=== PATIENT | female | born 1980 | race Caucasian/White ===

== ENCOUNTER 2017-09-30 22:54 | Emergency (ER) | payer OTHER ==
[~2017-09-30] VITALS: Ht 162.6 cm; Wt 128.5 kg
[~2017-09-30 22:54] MED LIST: AZIT250T6 PO; CHLO15MO2 PO; HYDR-971 PO; IBUP800T19 PO; PENI500T PO
[2017-09-30 23:29] VITALS: BP 131/92
--- NOTE | 2017-09-30 23:40 | PHYS DOC ---
Past History Past Medical History: Cancer Past Surgical History: Appendectomy, , Tonsillectomy, Other Alcohol Use: Rarely Drug Use: None Adult General Chief Complaint Chief Complaint: BACK PAIN OR INJURY [facility] HPI 37-year-old female presents with low back pain that started 2 days ago. The patient fell down after missing a step at home. This was a concrete step and she landed on her buttocks. She did not have significant pain afterwards, but the pain in her lower right back has been increasing. Today it is painful to bend over as well as stand up straight. She feels like her muscles in this area very tight and cramping. The patient is oriented on high-dose hydrocodone and Norflex daily. She is on these because of chronic pain as a result of Surgery and cancer treatment in her right leg. She denies fever or chills. She has no other injuries or complaints. Review of Systems Review of Systems Constitutional: Denies fever or chills [] Eyes: Denies change in visual acuity, redness, or eye pain [] HENT: Denies nasal congestion or sore throat [] Respiratory: Denies cough or shortness of breath [] Cardiovascular: No additional information not addressed in HPI [] GI: Denies abdominal pain, nausea, vomiting, bloody stools or diarrhea [] : Denies dysuria or hematuria [] Musculoskeletal: Low back pain.[] Integument: Denies rash or skin lesions [] Neurologic: Denies headache, focal weakness or sensory changes [] Endocrine: Denies polyuria or polydipsia [] All other systems were reviewed and found to be within normal limits, except as documented in this note. Allergies Allergies Allergies Coded Allergies Type Severity Reaction Last Updated Verified cephalexin Allergy Intermediate rash 11/27/14 No Cephalosporins Allergy Unknown 06/06/15 Yes prochlorperazine Allergy Unknown 06/06/15 Yes sargramostim Allergy Unknown 06/06/15 Yes vancomycin Allergy Unknown 12/17/14 No Physical Exam Physical Exam Constitutional: Well developed, well nourished, no acute distress, non-toxic appearance. [] HENT: Normocephalic, atraumatic, bilateral external ears normal, oropharynx moist, no oral exudates, nose normal. [] Eyes: PERRLA, EOMI, conjunctiva normal, no discharge. [] Neck: Normal range of motion, no tenderness, supple, no stridor. [] Cardiovascular:Heart rate regular rhythm, no murmur [] Lungs & Thorax: Bilateral breath sounds clear to auscultation [] Abdomen: Bowel sounds normal, soft, no tenderness, no masses, no pulsatile masses. [] Skin: Warm, dry, no erythema, no rash. [] Back: Tenderness over the right sacroiliac joint. Lower lumbar paraspinal muscle spasm, worse on the right[] Extremities: No tenderness, no cyanosis, no clubbing, ROM intact, no edema. [] Neurologic: Alert and oriented X 3, normal motor function, normal sensory function, no focal deficits noted. [] Psychologic: Affect normal, judgement normal, mood normal. [] Current Patient Data Vital Signs Vital Signs Date Time Temp Pulse Resp B/P (MAP) Pulse Ox O2 Delivery O2 Flow Rate FiO2 09/30/17 22:54 98.1 91 26 99 Room Air EKG EKG [] Radiology/Procedures Radiology/Procedures [] Course & Med Decision Making Course & Med Decision Making Pertinent Labs and Imaging studies reviewed. (See chart for details) Based on the history and physical exam, the patient has right sacroiliac pain. She likely strained this joint when she fell and the reflex spasm as the cause of her pain. I will give her 5 days of prednisone 50 mg to decrease inflammation. She is already on muscle relaxer twice a day. She will follow up with her PCP in 5 days. If her condition does not improve she'll discuss further options with him/her. [] Dragon Disclaimer Dragon Disclaimer This electronic medical record was generated, in whole or in part, using a voice recognition dictation system. Departure Departure: Referrals: OTTO HUDSON APRN (PCP) CHRISTY ALVAREZ DO Sep 30, 2017 23:40
[2017-09-30] MEDS ORDERED: PRED50TA PO (23:58)
[2017-10-01] MEDS ORDERED: predniSONE 20 MG TABLET PO ONE
== END 2017-10-01 00:03 | disposition home or self-care (01) ==
LOC: ER 22:54
DX: M53.3 Sacrococcygeal disorders, not elsewhere classified (principal); M54.5 Low back pain; Z90.49 Acquired absence of other specified parts of digestive tract; Z98.890 Other specified postprocedural states; Z88.1 Allergy status to other antibiotic agents; Z88.8 Allergy status to other drugs, medicaments and biological substances
CPT/HCPCS: 99283; J7512

== ENCOUNTER 2018-01-07 12:18 | Emergency (ER) | payer OTHER ==
[~2018-01-07] VITALS: Ht 162.6 cm; Wt 127.5 kg
[~2018-01-07 12:18] MED LIST changes: +PRED50TA PO
[2018-01-07] MEDS ORDERED: IV NORMAL SALINE 1,000ML 1,000 ML IV SCH (12:31)
--- NOTE | 2018-01-07 12:54 | PHYS DOC ---
Past History Past Medical History: Cancer Past Surgical History: Appendectomy, , Tonsillectomy, Other Smoking: Cigarettes, Less than 1pk/day Alcohol Use: Rarely Drug Use: None Adult General Chief Complaint Chief Complaint: ABDOMINAL PAIN HPI HPI Patient is a 37 year old female who presents in by EMS because of nausea and vomiting and abdominal pain. Patient states she started to have nausea 4 days ago and since yesterday had 5 episodes of nonbloody vomiting and 5 or 6 episodes of diarrhea. Patient complaining of constant right-sided abdominal pain as a constant pain that getting force with movement and vomiting. Patient states she was not able to take her home hydrocodone since last night because of vomiting and rated her pain 8/10. Patient complaining of chills. Patient denies fever, urinary symptoms, sick contact, throughout the same problem, vaginal bleeding or discharge. Patient had history of cholecystectomy and hysterectomy. According to EMR patient had history of appendectomy. Review of Systems Review of Systems Constitutional: Denies fever, reports chills [] Eyes: Denies change in visual acuity, redness, or eye pain [] HENT: Denies nasal congestion or sore throat [] Respiratory: Denies cough or shortness of breath [] Cardiovascular: No additional information not addressed in HPI [] GI: Reports abdominal pain, nausea, vomiting, diarrhea [] : Denies dysuria or hematuria [] Musculoskeletal: Denies back pain or joint pain [] Integument: Denies rash or skin lesions [] Neurologic: Denies headache, focal weakness or sensory changes [] Endocrine: Denies polyuria or polydipsia [] All other systems were reviewed and found to be within normal limits, except as documented in this note. Allergies Allergies Allergies Coded Allergies Type Severity Reaction Last Updated Verified cephalexin Allergy Intermediate rash 11/27/14 No Cephalosporins Allergy Unknown 06/06/15 Yes prochlorperazine Allergy Unknown 06/06/15 Yes sargramostim Allergy Unknown 06/06/15 Yes vancomycin Allergy Unknown 12/17/14 No Physical Exam Physical Exam Constitutional: Well nourished, moderate distress, non-toxic appearance, morbidly obese. [] HENT: Normocephalic, atraumatic, oropharynx moist, no oral exudates, nose normal. [] Eyes: PERRLA, EOMI, conjunctiva normal, no discharge. [] Neck: Normal range of motion, no tenderness, supple, no stridor. [] Cardiovascular:Heart rate regular rhythm, no murmur [] Lungs & Thorax: Bilateral breath sounds clear to auscultation [] Abdomen: Bowel sounds normal, soft, no tenderness, right-sided abdominal guarding without positive McBurney sign, no masses, no pulsatile masses. [] Skin: Warm, dry, no erythema, no rash. [] Back: No tenderness, no CVA tenderness. [] Extremities: No tenderness, no cyanosis, no clubbing, ROM intact, no edema. [] Neurologic: Alert and oriented X 3, normal motor function, normal sensory function, no focal deficits noted. [] Psychologic: Affect anxious, judgement normal, mood normal. [] EKG EKG [] Radiology/Procedures Radiology/Procedures [address] [address] IMAGING REPORT Signed PATIENT: SARAH URENA ACCOUNT: [id number] : 1980 LOCATION: ER AGE: 37 SEX: F EXAM STATUS: REG ER ORD. PHYSICIAN: RANDY SENA MD REASON: abdominal pain and nausea and vomiting and diarrhea PROCEDURE: CT ABD PELV W/ IV CONTRST ONLY CT abdomen and pelvis with contrast History: Mid lower abdominal pain, nausea and vomiting, diarrhea Technique: After the administration of intravenous contrast, CT imaging was performed of the abdomen and pelvis. No oral contrast was given as per request. Multiplanar images are reviewed. Exposure: One or more of the following individualized dose reduction techniques were utilized for this examination: 1. Automated exposure control 2. Adjustment of the mA and/or kV according to patient size 3. Use of iterative reconstruction technique. Comparison: CT pelvis exam February 28, 2016, no previous abdomen CT available; chest CT February 13, 2007 Findings: Small quantity of anterior right cardiophrenic fluid is stable compared with previous chest CT. There is likely hepatic steatosis. There has been cholecystectomy. There is no adrenal nodularity. Both kidneys enhance, no hydronephrosis. There is 2.7 cm left renal cyst. Evaluation of bowel is limited without oral contrast. Bowel is not significantly dilated. There is no significant free fluid or free air. Appendix caliber is upper limits of normal at 0.6 cm although no significant adjacent inflammatory-type change. There is suggestion of mild wall thickening of the more distal aspect of the ascending colon to the mid transverse colon. There is degenerative disc disease L5-S1. Impression: 1. While limited evaluation without oral contrast, there is suggestion of mild colonic wall thickening ascending to transverse colon as may be seen with colitis. 2. There is left renal cyst. 3. There is likely hepatic steatosis. Electronically signed by: Meme Leos MD (01/07/2018 1:40 PM) [facility] DICTATED AND SIGNED BY: MEME LEOS MD DATE: 01/07/18 1322 CC: RANDY SENA MD; CATRACHO SIMENTAL MD ~ Course & Med Decision Making Course & Med Decision Making Pertinent Labs and Imaging studies reviewed. (See chart for details) Evaluation of patient in ER showed 37-year-old male patient brought in by EMS because of nausea and vomiting and diarrhea and abdominal pain. Patient was anxious. Labs and physical exam was unremarkable except for morbid obesity. Of abdomen and pelvis showed colitis. Patient treated with IV fluid and Toradol and Zofran and states her nausea was better but still complaining of abdominal pain and treated with morphine. Plan to discharge patient home to diagnose of viral gastroenteritis and morbid obesity. Dragon Disclaimer Dragon Disclaimer This electronic medical record was generated, in whole or in part, using a voice recognition dictation system. Departure Departure: Impression: Primary Impression: Acute gastroenteritis Additional Impressions: Abdominal pain Colitis Tobacco abuse Tobacco abuse counseling Morbid obesity with BMI of 45.0-49.9, adult Disposition: 01 HOME, SELF-CARE (at 1430) Condition: IMPROVED Referrals: CATRACHO SIMENTAL MD (PCP) Patient Instructions: Abdominal Pain, Colitis, Smoking Cessation, Smoking Cessation, Tips For Success, Viral Gastroenteritis Additional Instructions: Drink plenty of liquids Follow-up with your primary care physician in 3-5 days Return to ER if not getting better Do not take solid foods for 24 hours Continue home pain medication Scripts Ondansetron (ZOFRAN ODT) 4 Mg Tab.rapdis 1 TAB SL Q8HRS, #15 TAB Prov: RANDY SENA MD 01/07/18 Problem Qualifiers RANDY SENA MD Jan 07, 2018 12:54
[2018-01-07] MEDS ORDERED: ONDANSETRON PF 4 MG/2 ML VIAL. IV ONE (13:00)
[2018-01-07] MEDS ORDERED: FAMOTIDINE 20 MG/2 ML VIAL IVP ONE (13:00)
[2018-01-07] MEDS ORDERED: KETOROLAC 30 MG/ML VIAL. IV ONE (13:00)
[2018-01-07] MEDS ORDERED: IOHEXOL 300 MG/ML 75 ML VIAL. IV ONE (13:00)
[2018-01-07 13:04] LABS: BASO # 0.1 x10^3/uL (0.0-0.2); BASO % 1 % (0-3); EOS # 0.2 x10^3/uL (0.0-0.7); EOS % 2 % (0-3); HEMATOCRIT 41.4 % (36.0-47.0); HEMOGLOBIN 14.3 g/dL (12.0-15.5); LYMPH # 2.2 x10^3/uL (1.0-4.8); LYMPH % 27 % (24-48); MEAN CORPUSCULAR HEMOGLOBIN 29 pg (25-35); MEAN CORPUSCULAR HGB CONC 35 g/dL (31-37); MEAN CORPUSCULAR VOLUME 84 fL (79-100); MONO # 0.5 x10^3/uL (0.0-1.1); MONO % 7 % (0-9); NEUT # 5.1 x10^3uL (1.8-7.7); NEUT % 63 % (31-73); PLATELET COUNT 297 x10^3/uL (140-400); RED BLOOD COUNT 4.93 x10^6/uL (3.50-5.40); RED CELL DISTRIBUTION WIDTH 13.1 % (11.5-14.5)
[2018-01-07 13:10] VITALS: BP 138/86
[2018-01-07 13:24] LABS: BACTERIA,URINE 0 /HPF (0-FEW); BILIRUBIN,URINE NEG (NEG); CLARITY,URINE CLEAR; COLOR,URINE YELLOW; GLUCOSE,URINE NEG (NEG); NITRITE,URINE NEG (NEG); RBC,URINE RARE /HPF (0-2); SQUAMOUS EPITHELIAL CELL,UR FEW /LPF; UROBILINOGEN,URINE 0.2 mg/dL (0.2 mg/dL); WBC,URINE OCC /HPF (0-4)
--- NOTE | 2018-01-07 13:43 | RAD ---
CT abdomen and pelvis with contrast History: Mid lower abdominal pain, nausea and vomiting, diarrhea Technique: After the administration of intravenous contrast, CT imaging was performed of the abdomen and pelvis. No oral contrast was given as per request. Multiplanar images are reviewed. Exposure: One or more of the following individualized dose reduction techniques were utilized for this examination: 1. Automated exposure control 2. Adjustment of the mA and/or kV according to patient size 3. Use of iterative reconstruction technique. Comparison: CT pelvis exam February 28, 2016, no previous abdomen CT available; chest CT February 13, 2007 Findings: Small quantity of anterior right cardiophrenic fluid is stable compared with previous chest CT. There is likely hepatic steatosis. There has been cholecystectomy. There is no adrenal nodularity. Both kidneys enhance, no hydronephrosis. There is 2.7 cm left renal cyst. Evaluation of bowel is limited without oral contrast. Bowel is not significantly dilated. There is no significant free fluid or free air. Appendix caliber is upper limits of normal at 0.6 cm although no significant adjacent inflammatory-type change. There is suggestion of mild wall thickening of the more distal aspect of the ascending colon to the mid transverse colon. There is degenerative disc disease L5-S1. Impression: 1. While limited evaluation without oral contrast, there is suggestion of mild colonic wall thickening ascending to transverse colon as may be seen with colitis. 2. There is left renal cyst. 3. There is likely hepatic steatosis. Electronically signed by: Cruzito Leos MD (01/07/2018 1:40 PM) [facility]
[2018-01-07 13:59] LABS: ALBUMIN 3.4 g/dL (3.4-5.0); CALCIUM 8.5 mg/dL (8.5-10.1); CREATININE 0.8 mg/dL (0.6-1.0); GFR 80.3; POTASSIUM 3.9 mmol/L (3.5-5.1); TOTAL BILIRUBIN 0.3 mg/dL (0.2-1.0); TOTAL PROTEIN 6.8 g/dL (6.4-8.2)
[2018-01-07] MEDS ORDERED: ONDA4TAB10 SL (14:29)
[2018-01-07] MEDS ORDERED: MORPHINE SULFATE 4 MG/ML DISP.SYRIN. IV ONE (14:30)
== END 2018-01-07 14:39 | disposition home or self-care (01) ==
LOC: ER 12:18
DX: K52.9 Noninfective gastroenteritis and colitis, unspecified (principal); F17.210 Nicotine dependence, cigarettes, uncomplicated; E66.01 Morbid (severe) obesity due to excess calories; Z71.6 Tobacco abuse counseling; Z90.89 Acquired absence of other organs; Z98.890 Other specified postprocedural states; Z68.42 Body mass index [BMI] 45.0-49.9, adult; Z88.1 Allergy status to other antibiotic agents; Z88.8 Allergy status to other drugs, medicaments and biological substances
CPT/HCPCS: 36415; 74177; 80053; 81001; 83690; 85025; 96361; 96374; 96375; 99285; J1885; J2270; J2405; Q9967; S0028; J7030

== ENCOUNTER 2019-02-18 17:50 | Emergency (ER) | payer OTHER ==
[~2019-02-18] VITALS: Ht 162.6 cm; Wt 108.0 kg
[~2019-02-18 17:50] MED LIST changes: +HYDR-3165 PO; -HYDR-971 PO; +ONDA4TAB10 SL
[2019-02-18] MEDS ORDERED: IV NORMAL SALINE 1,000ML 1,000 ML IV ONE (18:15)
[2019-02-18] MEDS ORDERED: ONDANSETRON PF 4 MG/2 ML VIAL. IVP ONE (18:15)
[2019-02-18] MEDS ORDERED: ONDANSETRON PF 4 MG/2 ML VIAL. ONE (18:20)
[2019-02-18 18:24] LABS: BASO # 0.1 x10^3/uL (0.0-0.2); BASO % 1 % (0-3); EOS # 0.3 x10^3/uL (0.0-0.7); EOS % 3 % (0-3); HEMATOCRIT 42.4 % (36.0-47.0); HEMOGLOBIN 14.2 g/dL (12.0-15.5); LYMPH # 3.2 x10^3/uL (1.0-4.8); LYMPH % 32 % (24-48); MEAN CORPUSCULAR HEMOGLOBIN 29 pg (25-35); MEAN CORPUSCULAR HGB CONC 33 g/dL (31-37); MEAN CORPUSCULAR VOLUME 88 fL (79-100); MONO # 0.7 x10^3/uL (0.0-1.1); MONO % 7 % (0-9); NEUT # 5.8 x10^3uL (1.8-7.7); NEUT % 58 % (31-73); PLATELET COUNT 308 x10^3/uL (140-400); RED BLOOD COUNT 4.82 x10^6/uL (3.50-5.40); RED CELL DISTRIBUTION WIDTH 13.6 % (11.5-14.5); WHITE BLOOD COUNT 10.1 x10^3/uL (4.0-11.0)
[2019-02-18] MEDS ORDERED: IOHEXOL 300 MG/ML 75 ML VIAL. IV ONE ×2 (18:30)
--- NOTE | 2019-02-18 18:32 | PHYS DOC ---
Past History Past Medical History: Cancer Past Surgical History: Cholecystectomy, , Tonsillectomy, Other Smoking: Cigarettes, Less than 1pk/day Alcohol Use: Rarely Drug Use: None Adult General Chief Complaint Chief Complaint: ABDOMINAL PAIN HPI HPI 38-year-old female presents with right upper quadrant abdominal pain. The patient had an aching abdominal cramping yesterday all day. She woke up this morning and continued to have this pain. It was tolerable so she went to work. After work, she went to the store and the pain increased. She is not short swel ling but decided to come in for evaluation. She has had some nausea and 2 episodes of vomiting. She had diarrhea today. Patient has had a cholecystectomy and total hysterectomy with oophorectomy. She still has her appendix. No history of hepatitis. She does not drink alcohol daily. She denies fever or chills. Review of Systems Review of Systems Constitutional: Denies fever or chills [] Eyes: Denies change in visual acuity, redness, or eye pain [] HENT: Denies nasal congestion or sore throat [] Respiratory: Denies cough or shortness of breath [] Cardiovascular: No additional information not addressed in HPI [] GI: Right upper quadrant abdominal pain, nausea, vomiting, diarrhea [] : Denies dysuria or hematuria [] Musculoskeletal: Denies back pain or joint pain [] Integument: Denies rash or skin lesions [] Neurologic: Denies headache, focal weakness or sensory changes [] Endocrine: Denies polyuria or polydipsia [] All other systems were reviewed and found to be within normal limits, except as documented in this note. Current Medications Current Medications Current Medications Medications (Trade) Dose Ordered Sig/Judy Start Time Stop Time Status Last Admin Dose Admin Iohexol (Omnipaque 300 Mg/ml) 75 ml 1X ONCE 02/18/19 18:30 02/18/19 18:31 Ondansetron HCl (Zofran) 4 mg STK-MED ONCE 02/18/19 18:20 02/18/19 18:20 DC Sodium Chloride 1,000 ml @ 1,000 mls/hr 1X ONCE 02/18/19 18:15 02/18/19 19:14 02/18/19 18:23 1,000 MLS/HR Allergies Allergies Allergies Coded Allergies Type Severity Reaction Last Updated Verified cephalexin Allergy Intermediate rash 11/27/14 No Cephalosporins Allergy Unknown 06/06/15 Yes prochlorperazine Allergy Unknown 06/06/15 Yes sargramostim Allergy Unknown 06/06/15 Yes vancomycin Allergy Unknown 12/17/14 No Physical Exam Physical Exam Constitutional: Well developed, well nourished, no acute distress, non-toxic appearance. [] HENT: Normocephalic, atraumatic, bilateral external ears normal, oropharynx moist, no oral exudates, nose normal. [] Eyes: PERRLA, EOMI, conjunctiva normal, no discharge. [] Neck: Normal range of motion, no tenderness, supple, no stridor. [] Cardiovascular:Heart rate regular rhythm, no murmur [] Lungs & Thorax: Bilateral breath sounds clear to auscultation [] Abdomen: Bowel sounds normal, soft, right upper quadrant tenderness, no masses, no pulsatile masses. [] Skin: Warm, dry, no erythema, no rash. [] Back: No tenderness, no CVA tenderness. [] Extremities: No tenderness, no cyanosis, no clubbing, ROM intact, no edema. [] Neurologic: Alert and oriented X 3, normal motor function, normal sensory function, no focal deficits noted. [] Psychologic: Affect normal, judgement normal, mood normal. [] Current Patient Data Vital Signs Vital Signs Date Time Temp Pulse Resp B/P (MAP) Pulse Ox O2 Delivery O2 Flow Rate FiO2 02/18/19 18:00 97.4 73 18 99 Room Air Lab Results Laboratory Tests Test 02/18/19 18:07 White Blood Count 10.1 x10^3/uL (4.0-11.0) Red Blood Count 4.82 x10^6/uL (3.50-5.40) Hemoglobin 14.2 g/dL (12.0-15.5) Hematocrit 42.4 % (36.0-47.0) Mean Corpuscular Volume 88 fL (79-100) Mean Corpuscular Hemoglobin 29 pg (25-35) Mean Corpuscular Hemoglobin Concent 33 g/dL (31-37) Red Cell Distribution Width 13.6 % (11.5-14.5) Platelet Count 308 x10^3/uL (140-400) Neutrophils (%) (Auto) 58 % (31-73) Lymphocytes (%) (Auto) 32 % (24-48) Monocytes (%) (Auto) 7 % (0-9) Eosinophils (%) (Auto) 3 % (0-3) Basophils (%) (Auto) 1 % (0-3) Neutrophils # (Auto) 5.8 x10^3uL (1.8-7.7) Lymphocytes # (Auto) 3.2 x10^3/uL (1.0-4.8) Monocytes # (Auto) 0.7 x10^3/uL (0.0-1.1) Eosinophils # (Auto) 0.3 x10^3/uL (0.0-0.7) Basophils # (Auto) 0.1 x10^3/uL (0.0-0.2) EKG EKG [] Radiology/Procedures Radiology/Procedures [] Impressions: CT ABD PELV W/ IV CONTRST ONLY Indication: Right lower quadrant pain. Exposure: One or more of the following individualized dose reduction techniques were utilized for this examination: 1. Automated exposure control 2. Adjustment of the mA and/or kV according to patient size 3. Use of iterative reconstruction technique. Technique: Intravenous contrast was given. No oral contrast per request. Comparison: January 07, 2018 FINDINGS: Lung bases are clear. Liver enlarged, about 21 cm cephalocaudal. No definite focal hepatic mass. Spleen mildly enlarged, 13.5 cm. Pancreas appears unremarkable. No adrenal mass. Kidneys demonstrate enhancement symmetrically. Low-density lesion at the upper pole the left kidney measures 2.5 cm and 5 Hounsfield units, most compatible with a cyst. Also seen on prior. Gallbladder surgically absent. Aorta is nonaneurysmal. No significant lymph node enlargement. No significant small bowel distention. No evidence of acute colitis. A structure which is thought to represent normal appendix is seen in the right lower quadrant. No inflammatory type changes are seen in the right lower quadrant. No evidence of pneumoperitoneum. No significant ascites. Urinary bladder demonstrates mild wall thickening and mild ill-defined margins, correlate for cystitis. This has a fairly uniform appearance. No evidence of pelvic mass. Vertebral body height and alignment are intact. Mild degenerative spurring. Degenerative changes of both hips. Subchondral sclerotic focus at the left acetabulum likely a incidental bone island. IMPRESSION: 1. Mild hepatosplenomegaly. 2. Left renal lesion, most compatible with a cyst. 3. Mild circumferential irregular urinary bladder wall thickening, correlate for acute or chronic cystitis. Electronically signed by: Peter Carson MD (02/18/2019 6:56 PM) [facility] DICTATED AND SIGNED BY: PETER ACRSON MD DATE: 02/18/191855 CC: CHRISTY ALVAREZ DO; CATRACHO SIMENTAL MD ~ Course & Med Decision Making Course & Med Decision Making Pertinent Labs and Imaging studies reviewed. (See chart for details) The patient's labs are unremarkable. Her urinalysis suggest possible UTI. Her CT of the abdomen pelvis is negative for acute findings but also suggestive of acute cystitis. I have treated the patient was 750 mg of levofloxacin IV due to her cephalosporin allergy. I will also discharge her with additional 5 days of levofloxacin 750mg daily. I will also give her a prescription for zofran ODT and a short course of [place] 5/325. [] Dragon Disclaimer Dragon Disclaimer This electronic medical record was generated, in whole or in part, using a voice recognition dictation system. Departure Departure: Impression: Primary Impression: Abdominal pain Additional Impression: UTI (urinary tract infection) Disposition: HOME, SELF-CARE Condition: STABLE Referrals: CATRACHO SIMENTAL MD (PCP) Patient Instructions: Abdominal Pain, [id number], Urinary Tract Infection, [id number] Scripts Hydrocodone Bit/Acetaminophen (NORCO 5-325 TABLET) 1 Each Tablet 1 TAB PO PRN Q6HRS PRN for PAIN, #10 TAB 0 Refills Prov: CHRISTY ALVAREZ DO 02/18/19 Levofloxacin (LEVOFLOXACIN) 750 Mg Tablet 1 TAB PO DAILY for UTI for 6 Days, #6 TAB Prov: CHRISTY ALVAREZ DO 02/18/19 Ondansetron (ONDANSETRON ODT) 4 Mg Tab.rapdis 1 TAB PO PRN Q6-8HRS PRN for VOMITING, #16 TAB Prov: CHRISTY ALVAREZ DO 02/18/19 Problem Qualifiers Primary Impression: Abdominal pain Abdominal location: right upper quadrant Qualified Codes: R10.11 - Right upper quadrant pain Additional Impression: UTI (urinary tract infection) Urinary tract infection type: acute cystitis Hematuria presence: without hematuria Qualified Codes: N30.00 - Acute cystitis without hematuria CHRISTY ALVAREZ DO Feb 18, 2019 18:32
[2019-02-18 18:35] LABS: COLOR,URINE YELLOW
[2019-02-18 18:36] LABS: BILIRUBIN,URINE NEG (NEG); CLARITY,URINE HAZY; GLUCOSE,URINE NEG (NEG); NITRITE,URINE NEG (NEG); RBC,URINE 0 /HPF (0-2); UROBILINOGEN,URINE 0.2 mg/dL (0.2 mg/dL)
[2019-02-18 18:37] LABS: BACTERIA,URINE FEW /HPF (0-FEW); SQUAMOUS EPITHELIAL CELL,UR FEW /LPF
[2019-02-18 18:38] LABS: ALBUMIN 3.8 g/dL (3.4-5.0); CALCIUM 8.7 mg/dL (8.5-10.1); CREATININE 0.8 mg/dL (0.6-1.0); GFR 79.9; POTASSIUM 3.8 mmol/L (3.5-5.1); TOTAL BILIRUBIN 0.2 mg/dL (0.2-1.0); TOTAL PROTEIN 7.6 g/dL (6.4-8.2)
[2019-02-18] MEDS ORDERED: KETOROLAC 30 MG/ML VIAL. IVP ONE (18:45)
--- NOTE | 2019-02-18 18:59 | RAD ---
CT ABD PELV W/ IV CONTRST ONLY Indication: Right lower quadrant pain. Exposure: One or more of the following individualized dose reduction techniques were utilized for this examination: 1. Automated exposure control 2. Adjustment of the mA and/or kV according to patient size 3. Use of iterative reconstruction technique. Technique: Intravenous contrast was given. No oral contrast per request. Comparison: January 07, 2018 FINDINGS: Lung bases are clear. Liver enlarged, about 21 cm cephalocaudal. No definite focal hepatic mass. Spleen mildly enlarged, 13.5 cm. Pancreas appears unremarkable. No adrenal mass. Kidneys demonstrate enhancement symmetrically. Low-density lesion at the upper pole the left kidney measures 2.5 cm and 5 Hounsfield units, most compatible with a cyst. Also seen on prior. Gallbladder surgically absent. Aorta is nonaneurysmal. No significant lymph node enlargement. No significant small bowel distention. No evidence of acute colitis. A structure which is thought to represent normal appendix is seen in the right lower quadrant. No inflammatory type changes are seen in the right lower quadrant. No evidence of pneumoperitoneum. No significant ascites. Urinary bladder demonstrates mild wall thickening and mild ill-defined margins, correlate for cystitis. This has a fairly uniform appearance. No evidence of pelvic mass. Vertebral body height and alignment are intact. Mild degenerative spurring. Degenerative changes of both hips. Subchondral sclerotic focus at the left acetabulum likely a incidental bone island. IMPRESSION: 1. Mild hepatosplenomegaly. 2. Left renal lesion, most compatible with a cyst. 3. Mild circumferential irregular urinary bladder wall thickening, correlate for acute or chronic cystitis. Electronically signed by: Peter Carson MD (02/18/2019 6:56 PM) [id number]
[2019-02-18] MEDS ORDERED: MORPHINE SULFATE 2 MG/ML DISP.SYRIN. IV ONE (19:15)
[2019-02-18] MEDS ORDERED: LEVO750T5 PO (20:39)
[2019-02-18] MEDS ORDERED: ONDA4TAB12 PO (20:39)
[2019-02-18] MEDS ORDERED: HYDR-3165 PO (20:46)
[2019-02-18 21:00] VITALS: BP 139/82
[2019-02-18] MEDS ORDERED: HYDROmorphone PF 1 MG/ML DISP.SYRIN IV ONE (21:00)
== END 2019-02-18 21:10 | disposition home or self-care (01) ==
LOC: ER 17:50
DX: N30.00 Acute cystitis without hematuria (principal); R11.2 Nausea with vomiting, unspecified; F17.210 Nicotine dependence, cigarettes, uncomplicated; Z90.49 Acquired absence of other specified parts of digestive tract; Z98.890 Other specified postprocedural states; Z88.1 Allergy status to other antibiotic agents; Z88.8 Allergy status to other drugs, medicaments and biological substances
CPT/HCPCS: 36415; 74177; 80053; 81001; 83690; 85025; 87086; 96361; 96365; 96375; 99285; J1170; J1885; J1956; J2270; J2405; Q9967; J7030

== ENCOUNTER 2019-05-28 09:47 | Emergency (ER) | payer OTHER ==
[~2019-05-28] VITALS: Ht 162.6 cm; Wt 128.5 kg
[~2019-05-28 09:47] MED LIST changes: +DIAZ5TAB PO; +LEVO750T5 PO; +ONDA4TAB12 PO
--- NOTE | 2019-05-28 10:13 | PHYS DOC ---
Past History Past Medical History: Cancer, Depression Past Surgical History: Cholecystectomy, , Tonsillectomy, Other Smoking: Cigarettes, Less than 1pk/day Alcohol Use: Rarely Drug Use: None Adult General Chief Complaint Chief Complaint: BACK PAIN - NO INJURY [facility] Patient is a 39-year-old female who presents with complaint of right-sided lower back pain that started this morning. Patient states that she just woke up with t he pain. She figures she must have just slept wrong. She states that when she woke up she took one of her muscle relaxants and a pain pill and later took a second pain pill. She states that she has not had any relief of her pain. She rates pain as severe. Patient denies any fever. She denies any nausea, vomiting or diarrhea. Patient does indicate that she is concerned that she could have a kidney infection.[] Review of Systems Review of Systems Constitutional: Denies fever or chills [] Respiratory: Denies cough or shortness of breath [] Cardiovascular: No additional information not addressed in HPI [] GI: Denies abdominal pain, nausea, vomiting or diarrhea [] Musculoskeletal: Complains of right lower back pain [] Integument: Denies rash or skin lesions [] Neurologic: Denies headache, focal weakness or sensory changes [] Allergies Allergies Allergies Coded Allergies Type Severity Reaction Last Updated Verified Cephalosporins Allergy Intermediate 02/18/19 Yes cephalexin Allergy Intermediate rash 11/27/14 No prochlorperazine Allergy Intermediate 02/18/19 Yes sargramostim Allergy Intermediate 02/18/19 Yes vancomycin Allergy Intermediate 02/18/19 No Physical Exam Physical Exam Constitutional: Well developed, well nourished, no acute distress, non-toxic appearance. [] HENT: Normocephalic, atraumatic, bilateral external ears normal, oropharynx moist, no oral exudates, nose normal. [] Eyes: PERRLA, EOMI, conjunctiva normal, no discharge. [] Neck: Normal range of motion, no tenderness, supple, no stridor. [] Cardiovascular:Heart rate regular rhythm, no murmur [] Lungs & Thorax: Bilateral breath sounds clear to auscultation [] Skin: Warm, dry, no erythema, no rash. [] Back: There is tenderness to palpation with palpable spasm noted in the right lumbar paraspinal musculature. [] Extremities: No tenderness, no cyanosis, no clubbing, ROM intact, no edema. [] EKG EKG [] Radiology/Procedures Radiology/Procedures [] Course & Med Decision Making Course & Med Decision Making Pertinent Labs and Imaging studies reviewed. (See chart for details) [] Dragon Disclaimer Dragon Disclaimer This electronic medical record was generated, in whole or in part, using a voice recognition dictation system. Departure Departure: Impression: Primary Impression: Low back pain Additional Impression: Trichomonas vaginalis infection Disposition: HOME, SELF-CARE Condition: STABLE Referrals: CATRACHO SIMENTAL MD (PCP) Patient Instructions: Back Pain, Adult, Trichomoniasis Scripts Metronidazole (FLAGYL) 500 Mg Tablet 1 TAB PO BID for infection, #14 TAB Prov: MARCOS HUTCHISON Jr. DO 05/28/19 Methylprednisolone (MEDROL) 4 Mg Tab.ds.pk 1 PKG PO UD for inflammation, #1 PKG Prov: MARCOS HUTCHISON Jr. DO 05/28/19 Diclofenac Sodium (DICLOFENAC SODIUM) 50 Mg Tablet.dr 1 TAB PO BID PRN for PAIN, #20 TAB Prov: MARCOS HUTCHISON Jr. DO 05/28/19 Problem Qualifiers Primary Impression: Low back pain Chronicity: acute Back pain laterality: right Sciatica presence: without sciatica Qualified Codes: M54.5 - Low back pain MARCOS HUTCHISON Jr. DO May 28, 2019 10:13
[2019-05-28] MEDS ORDERED: ORPHENADRINE CITRATE 60 MG/2 ML VIAL. IM ONE (10:15)
[2019-05-28] MEDS ORDERED: KETOROLAC 60 MG/2 ML VIAL. IM ONE (10:15)
[2019-05-28 10:43] LABS: BACTERIA,URINE FEW /HPF (0-FEW); BILIRUBIN,URINE NEG (NEG); CLARITY,URINE HAZY; COLOR,URINE YELLOW; GLUCOSE,URINE NEG (NEG); NITRITE,URINE NEG (NEG); SQUAMOUS EPITHELIAL CELL,UR FEW /LPF; TRICHOMONAS,URINE PRESENT; UROBILINOGEN,URINE 0.2 mg/dL (0.2 mg/dL)
[2019-05-28] MEDS ORDERED: METR500T PO (10:53)
[2019-05-28] MEDS ORDERED: METH4TAB2 PO (10:53)
[2019-05-28] MEDS ORDERED: DICL50TA4 PO (10:53)
== END 2019-05-28 11:02 | disposition home or self-care (01) ==
LOC: ER 09:47
DX: M54.5 Low back pain (principal); A59.01 Trichomonal vulvovaginitis; F17.210 Nicotine dependence, cigarettes, uncomplicated; Z88.1 Allergy status to other antibiotic agents; Z88.8 Allergy status to other drugs, medicaments and biological substances
CPT/HCPCS: 81001; 87086; 96372; 99284; J1885; J2360

== ENCOUNTER 2019-08-08 19:10 | Emergency (ER) | payer OTHER ==
[~2019-08-08] VITALS: Ht 162.6 cm; Wt 128.5 kg
[~2019-08-08 19:10] MED LIST changes: +DICL50TA4 PO; +METH4TAB2 PO; +METR500T PO
--- NOTE | 2019-08-08 19:31 | PHYS DOC ---
Past History Past Medical History: Anxiety, Cancer, Depression Past Medical History Chronic Pain, Hx. of Fibrosarcoma- Post surgery,chemo, radiation Past Surgical History: Cholecystectomy, , Tonsillectomy, Other Smoking: Cigarettes, Less than 1pk/day Alcohol Use: Rarely Drug Use: None General Adult EDM: Chief Complaint: ANXIETY/PANIC ATTACK HPI: HPI: "... I came in with my daughter.. I just had an anxiety attack...because she was acting out..." " I had to call the police on her.".." She was acting out because her boy friend had not called her back."'... she has ADHD and attention deficit disorder and also a anxiety disorder...." " All of her acting out c aused me to have an anxiety attack..." Patient is a 39 year old female who presents with above hx of anxiety and panic attack. Pt. has hx of anxiety disorder. Pt. follow s with Dr. Simental. Pt. denies excess caffeine use or illicit drugs. Patient does smoke. No recent travel. No specific ill contacts. No history of cardiac disorders. Review of Systems: Review of Systems: Constitutional: Denies fever or chills Eyes: Denies change in visual acuity HENT: Denies nasal congestion or sore throat Respiratory: Denies cough or shortness of breath Cardiovascular: Denies chest pain or edema GI: Denies abdominal pain, nausea, vomiting, bloody stools or diarrhea : Denies dysuria Musculoskeletal: Denies back pain or joint pain Integument: Denies rash Neurologic: Denies headache, focal weakness or sensory changes Endocrine: Denies polyuria or polydipsia Lymphatic: Denies swollen glands Psychiatric: Complaints of anxiety Heart Score: Risk Factors: Risk Factors: DM, Current or recent (<one month) smoker, HTN, HLP, family histo ry of CAD, obesity. Risk Scores: Score 0 - 3: 2.5% MACE over next 6 weeks - Discharge Home Score 4 - 6: 20.3% MACE over next 6 weeks - Admit for Clinical Observation Score 7 - 10: 72.7% MACE over next 6 weeks - Early Invasive Strategies Family History: Family History: Noncontributory to presentation Current Medications: Current Meds: See nursing for home meds Allergies: Allergies: Allergies Coded Allergies Type Severity Reaction Last Updated Verified Cephalosporins Allergy Intermediate 02/18/19 Yes cephalexin Allergy Intermediate rash 11/27/14 No prochlorperazine Allergy Intermediate 02/18/19 Yes sargramostim Allergy Intermediate 02/18/19 Yes vancomycin Allergy Intermediate 02/18/19 No Uncoded Allergies Type Severity Reaction Last Updated Verified lukine Allergy Severe sob 05/29/19 Physical Exam: PE: Constitutional: no acute distress, non-toxic appearance. [] HENT: Normocephalic, atraumatic, bilateral external ears normal, oropharynx moist, no oral exudates, nose normal. [] Eyes: PERRLA, EOMI, conjunctiva normal, no discharge. [] Neck: Normal range of motion, no tenderness, supple, no stridor. [] Cardiovascular:Heart rate regular rhythm, no murmur [] Lungs & Thorax: Bilateral breath sounds equal at apex with few scattered wheezes on auscultation [] Abdomen: Bowel sounds normal, soft, no tenderness, no masses, no pulsatile masses. Old surgery scars. Skin: Warm, dry, no erythema, no rash. [] Back: No tenderness, no CVA tenderness. [] Extremities: No tenderness, no cyanosis, no clubbing, ROM intact, no edema. [] Neurologic: Alert and oriented X 3, normal motor function, normal sensory function, no focal deficits noted. No cording appreciated Psychologic: Affect anxious, judgement normal, mood normal. [] EKG: EKG: My interpretation EKG shows sinus rhythm at 81 bpm. No acute morphology [] Radiology/Procedures: Radiology/Procedures: [] Course & Med Decision Making: Course & Med Decision Making Pertinent Labs and Imaging studies reviewed. (See chart for details) Patient to practice coping skills. Patient interviewed with daughter by tele- psych. Plan made for daughter follow-up. Patient to follow-up with Dr. Simental. Patient return if any concerns Impression: 1. Anxiety Reaction [] Laly Disclaimer: Laly Disclaimer: This electronic medical record was generated, in whole or in part, using a voice recognition dictation system. Departure Departure: Disposition: HOME/RESIDENCE PRIOR TO ADM Condition: STABLE Referrals: CATRACHO SIMENTAL MD (PCP) Laly Disclaimer This chart was dictated in whole or in part using Voice Recognition software in a busy, high-work load, and often noisy Emergency Department environment. It may contain unintended and wholly unrecognized errors or omissions. SREEDHAR ZACARIAS MD August 08, 2019 19:31
[2019-08-08 21:08] VITALS: BP 112/61
[2019-08-08 22:38] LABS: BARBITURATES NEG (NEG); BENZODIAZEPINES POS (NEG); CANNABINOIDS NEG (NEG); COCAINE NEG (NEG); METHADONE NEG (NEG); OPIATES POS (NEG); PHENCYCLIDINE NEG (NEG)
[2019-08-08 22:42] LABS: AMPHETAMINE/METHAMPHETAMINE NEG (NEG)
[2019-08-08 22:48] LABS: BILIRUBIN,URINE NEG (NEG); CLARITY,URINE CLEAR; COLOR,URINE YELLOW; GLUCOSE,URINE NEG (NEG)
[2019-08-08 22:49] LABS: NITRITE,URINE NEG (NEG); UROBILINOGEN,URINE 0.2 mg/dL (0.2 mg/dL); WBC,URINE 0 /HPF (0-4)
[2019-08-08 22:50] LABS: BACTERIA,URINE FEW /HPF (0-FEW); SQUAMOUS EPITHELIAL CELL,UR MOD /LPF
[2019-08-08 22:52] LABS: HYALINE CASTS, URINE FEW /HPF
--- NOTE | 2019-08-09 05:04 | EKG ---
[address] [address] Test Date: 2019-08-08 Test Time: 19:15:50 Pat Name: SARAH URENA Department: Room: Gender: F Job Hand: : 1980 Requested By: SREEDHAR ZACARIAS Order Number: [id number] Reading MD: Merhdad Haynes MD Measurements Intervals Tensed Rate: 81 P: 28 SD: 160 QRS: 52 QRSD: 104 T: 54 QT: 342 QTc: 398 Interpretive Statements SINUS RHYTHM Electronically Signed On 08-11-2019 12:19:11 CDT by Mehrdad Haynes MD
== END 2019-08-08 23:00 | disposition home or self-care (01) ==
LOC: ER 19:10
DX: F41.9 Anxiety disorder, unspecified (principal); F32.9 Major depressive disorder, single episode, unspecified; F17.210 Nicotine dependence, cigarettes, uncomplicated; G89.29 Other chronic pain; Z88.1 Allergy status to other antibiotic agents; Z88.8 Allergy status to other drugs, medicaments and biological substances
CPT/HCPCS: 36415; 80307; 81001; 93005; 99284

== ENCOUNTER 2019-11-17 19:58 | Emergency (ER) | payer OTHER ==
[~2019-11-17] VITALS: Ht 165.1 cm; Wt 106.0 kg
[2019-11-17 20:10] VITALS: BP 126/69
--- NOTE | 2019-11-17 20:40 | PHYS DOC ---
Past History Past Medical History: Anxiety, Cancer, Depression Past Surgical History: Cholecystectomy, , Tonsillectomy, Other Smoking: Cigarettes, Less than 1pk/day Alcohol Use: Rarely Drug Use: None Adult General Chief Complaint Chief Complaint: HEAD, FACE, NECK, TRAUMA HPI HPI Patient is a 39-year-old female who presents with right orbit pain. Patient reports reaching overhead to grab iron in closet when it fell approximately 1 foot landing on her right cheekbone area. Patient did not lose consciousness, reports focal pain around the cheekbone area without any other concerning signs or symptoms such as headache, vision changes or loss, motor or sensory changes or neurological deficits. Patient took 800 mg ibuprofen without relief of pain and decided to transport to our facility for further evaluation Review of Systems Review of Systems Fourteen body systems of review of systems have been reviewed. See HPI for pertinent positives and negative responses, other bennett all other systems are negative, non-pertinent or non-contributory Allergies Allergies Allergies Coded Allergies Type Severity Reaction Last Updated Verified Cephalosporins Allergy Intermediate 02/18/19 Yes cephalexin Allergy Intermediate rash 11/27/14 No prochlorperazine Allergy Intermediate 02/18/19 Yes sargramostim Allergy Intermediate 02/18/19 Yes vancomycin Allergy Intermediate 02/18/19 No Uncoded Allergies Type Severity Reaction Last Updated Verified lukine Allergy Severe sob 05/29/19 Physical Exam Physical Exam Constitutional: Pt is oriented to person, place, and time. Pt appears well- developed and well-nourished. HENT: Head: Normocephalic and atraumatic. Mouth/Throat: Oropharynx is clear and moist. No hematomas or lacerations or abrasions to face or scalp OP clear, no blood, no malocclusion, dentition intact, negative bite test Nares clear, no nasal septal hematoma TMs clear, no hemotympanum Midface stable but tender to palpation along right cheekbone without any crepitus or step-off or other palpable abnormalities Eyes: Conjunctivae and EOM are normal. Pupils are equal, round, and reactive to light. Neck: C-spine midline nontender, no step-offs Cardiovascular: Normal rate, regular rhythm and normal heart sounds. Pulmonary/Chest: Effort normal and breath sounds normal. No respiratory distress. No wheezes. CTA bilaterally Abdominal: Soft. Bowel sounds are normal. Pt exhibits no distension. There is no tenderness. Musculoskeletal: No bony tenderness to extremities, no deformities, full ROM extremities Neurological: Pt is alert and oriented to person, place, and time. Moving all extremities willfully, able to wiggle all fingers and toes Alert and oriented x 3 Sensation grossly intact Skin: Skin is warm and dry. No abrasions, no lacerations Psychiatric: Behavior is appropriate for situation Nursing note and vitals reviewed. EKG EKG [] Radiology/Procedures Radiology/Procedures PROCEDURE: FACIAL BONES 3+V Three-view facial bones HISTORY: Dropped iron on to face Bernard and Stephen and lateral views were obtained The paranasal sinuses are clear. The visualized osseous structures appear grossly intact. IMPRESSION: No acute findings. Electronically signed by: Chucho Costa III, MD (11/17/2019 8:41 PM) [facility] Course & Med Decision Making Course & Med Decision Making Well-appearing ambulatory patient seen on immediate ER arrival ABCs non-concerning Comprehensive history and physical exam obtained, subsequent diagnostic studies ordered Negative radiographs discussed, discussed no indication for C-spine or head imaging based on mechanism of action and presenting symptoms etc. I did disclose this might be an acute presentation of more concerning pathology and close outpatient follow-up with PCP and neurologic monitoring by significant other in upcoming 24 to 48 hours is suggested, patient reports understanding an d can adhere to these recommendations Strict return precautions were discussed with good understanding by patient, all questions and concerns addressed prior to ER departure in stable condition with continued supportive care advised with ice and NSAIDs/Tylenol for as needed pain Dragon Disclaimer Dragon Disclaimer This electronic medical record was generated, in whole or in part, using a voice recognition dictation system. Departure Departure: Impression: Primary Impression: Facial injury Disposition: HOME/RESIDENCE PRIOR TO ADM Condition: STABLE Referrals: CATRACHO SIMENTAL MD (PCP) Patient Instructions: Facial or Scalp Contusion, RICE - Routine Care for Injuries Justification of Admission: Justification of Admission: Justification of Admission Dx: N/A NOAH CHAVEZ DO Nov 17, 2019 20:40
--- NOTE | 2019-11-17 20:44 | RAD ---
Three-view facial bones HISTORY: Dropped iron on to face Bernard and Stephen and lateral views were obtained The paranasal sinuses are clear. The visualized osseous structures appear grossly intact. IMPRESSION: No acute findings. Electronically signed by: Chucho Costa III, MD (11/17/2019 8:41 PM) [facility]
[2019-11-17] MEDS: ACETAMINOPHEN 500 MG TABLET PO ONE (21:08)
== END 2019-11-17 21:09 | disposition home or self-care (01) ==
LOC: ER 19:58
DX: S09.93XA Unspecified injury of face, initial encounter (principal); F17.210 Nicotine dependence, cigarettes, uncomplicated; Z88.1 Allergy status to other antibiotic agents; Z88.8 Allergy status to other drugs, medicaments and biological substances; W18.39XA Other fall on same level, initial encounter; Y93.89 Activity, other specified; Y92.89 Other specified places as the place of occurrence of the external cause; Y99.8 Other external cause status
CPT/HCPCS: 70150; 99283; 99284

== ENCOUNTER 2020-01-18 17:37 | Emergency (ER) | payer OTHER ==
[~2020-01-18] VITALS: Ht 165.1 cm; Wt 110.0 kg
--- NOTE | 2020-01-18 17:55 | PHYS DOC ---
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 My daughter was having a emotional event and had a generalized argument with her when I had a syncopal or seizure like event,... I do not know how long I was out... I have had a previous seizure once.... They say I fell and hit my head..." Patient is a 39 year old female who presents with above hx and complaints of mental status change, syncope and possible seizure. Patient was in a argument or discussion with her daughter who was having an emotional event, when she reportedly lost consciousness and hit her head and some possible seizure activity. Patient believes had 1 previous seizure. Patient has somewhat extensive medical history chronic pain, fibromyalgia, colitis, tobacco abuse, morbid obesity, chronic abdomen pain, syncopal, falls, chronic dental pain, gastroenteritis, GERD, and diagnosis of rhabdo myosarcoma age 17 with her . Patient underwent chemotherapy, surgery and radiation. Patient follows have not shown any recurrence. Patient denies any recent travel except to [facility], no history of specific ill contacts. Patient denies any history of immunosuppression. Pt. follows with Dr. Gagnon Review of Systems: Review of Systems: Constitutional: Denies fever or chills Eyes: Denies change in visual acuity HENT: Denies nasal congestion or sore throat Respiratory: Complains of wheezing Cardiovascular: Denies chest pain or edema GI: Denies abdominal pain, nausea, vomiting, bloody stools or diarrhea : Denies dysuria Musculoskeletal: Denies back pain or joint pain Integument: Denies rash Neurologic: Complains of headache,. Denies focal weakness or sensory changes . Reports of syncope and possible seizure Endocrine: Denies polyuria or polydipsia Lymphatic: Denies swollen glands Psychiatric: Complains of anxiety Family History: Family History: Father had ME at age 50 mother has hypertension, has a cousin had a ME at 50 Current Medications: Current Meds: See nursing for home medications Allergies: Allergies: Allergies Coded Allergies Type Severity Reaction Last Updated Verified Cephalosporins Allergy Intermediate 02/18/19 Yes cephalexin Allergy Intermediate rash 11/27/14 No prochlorperazine Allergy Intermediate 02/18/19 Yes sargramostim Allergy Intermediate 02/18/19 Yes vancomycin Allergy Intermediate 02/18/19 No Uncoded Allergies Type Severity Reaction Last Updated Verified lukine Allergy Severe sob 05/29/19 Physical Exam: PE: Constitutional: no acute distress, non-toxic appearance. [] HENT: Normocephalic, complains of contusion to back and, bilateral external ears normal, oropharynx moist, no oral exudates, nose normal. [] Eyes: PERRLA, EOMI, conjunctiva normal, no discharge. [] Neck: Normal range of motion, mild upper neck tenderness, supple, no stridor. [] Cardiovascular:Heart rate regular rhythm, no murmur [] Lungs & Thorax: Bilateral breath sounds equal apex with scattered wheezes auscultation [] Abdomen: Bowel sounds normal, soft, no tenderness, no masses, no pulsatile masses. Old surgery scars Skin: Warm, dry, no erythema, no rash. [] Back: No tenderness, no CVA tenderness. [] Extremities: No tenderness, no cyanosis, no clubbing, ROM intact, no edema. Large scar above right knee from previous rhabdomyosarcoma surgeries Neurologic: Alert and oriented X 3, moves all extremities on request, has distal sensory, no focal deficits noted. DTRs are +2 at brachial and patella. 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 No drift. Distal sensation. Psychologic: Affect anxious , judgement patient is interactive, mood normal. [] EKG: EKG: My interpretation EKG shows a sinus rhythm at 61 bpm. Mild left axis. No f indings of acute STEMI of contralateral changes. [] Radiology/Procedures: Radiology/Procedures: [][address] [address] IMAGING REPORT Signed PATIENT: SARAH URENA ACCOUNT: [id number] : 1980 LOCATION: ER AGE: 39 SEX: F EXAM STATUS: REG ER ORD. PHYSICIAN: SREEDHAR ZACARIAS MD REASON: hx seizure , mental status change PROCEDURE: CT HEAD AND CERVICAL SPINE WO CT HEAD AND CERVICAL SPINE WO dated 01/18/2020 5:57 PM. Comparison: None. Clinical Indication: Reason: hx seizure , mental status change / Spl. Instructions: / History: , HEAD AND NECK PAIN Technical factors: Contiguous 5 mm axial images of the head were obtained from the skullbase to the vertex. No contrast was administered. In addition, 3 mm axial images of the cervical spine were acquired with thin cut coronal and sagittal reconstructions. One or more of the following individualized dose reduction techniques were utilized for this examination: 1. Automated exposure control 2. Adjustment of the mA and/or kV according to patient size 3. Use of iterative reconstruction technique Findings head: Ventricles and sulci are within normal limits for age. No evidence of ventricular shift or mass effect. Brain parenchyma is of normal attenuation. There is no evidence of hemorrhage or extra-axial collection. Visualized paranasal sinuses and mastoid air cells are clear. No acute osseous abnormality. There is some partially calcified soft tissue nodules in the posterior left scalp near the occiput that have increased in size from prior study, largest measuring 2.1 cm versus 1.6 cm previously. IMPRESSION HEAD: 1. No evidence of acute intracranial hemorrhage or mass. 2. There is some partially calcified soft tissue nodules in the posterior left scalp near the occiput that have increased in size from prior exam, nonspecific. Recommend physical exam correlation. Findings cervical spine: Images were acquired from the skull base to T1. There is straightening of the normal cervical lordosis, otherwise sagittal alignment is anatomic. Vertebral body heights are maintained. No prevertebral soft tissue swelling. Posterior elements are intact. No fractures are identified. Mild endplate hypertrophic changes throughout. Mild multilevel uncovertebral spurring. No focal disc herniation. The bony canal and foramen are adequate. The soft tissue structures are otherwise unremarkable. Limited images of lung apices are clear. IMPRESSION CERVICAL SPINE: 1. No evidence of fracture or malalignment. 2. Mild multilevel spondylosis. Electronically signed by: Peter Garvey MD (01/18/2020 7:06 PM) [facility] DICTATED AND SIGNED BY: PETER GARVEY MD DATE: 01/18/20 1906 CC: SREEDHAR ZACARIAS MD; CATRACHO GAGNON MD ~ [address] [address] IMAGING REPORT Signed PATIENT: AYANNASARAH Jaqueline ACCOUNT: [id number] : 1980 LOCATION: ER AGE: 39 SEX: F EXAM STATUS: REG ER ORD. PHYSICIAN: SREEDHAR ZACARIAS MD REASON: seizure, rhonchi PROCEDURE: PORTABLE CHEST 1V Single view chest dated 01/28/2020: No comparison available. Clinical Indication: Seizure. Rhonchi.. Findings: Single upright portable exam of the chest was performed. Heart size and mediastinal contours are within normal limits given technique. The lungs are clear without evidence of focal consolidation. Vascular interstitium is within normal limits. Impression:: No acute radiographic abnormality. Electronically signed by: Peter Garvey MD (01/18/2020 7:19 PM) [facility] DICTATED AND SIGNED BY: PETER GARVEY MD DATE: 01/18/201918 CC: SREEDHAR ZACARIAS MD; CATRACHO GAGNON MD ~ Heart Score: HEART Score for Chest Pain: HEART Score for Chest Pain Response (Comments) Value History Slighlty/Non-Suspicious 0 ECG Normal 0 Age < 45 0 Risk Factors 1 or 2 Risk Factors 1 Total 1 Risk Factors: Risk Factors: DM, Current or recent (<one month) smoker, HTN, HLP, family history of CAD, obesity. Risk Scores: Score 0 - 3: 2.5% MACE over next 6 weeks - Discharge Home Score 4 - 6: 20.3% MACE over next 6 weeks - Admit for Clinical Observation Score 7 - 10: 72.7% MACE over next 6 weeks - Early Invasive Strategies Course & Med Decision Making: Course & Med Decision Making Pertinent Labs and Imaging studies reviewed. (See chart for details) Pt currently requesting discharge. State home is safe and daughter in now in [facility]. Patient declines admission at this time. Exhibits [facility] capacity. Impression: 1. Syncope/ Seizure Event 2. Low back pain [] Dragon Disclaimer: Laly Disclaimer: This electronic medical record was generated, in whole or in part, using a voice recognition dictation system. Departure Departure: Referrals: CATRACHO GAGNON MD (PCP) Scripts Hydrocodone/Ibuprofen (HYDROCODONE-IBUPROFEN 7.5-200 ) 1 Each Tablet 1 TAB PO PRN Q6HRS PRN for PAIN, #30 TAB 0 Refills Prov: SREEDHAR ZACARIAS MD 01/18/20 SREEDHAR ZACARIAS MD Jan 18, 2020 17:55
[2020-01-18] MEDS ORDERED: IV RINGERS SOLUTION,LACTATED 1,000 ML IV SCH (17:57)
--- NOTE | 2020-01-18 18:07 | EKG ---
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
[2020-01-18 18:33] LABS: BASO # 0.1 x10^3/uL (0.0-0.2); BASO % 1 % (0-3); EOS # 0.2 x10^3/uL (0.0-0.7); EOS % 2 % (0-3); HEMATOCRIT 44.4 % (36.0-47.0); HEMOGLOBIN 14.8 g/dL (12.0-15.5); LYMPH # 2.7 x10^3/uL (1.0-4.8); LYMPH % 31 % (24-48); MEAN CORPUSCULAR HEMOGLOBIN 30 pg (25-35); MEAN CORPUSCULAR HGB CONC 33 g/dL (31-37); MEAN CORPUSCULAR VOLUME 91 fL (79-100); MONO # 0.7 x10^3/uL (0.0-1.1); MONO % 8 % (0-9); NEUT % 58 % (31-73); PLATELET COUNT 266 x10^3/uL (140-400); RED BLOOD COUNT 4.89 x10^6/uL (3.50-5.40); RED CELL DISTRIBUTION WIDTH 14.5 % (11.5-14.5); WHITE BLOOD COUNT 8.6 x10^3/uL (4.0-11.0)
[2020-01-18 18:58] LABS: CALCIUM 9.8 mg/dL (8.5-10.1); CREATININE 0.9 mg/dL (0.6-1.0); GFR 69.3; POTASSIUM 3.6 mmol/L (3.5-5.1)
--- NOTE | 2020-01-18 19:09 | RAD ---
CT HEAD AND CERVICAL SPINE WO dated 01/18/2020 5:57 PM. Comparison: None. Clinical Indication: Reason: hx seizure , mental status change / Spl. Instructions: / History: , HEAD AND NECK PAIN Technical factors: Contiguous 5 mm axial images of the head were obtained from the skullbase to the vertex. No contrast was administered. In addition, 3 mm axial images of the cervical spine were acquired with thin cut coronal and sagittal reconstructions. One or more of the following individualized dose reduction techniques were utilized for this examination: 1. Automated exposure control 2. Adjustment of the mA and/or kV according to patient size 3. Use of iterative reconstruction technique Findings head: Ventricles and sulci are within normal limits for age. No evidence of ventricular shift or mass effect. Brain parenchyma is of normal attenuation. There is no evidence of hemorrhage or extra-axial collection. Visualized paranasal sinuses and mastoid air cells are clear. No acute osseous abnormality. There is some partially calcified soft tissue nodules in the posterior left scalp near the occiput that have increased in size from prior study, largest measuring 2.1 cm versus 1.6 cm previously. IMPRESSION HEAD: 1. No evidence of acute intracranial hemorrhage or mass. 2. There is some partially calcified soft tissue nodules in the posterior left scalp near the occiput that have increased in size from prior exam, nonspecific. Recommend physical exam correlation. Findings cervical spine: Images were acquired from the skull base to T1. There is straightening of the normal cervical lordosis, otherwise sagittal alignment is anatomic. Vertebral body heights are maintained. No prevertebral soft tissue swelling. Posterior elements are intact. No fractures are identified. Mild endplate hypertrophic changes throughout. Mild multilevel uncovertebral spurring. No focal disc herniation. The bony canal and foramen are adequate. The soft tissue structures are otherwise unremarkable. Limited images of lung apices are clear. IMPRESSION CERVICAL SPINE: 1. No evidence of fracture or malalignment. 2. Mild multilevel spondylosis. Electronically signed by: Peter Garvey MD (01/18/2020 7:06 PM) [facility]
[2020-01-18 19:12] LABS: ALBUMIN 4.1 g/dL (3.4-5.0); DIRECT BILIRUBIN 0.1 mg/dL (0.0-0.2); MAGNESIUM 2.4 mg/dL (1.8-2.4); TOTAL BILIRUBIN 0.5 mg/dL (0.2-1.0); TOTAL PROTEIN 8.2 g/dL (6.4-8.2)
--- NOTE | 2020-01-18 19:23 | RAD ---
Single view chest dated 01/28/2020: No comparison available. Clinical Indication: Seizure. Rhonchi.. Findings: Single upright portable exam of the chest was performed. Heart size and mediastinal contours are within normal limits given technique. The lungs are clear without evidence of focal consolidation. Vascular interstitium is within normal limits. Impression:: No acute radiographic abnormality. Electronically signed by: Peter Garvey MD (01/18/2020 7:19 PM) [facility]
[2020-01-18] MEDS ORDERED: oxyCODONE/APAP 7.5/325 1 TAB TABLET PO ONE (20:15)
[2020-01-18 21:04] LABS: BARBITURATES NEG (NEG); BENZODIAZEPINES NEG (NEG); CANNABINOIDS NEG (NEG); COCAINE NEG (NEG); METHADONE NEG (NEG); OPIATES POS (NEG); PHENCYCLIDINE NEG (NEG)
[2020-01-18 21:20] LABS: AMPHETAMINE/METHAMPHETAMINE NEG (NEG)
[2020-01-18 21:29] LABS: BILIRUBIN,URINE NEG (NEG); CLARITY,URINE CLEAR; COLOR,URINE YELLOW; GLUCOSE,URINE NEG (NEG)
[2020-01-18 21:30] LABS: BACTERIA,URINE 0 /HPF (0-FEW); NITRITE,URINE NEG (NEG); RBC,URINE 0 /HPF (0-2); UROBILINOGEN,URINE 0.2 mg/dL (0.2 mg/dL)
[2020-01-18] MEDS ORDERED: MORPHINE SULFATE 10 MG/ML SYRINGE. ONE (21:41)
[2020-01-18] MEDS ORDERED: HYDR-1179 PO (21:46)
[2020-01-18 21:53] VITALS: BP 186/102
[2020-01-18] MEDS ORDERED: MORPHINE SULFATE 10 MG/ML SYRINGE. SQ ONE (22:00)
== END 2020-01-18 21:52 | disposition home or self-care (01) ==
LOC: ER 17:37
DX: R55 Syncope and collapse (principal); M54.5 Low back pain; R41.82 Altered mental status, unspecified; M79.7 Fibromyalgia; E78.00 Pure hypercholesterolemia, unspecified; G43.909 Migraine, unspecified, not intractable, without status migrainosus; F41.9 Anxiety disorder, unspecified; F32.9 Major depressive disorder, single episode, unspecified; F17.210 Nicotine dependence, cigarettes, uncomplicated; K21.9 Gastro-esophageal reflux disease without esophagitis; Z88.1 Allergy status to other antibiotic agents; Z88.8 Allergy status to other drugs, medicaments and biological substances
CPT/HCPCS: 36415; 70450; 71045; 72125; 80048; 80076; 80307; 81001; 81025; 82550; 83605; 83690; 83735; 83880; 84443; 84484; 85025; 85379; 85610; 85730; 93005; 96360; 96372; 99285; G0480; J2270; J7120

== ENCOUNTER 2020-02-14 09:26 | Emergency (ER) | payer OTHER ==
[~2020-02-14] VITALS: Ht 165.1 cm; Wt 110.0 kg
[2020-02-14 09:26] VITALS: BP 141/76
[~2020-02-14 09:26] MED LIST changes: +HYDR-1179 PO
[2020-02-14] MEDS ORDERED: HYDR-3165 PO (09:54)
--- NOTE | 2020-02-14 09:55 | PHYS DOC ---
Past History Past Medical History: Anxiety, Cancer, Depression, Fibromyalgia, High Cholesterol, Migraines, Other Past Surgical History: Cancer Surgery, Cholecystectomy, , Hysterectomy, Tonsillectomy Smoking: Cigarettes, Less than 1pk/day Alcohol Use: Rarely Drug Use: None Adult General Chief Complaint Chief Complaint: LOWER EXT PAIN HPI HPI Patient is a 39-year-old female presenting for medication refill. She has chronic history of pain secondary to cancer. She is managed in outpatient setting by her primary care physician. States she takes [employer] 5 x4 times daily, this was confirmed on KTra review. She has been getting this prescription monthly on a scheduled basis for greater than 24 months. Last fill date was 01/06/2020. She was scheduled to have outpatient follow-up with primary care physician on 02/06/2020 for review and fill of medication but this visit was subsequently canceled per patient due to PCP. Patient unable to be seen over the weekend, is planning to obtain new prescription for medication this upcoming Sunday. She contacted PCP office today to discuss options and she was advised to come to our ER for short-term pain control. Besides more pain than usual, patient is at baseline health, no new concerning signs or symptoms Review of Systems Review of Systems Fourteen body systems of review of systems have been reviewed. See HPI for pertinent positives and negative responses, other bennett all other systems are negative, non-pertinent or non-contributory Allergies Allergies Allergies Coded Allergies Type Severity Reaction Last Updated Verified Cephalosporins Allergy Intermediate 02/18/19 Yes cephalexin Allergy Intermediate rash 11/27/14 No prochlorperazine Allergy Intermediate 02/18/19 Yes sargramostim Allergy Intermediate 02/18/19 Yes vancomycin Allergy Intermediate 02/18/19 No Physical Exam Physical Exam Constitutional: Well developed, well nourished, no acute distress, non-toxic appearance. HENT: Normocephalic, atraumatic, bilateral external ears normal, oropharynx moist, no oral exudates, nose normal. Eyes: PERRLA, EOMI, conjunctiva normal, no discharge. Neck: Normal range of motion, no tenderness, supple, no stridor. Cardiovascular: Heart rate regular, sinus rhythm, no murmurs rubs or gallops Lungs & Thorax: Bilateral breath sounds clear to auscultation Abdomen: Bowel sounds normal, soft, no tenderness, no masses, no pulsatile masses. Nonsurgical abdomen, no peritoneal signs Skin: Warm, dry, no erythema, no rash. Back: No midline tenderness, no CVA tenderness. Extremities: No tenderness, no cyanosis, no clubbing, ROM intact, no edema. Neurologic: Alert and oriented X 3, grossly normal motor & sensory function, no focal deficits noted. Psychologic: Affect normal, judgement normal, mood normal. EKG EKG [] Radiology/Procedures Radiology/Procedures [] Heart Score Risk Factors: Risk Factors: DM, Current or recent (<one month) smoker, HTN, HLP, family history of CAD, obesity. Risk Scores: Risk Factors: DM, Current or recent (<one month) smoker, HTN, HLP, family history of CAD, obesity. Course & Med Decision Making Course & Med Decision Making ABCs unremarkable in a nontoxic well-appearing ambulatory patient She is out of long-term pain prescription. She is seeking enough medication to last upcoming 48 hours until she can be seen and obtain new regularly prescribed prescription this upcoming Sunday which I feel is appropriate. Patient educated extensively on this medication but obviously since she has been on this for greater than 2 years she is well aware of the risk and benefits of such narcotic medication. X1 [employer] 5 administered while in ER, short-term prescription given. Patient reports her PCP is informed on her whereabouts and that she will be seen this upcoming Sunday Strict return precautions were discussed with good understanding by patient, all questions and concerns addressed prior to ER departure in stable condition Dragon Disclaimer Dragon Disclaimer This electronic medical record was generated, in whole or in part, using a voice recognition dictation system. Departure Departure: Impression: Primary Impression: Chronic pain Disposition: 01 DC HOME SELF CARE/HOMELESS Condition: STABLE Referrals: CATRACHO SIMENTAL MD (PCP) Scripts Hydrocodone Bit/Acetaminophen (NORCO 5-325 TABLET) 1 Each Tablet 1 TAB PO QID for severe pain, #10 TAB Prov: NOAH CHAVEZ DO 02/14/20 NOAH CHAVEZ DO Feb 14, 2020 09:54
[2020-02-14] MEDS ORDERED: HYDROcodone/APAP 5/325MG 1 TAB TABLET PO ONE (10:00)
== END 2020-02-14 10:05 | disposition home or self-care (01) ==
LOC: ER 09:26
DX: G89.29 Other chronic pain (principal); F41.9 Anxiety disorder, unspecified; F32.9 Major depressive disorder, single episode, unspecified; M79.7 Fibromyalgia; E78.00 Pure hypercholesterolemia, unspecified; G43.909 Migraine, unspecified, not intractable, without status migrainosus; F17.210 Nicotine dependence, cigarettes, uncomplicated; Z76.0 Encounter for issue of repeat prescription; Z88.1 Allergy status to other antibiotic agents; Z88.8 Allergy status to other drugs, medicaments and biological substances
CPT/HCPCS: 99283

== ENCOUNTER 2020-03-03 20:17 | Emergency (ER) | payer OTHER ==
[~2020-03-03] VITALS: Ht 162.6 cm; Wt 106.6 kg
[2020-03-03 20:34] VITALS: BP 118/96
[2020-03-03] MEDS ORDERED: HYDROcodone/APAP 5/325MG 1 TAB TABLET PO ONE (20:45)
--- NOTE | 2020-03-03 20:49 | PHYS DOC ---
Past History Past Medical History: Anxiety, Cancer, Hypertension Past Surgical History: Cholecystectomy, , Hysterectomy, Oophorectomy Smoking: Cigarettes, Less than 1pk/day Alcohol Use: Rarely Drug Use: None General Adult EDM: Chief Complaint: LACERATION/AVULSION HPI: HPI: Patient is a 3-year-old female who presents with cyst on top of her head. Patient states that she was brushing her hair when it started bleeding. Patient is reporting pain to the area. Patient reports taking hydrocodone prior to coming to the ER, with little relief. Bleeding is controlled. Review of Systems: Review of Systems: Constitutional: Denies fever or chills Eyes: Denies change in visual acuity HENT: Denies nasal congestion or sore throat, reports cyst on top of head Respiratory: Denies cough or shortness of breath Cardiovascular: Denies chest pain or edema GI: Denies abdominal pain, nausea, vomiting, bloody stools or diarrhea : Denies dysuria Musculoskeletal: Denies back pain or joint pain Integument: Denies rash Neurologic: Denies headache, focal weakness or sensory changes Endocrine: Denies polyuria or polydipsia Lymphatic: Denies swollen glands Psychiatric: Denies depression or anxiety Current Medications: Current Meds: Current Medications Medications (Trade) Dose Ordered Sig/Judy Start Time Stop Time Status Last Admin Dose Admin Acetaminophen/ Hydrocodone Bitart (Lortab 5/325) 1 tab 1X ONCE 03/03/20 20:45 03/03/20 20:46 UNV Allergies: Allergies: Allergies Coded Allergies Type Severity Reaction Last Updated Verified Cephalosporins Allergy Intermediate 02/18/19 Yes cephalexin Allergy Intermediate rash 11/27/14 No prochlorperazine Allergy Intermediate 02/18/19 Yes sargramostim Allergy Intermediate 02/18/19 Yes vancomycin Allergy Intermediate 02/18/19 No Physical Exam: PE: Constitutional: Well developed, well nourished, no acute distress, non-toxic appearance. [] HENT: Normocephalic, atraumatic, bilateral external ears normal, oropharynx moist, no oral exudates, nose normal. [] Eyes: PERRLA, EOMI, conjunctiva normal, no discharge. [] Neck: Normal range of motion, no tenderness, supple, no stridor. [] Cardiovascular:Heart rate regular rhythm, no murmur [] Lungs & Thorax: Bilateral breath sounds clear to auscultation [] Abdomen: Bowel sounds normal, soft, no tenderness, no masses, no pulsatile masses. [] Skin: Warm, dry, no erythema, no rash. Redness noted to top of head. No lace ration. No bleeding [] Back: No tenderness, no CVA tenderness. [] Extremities: No tenderness, no cyanosis, no clubbing, ROM intact, no edema. [] Neurologic: Alert and oriented X 3, normal motor function, normal sensory function, no focal deficits noted. [] Psychologic: Affect normal, judgement normal, mood normal. [] Current Patient Data: Vital Signs: Vital Signs Date Time Temp Pulse Resp B/P (MAP) Pulse Ox O2 Delivery O2 Flow Rate FiO2 03/03/20 20:34 98.3 88 18 118/96 (103) 98 Room Air EKG: EKG: [] Radiology/Procedures: Radiology/Procedures: [] Heart Score: Risk Factors: Risk Factors: DM, Current or recent (<one month) smoker, HTN, HLP, family history of CAD, obesity. Risk Scores: Score 0 - 3: 2.5% MACE over next 6 weeks - Discharge Home Score 4 - 6: 20.3% MACE over next 6 weeks - Admit for Clinical Observation Score 7 - 10: 72.7% MACE over next 6 weeks - Early Invasive Strategies Course & Med Decision Making: Course & Med Decision Making Pertinent Labs and Imaging studies reviewed. (See chart for details) [] 3-year-old female who presents to the ER for cyst on top of her head. Patient states she was brushing her hair this is started bleeding. Patient has been seen for this before by his PCP, who instructed patient to leave it the most to cause problems. Patient reports taking a hydrocodone at home, with little pain relief. Patient still reporting pain in the ED. We will order her hydrocodone in the ER. Bleeding is controlled. No laceration noted. Will DC patient to home. Patient to follow-up with PCP for referral to dermatology. Laly Disclaimer: Laly Disclaimer: This electronic medical record was generated, in whole or in part, using a voice recognition dictation system. Departure Departure: Impression: Primary Impression: Cyst Disposition: 01 DC HOME SELF CARE/HOMELESS Condition: IMPROVED Referrals: CATRACHO SIMENTAL MD (PCP) Patient Instructions: Abscess, [id number] Additional Instructions: Please follow-up with your primary care physician in the next few days. Referral for dermatology is recommended. Continue taking ibuprofen and Tylenol for pain.EMERGENCY DEPARTMENT GENERAL DISCHARGE INSTRUCTIONS Thank you for coming to [facility] (ED) today and trusting us with you care. We trust that you had a positivie experience in our Emergency Department. If you wish to speak to the department management, you may call the director at [phone]. YOUR FOLLOW UP INSTRUCTIONS ARE FOLLOWS: 1. Do you have a private Doctor? If you do not have a private doctor, please ask for a resource list of physicians or clinics that may be able to assist you with follow up care. 2. The Emergency Physician has interpreted your x-rays. The X-Ray specialist will also review them. If there is a change in the findings, you will be notified in 48 hours when at all possible. 3. A lab test or culture has been done, your results will be reviewed and you will be notified if you need a change in treatment. ADDITIONAL INSTRUCTIONS AND INFORMATION: 1. Your care today has been supervised by a physician who is specially trained in emergency care. Many problems require more than one evaluation for a complete diagnosis and treatment. We recommend that you schedule your follow up appointment as recommended to ensure complete treatment of you illness or injury. If you are unable to obtain follow up care and continue to have a problem, or if your condition worsens, we recommend that you return to the ED. 2. We are not able to safely determine your condition over the phone nor are we able to give sound medical advice over the phone. For these safety reasons, if you call for medical advice we will ask you to come to the ED for further evaluation. 3. If you have any questions regarding these discharge instructions please call the ED at [phone]. SAFETY INFORMATION: In the interest of safety, wellness, and injury prevention; we encourage you to wear your sealbelt, if you smoke; quite smoking, and we encourage family to use a protective helmet for bicycling and other sporting events that present an increased risk for head injury. IF YOUR SYMPTOMS WORSEN OR NEW SYMPTOMS DEVELOP, OR YOU HAVE CONCERNS ABOUT YOUR CONDITION; OR IF YOUR CONDITION WORSENS WHILE YOU ARE WAITING FOR YOUR FOLLOW UP APPOINTMENT; EITHER CONTACT YOUR PRIMARY CARE DOCTOR, THE PHYSICIAN WHOSE NAME AND NUMBER YOU WERE GIVEN, OR RETURN TO THE ED IMMEDIATELY. BC LOVETT APRN Mar 03, 2020 20:48
== END 2020-03-03 21:00 | disposition home or self-care (01) ==
LOC: ER 20:17
DX: L72.8 Other follicular cysts of the skin and subcutaneous tissue (principal); F41.9 Anxiety disorder, unspecified; I10 Essential (primary) hypertension; F17.210 Nicotine dependence, cigarettes, uncomplicated; Z88.1 Allergy status to other antibiotic agents; Z88.8 Allergy status to other drugs, medicaments and biological substances
CPT/HCPCS: 99283

== ENCOUNTER 2020-04-05 19:28 | Emergency (ER) | payer OTHER ==
[~2020-04-05] VITALS: Ht 162.6 cm; Wt 116.4 kg
--- NOTE | 2020-04-05 19:41 | PHYS DOC ---
Past History Past Medical History: Anxiety, Cancer, Fibromyalgia, Hypertension Past Surgical History: Cholecystectomy, , Hysterectomy, Oophorectomy Smoking: Cigarettes, Less than 1pk/day Alcohol Use: Rarely Drug Use: None General Adult EDM: Chief Complaint: ANXIETY/PANIC ATTACK HPI: HPI: " My daughter.. she has bipolar.. and she was wanting me to take her to her friend s house .. she started yelling at me... said I did not love... her.. that she hated me.. .. then she call up her dad .. and was yelling at him.. then she started again on me.. well the police came.. and they arrested her for disturbance.. I am here because I am so upset.. having a panic attack.. I ve had this before.. usually a Xanax will break the panic.... I do not want any lab work and only EKGs this was not set up with for few minutes.... I am not heard and I have any chest pain short of breath I am just grieving over my daughter having to be arrested..." " My heart is broken.. about how bad my daughter acts with me... " Patient is a 39 year old female who presents with above hx and complaints 'broken heart" after argument with daughter were Police were called. Patient normally follows with Dr. Simental. Does have past medical history of hypertension, fibromyalgia, chronic pain, cancer fibrosarcoma-treated with surgery, history of anxiety and panic attacks. Patient currently declining EKG, labs x-rays or any work-up for only wants a trial of benzodiazepine. Patient issues static in the past or so to when she gets this upset. Patient is very emotionally upset about her daughters bipolar type behavior and how it affects the rest of the family. Patient daughter has been arrested so patient has no fear about unsafe living environment currently. Patient requesting discharge almost before completing her check-in process. Review of Systems: Review of Systems: Constitutional: Denies fever or chills Eyes: Denies change in visual acuity HENT: Denies nasal congestion or sore throat Respiratory: Denies cough or shortness of breath Cardiovascular: Denies chest pain or edema GI: Denies abdominal pain, nausea, vomiting, bloody stools or diarrhea : Denies dysuria Musculoskeletal: Denies back pain or joint pain Integument: Denies rash Neurologic: Denies headache, focal weakness or sensory changes Endocrine: Denies polyuria or polydipsia Lymphatic: Denies swollen glands Psychiatric: Complaints of situational depression. Complains of panic attack and anxiety Family History: Family History: Daughter has schizoaffective disorder and bipolar diagnosis Current Medications: Current Meds: See nursing for home meds Allergies: Allergies: Allergies Coded Allergies Type Severity Reaction Last Updated Verified Cephalosporins Allergy Intermediate 02/18/19 Yes cephalexin Allergy Intermediate rash 11/27/14 No prochlorperazine Allergy Intermediate 02/18/19 Yes sargramostim Allergy Intermediate 02/18/19 Yes vancomycin Allergy Intermediate 02/18/19 No Physical Exam: PE: Constitutional: in acute emotional distress, non-toxic appearance. [] HENT: Normocephalic, atraumatic, bilateral external ears normal, oropharynx moist, no oral exudates, nose normal. [] Eyes: PERRLA, EOMI, conjunctiva normal, no discharge. [] Neck: Normal range of motion, no tenderness, supple, no stridor. [] Cardiovascular:Heart rate regular rhythm, no murmur [] Lungs & Thorax: Bilateral breath sounds equal apex with few scattered wheezes auscultation [] Abdomen: Bowel sounds normal, soft, no tenderness, no masses, no pulsatile masses. Obese. Old surgery scars. Skin: Warm, dry, no erythema, no rash. [] Back: No tenderness, no CVA tenderness. [] Extremities: No tenderness, no cyanosis, no clubbing, ROM intact, no edema. Large scar right thigh-excision of fibroid myoma Neurologic: Alert and oriented X 3, normal motor function, normal sensory function, no focal deficits noted. [] Psychologic: Affect anxious, judgement normal, mood depressed about the arrest of her daughter. EKG: EKG: [] Radiology/Procedures: Radiology/Procedures: [] Heart Score: Risk Factors: Risk Factors: DM, Current or recent (<one month) smoker, HTN, HLP, family history of CAD, obesity. Risk Scores: Score 0 - 3: 2.5% MACE over next 6 weeks - Discharge Home Score 4 - 6: 20.3% MACE over next 6 weeks - Admit for Clinical Observation Score 7 - 10: 72.7% MACE over next 6 weeks - Early Invasive Strategies Course & Med Decision Making: Course & Med Decision Making Pertinent Labs and Imaging studies reviewed. (See chart for details) Patient refusing EKG, chest x-ray, labs or further studies. Requests a trial of a benzodiazepine to relieve her panic attack. Risk and benefits of this clinical approach discussed at length with patient. Patient aware of risk of trial of Ativan 2 mg p.o. will be given. Patient return if any concerns. Patient follow-up with Dr. Simental. Patient return if any concerns. Stay somewhere safe tonight if her daughter gets released from custodial. Impression: 1. Grief 2. Anxiety Reactions [] Dragon Disclaimer: Dragon Disclaimer: This electronic medical record was generated, in whole or in part, using a voice recognition dictation system. Departure Departure: Referrals: CATRACHO SIMENTAL MD (PCP) Dragon Disclaimer This chart was dictated in whole or in part using Voice Recognition software in a busy, high-work load, and often noisy Emergency Department environment. It may contain unintended and wholly unrecognized errors or omissions. Dragon Disclaimer This chart was dictated in whole or in part using Voice Recognition software in a busy, high-work load, and often noisy Emergency Department environment. It may contain unintended and wholly unrecognized errors or omissions. SREEDHAR ZACARIAS MD Apr 05, 2020 19:41
[2020-04-05] MEDS ORDERED: LORazepam 1 MG TABLET PO ONE (20:00)
[2020-04-05 20:05] VITALS: BP 119/62
== END 2020-04-05 20:07 | disposition home or self-care (01) ==
LOC: ER 19:28
DX: F41.9 Anxiety disorder, unspecified (principal); F43.21 Adjustment disorder with depressed mood; M79.7 Fibromyalgia; I10 Essential (primary) hypertension; F17.210 Nicotine dependence, cigarettes, uncomplicated; Z88.1 Allergy status to other antibiotic agents; Z88.8 Allergy status to other drugs, medicaments and biological substances
CPT/HCPCS: 99283

== ENCOUNTER 2020-05-03 17:38 | Emergency (ER) | payer OTHER ==
[~2020-05-03] VITALS: Ht 162.6 cm; Wt 119.0 kg
--- NOTE | 2020-05-03 18:22 | PHYS DOC ---
Past History Past Medical History: Cancer, Hypertension Past Surgical History: Cholecystectomy, , Hysterectomy, Tonsillectomy Smoking: Cigarettes, Less than 1pk/day Alcohol Use: None Drug Use: None General Adult EDM: Chief Complaint: ABSCESS HPI: HPI: Patient is a 40-year-old female coming in for worsening pain from an abscess on the back of her head. Patient states she was given doxycycline 3 weeks ago but it did not improve. Today is opened up and started draining and the pain is radiating down her neck. States she has had a cyst on the back of her head for much of her life but is only recently having problems that getting infected. Has been taking hydrocodone without improvement in pain. States the drainage has been purulent and foul-smelling. Patient states she is unable to turn her head due to the pain in her left neck. Review of Systems: Review of Systems: All other systems within normal limits except for as noted in the HPI Current Medications: Current Meds: Current Medications Medications (Trade) Dose Ordered Sig/Judy Start Time Stop Time Status Last Admin Dose Admin Fentanyl Citrate (Fentanyl 2ml Vial) 75 mcg 1X ONCE 05/03/20 18:15 05/03/20 18:18 DC Allergies: Allergies: Allergies Coded Allergies Type Severity Reaction Last Updated Verified Cephalosporins Allergy Intermediate 05/03/20 Yes cephalexin Allergy Intermediate rash 05/03/20 No prochlorperazine Allergy Intermediate 05/03/20 Yes sargramostim Allergy Intermediate 05/03/20 Yes vancomycin Allergy Intermediate 05/03/20 No Physical Exam: PE: Constitutional: Well developed, well nourished, no acute distress, non-toxic appearance. [] HENT: Normocephalic, atraumatic, bilateral external ears normal, nose normal. [] Approximately 4 Center dimer raised area on the left occiput with opening in the center, surrounding erythema Eyes: PERRLA, conjunctiva normal, no discharge. [] Neck: No rigidity, supple, no stridor. [] Tenderness down left neck Cardiovascular: Regular rate and rhythm, brisk cap refill [] Lungs & Thorax: Non labored symmetric respirations, no tachypnea or respiratory distress [] Abdomen: Soft, nondistended. Skin: Warm, dry, no erythema, no rash. [] Back: Unremarkable Extremities: No deformities, range of motion grossly intact, no lower extremity edema [] Neurologic: Alert and oriented X 3, no focal deficits noted. [] Psychologic: Affect normal, judgement normal, mood normal. [] Current Patient Data: Vital Signs: Vital Signs Date Time Temp Pulse Resp B/P (MAP) Pulse Ox O2 Delivery O2 Flow Rate FiO2 05/03/20 17:49 97.6 89 18 130/73 (92) 97 Room Air EKG: EKG: [] Radiology/Procedures: Radiology/Procedures: Exam: CT neck with contrast INDICATION: Abscess TECHNIQUE: Sequential axial images through the neck obtained following the administration of 72 mL of Isovue-370 IV contrast. Sagittal and coronal reformatted images were reconstructed from the axial data and reviewed. Comparisons: None FINDINGS: Visualized intracranial structures are unremarkable. Globes and orbital contents are normal. Visualized portions of the paranasal sinuses and mastoid air cells are well-pneumatized. Cervical vasculature is patent. Nasopharynx, oropharynx, hypopharynx and larynx are unremarkable. Thyroid and salivary glands are within normal limits. There is a peripherally enhancing fluid collection in the subcutaneous tissues of the left posterior neck measuring approximately 1.9 cm in diameter with a small focus of internal air. There are a few mildly enlarged left posterior neck lymph nodes series 2 image 36. Visualized lung apices are clear. No acute or healed fractures. IMPRESSION: 1. Peripherally enhancing fluid collection in the subcutaneous tissues of the left posterior neck measuring 1.9 cm concerning for abscess. 2. Few mildly enlarged adjacent left posterior neck lymph nodes, likely reactive. [] Impressions: Incision and drainage procedure note. Area cleaned with alcohol and anesthetized with 2% lidocaine with epinephrine. 11 blade scalpel was used to make a cruciate incision. Approximately 1 cc of purulent drainage expressed, multiple loculations decompressed. No packing placed, wound dressed with gauze. Patient tolerated well without complications Heart Score: Risk Factors: Risk Factors: DM, Current or recent (<one month) smoker, HTN, HLP, family history of CAD, obesity. Risk Scores: Score 0 - 3: 2.5% MACE over next 6 weeks - Discharge Home Score 4 - 6: 20.3% MACE over next 6 weeks - Admit for Clinical Observation Score 7 - 10: 72.7% MACE over next 6 weeks - Early Invasive Strategies Course & Med Decision Making: Course & Med Decision Making Pertinent Labs and Imaging studies reviewed. (See chart for details) [] Laly Disclaimer: Dragon Disclaimer: This electronic medical record was generated, in whole or in part, using a voice recognition dictation system. Departure Departure: Impression: Primary Impression: Abscess, occipital Disposition: 01 DC HOME SELF CARE/HOMELESS Condition: STABLE Referrals: CATRACHO SIMENTAL MD (PCP) Patient Instructions: Incision and Drainage, Care After Additional Instructions: Take antibiotics as prescribed, follow-up with your primary care doctor in 2 days for wound check. Scripts Sulfamethoxazole/Trimethoprim (BACTRIM DS TABLET) 1 Each Tablet 1 TAB PO BID for antibiotic for 7 Days, #14 TAB 0 Refills Prov: WENDY VIZCAINO MD 05/03/20 WENDY VIZCAINO MD May 03, 2020 18:22
[2020-05-03] MEDS ORDERED: IOHEXOL 300 MG/ML 75 ML VIAL. IV ONE (18:30)
[2020-05-03 18:38] LABS: BASO # 0.1 x10^3/uL (0.0-0.2); BASO % 1 % (0-3); EOS # 0.5 x10^3/uL (0.0-0.7); EOS % 7 % (0-3); HEMOGLOBIN 13.2 g/dL (12.0-15.5); LYMPH % 38 % (24-48); MEAN CORPUSCULAR HEMOGLOBIN 30 pg (25-35); MEAN CORPUSCULAR HGB CONC 33 g/dL (31-37); MEAN CORPUSCULAR VOLUME 90 fL (79-100); MONO # 0.7 x10^3/uL (0.0-1.1); MONO % 10 % (0-9); NEUT # 3.4 x10^3uL (1.8-7.7); NEUT % 44 % (31-73); PLATELET COUNT 292 x10^3/uL (140-400); RED BLOOD COUNT 4.47 x10^6/uL (3.50-5.40); RED CELL DISTRIBUTION WIDTH 13.5 % (11.5-14.5); WHITE BLOOD COUNT 7.8 x10^3/uL (4.0-11.0)
[2020-05-03] MEDS ORDERED: CONTRAST GIVEN. MC PRN (18:45)
[2020-05-03 18:50] LABS: CALCIUM 9.3 mg/dL (8.5-10.1); CREATININE 0.9 mg/dL (0.6-1.0); POTASSIUM 4.8 mmol/L (3.5-5.1)
[2020-05-03 18:56] LABS: ALBUMIN 3.6 g/dL (3.4-5.0); TOTAL BILIRUBIN 0.2 mg/dL (0.2-1.0); TOTAL PROTEIN 7.2 g/dL (6.4-8.2)
--- NOTE | 2020-05-03 19:46 | RAD ---
Exam: CT neck with contrast INDICATION: Abscess TECHNIQUE: Sequential axial images through the neck obtained following the administration of 72 mL of Isovue-370 IV contrast. Sagittal and coronal reformatted images were reconstructed from the axial da ta and reviewed. Comparisons: None FINDINGS: Visualized intracranial structures are unremarkable. Globes and orbital contents are normal. Visualiz ed portions of the paranasal sinuses and mastoid air cells are well-pneumatized. Cervical vasculature is patent. Nasopharynx, oropharynx, hypopharynx and larynx are unremarkable. Thyroid and salivary glands are within normal limits. There is a peripherally enhancing fluid collection in the subcutaneous tissues of the left posterior neck measuring approximately 1.9 cm in diameter with a small focus of internal air. There are a few m ildly enlarged left posterior neck lymph nodes series 2 image 36. Visualized lung apices are clear. No acute or healed fractures. IMPRESSION: 1. Peripherally enhancing fluid collection in the subcutaneous tissues of the left posterior neck me asuring 1.9 cm concerning for abscess. 2. Few mildly enlarged adjacent left posterior neck lymph nodes, likely reactive. Exposure: One or more of the following in the visualized dose reduction techniques were utilized for this examination: 1. Automated exposure control 2. Adjustment of the MA and/or KV according to patient size 3. Use of iterative of reconstructive technique Electronically signed by: Azael Pink MD (05/03/2020 7:44 PM) [facility]
[2020-05-03] MEDS ORDERED: LIDOCAINE 2%/EPI 1:100,000 20 ML VIAL. ONE (19:57)
[2020-05-03] MEDS ORDERED: LIDOCAINE 1%/EPI 1:100,000 20 ML VIAL. IJ ONE (20:00)
[2020-05-03] MEDS ORDERED: LIDOCAINE/EPI/TETRACAINE TOPICAL GEL 3 ML. TP ONE (20:00)
[2020-05-03] MEDS ORDERED: LIDOCAINE 2%/EPI 1:100,000 20 ML VIAL. IJ ONE (20:15)
[2020-05-03 20:28] VITALS: BP 147/96
[2020-05-03] MEDS ORDERED: SMZ/TMP 800/160MG TABLET. PO ONE (20:30)
[2020-05-03] MEDS ORDERED: SULF1TAB24 PO (20:31)
== END 2020-05-03 21:32 | disposition home or self-care (01) ==
LOC: ER 17:38
DX: L02.811 Cutaneous abscess of head [any part, except face] (principal); I10 Essential (primary) hypertension; F17.210 Nicotine dependence, cigarettes, uncomplicated; Z88.1 Allergy status to other antibiotic agents; Z88.8 Allergy status to other drugs, medicaments and biological substances
CPT/HCPCS: 10060; 36415; 70491; 80053; 85025; 96374; 96376; 99285; J3010; Q9967

== ENCOUNTER 2020-05-29 15:39 | Emergency (ER) | payer OTHER ==
[~2020-05-29] VITALS: Ht 162.6 cm; Wt 119.0 kg
[~2020-05-29 15:39] MED LIST changes: +SULF1TAB24 PO
--- NOTE | 2020-05-29 15:59 | PHYS DOC ---
Past History Past Medical History: Cancer, Hypertension (LENI CHEW APRN) Past Surgical History: Cholecystectomy, , Hysterectomy, Tonsillectomy (LENI CHEW APRN) Smoking: Cigarettes, Less than 1pk/day Alcohol Use: None Drug Use: None (LENI CHEW APRN) Adult General Chief Complaint Chief Complaint: ABDOMINAL PAIN HPI HPI Patient is a 40-year-old female presents to the emergency department reporting indigestion feeling last night, took 4 Tums and was able to sleep overnight, however states when she woke up she was having pain near her bellybutton that she reported a 5/10 on a 1-10 pain scale. Patient states it progressively became worse to a 910/10 1-10 pain scale. Patient states she has taken for hydrocodone tablets today without relief of her pain. Patient reports she has vomited twice noticing food particles, no blood noted in her vomitus. Patient reports she has had 3 loose brown diarrhea stools, denies seeing any blood in her stool. Patient states the pain has now settled to the right lower quadrant. Patient denies any fever or chills at home. Denies chest congestion, nasal congestion, chest pain, shortness of breath. Patient states she is currently nauseated and still experiencing abdominal pain. Denies any constipation. Patient denies any swelling of her extremities, rashes to her skin, visual changes, neck pain or throat pain. Patient denies any other physical complaints or physical concerns. (LENI CHEW APRN) Review of Systems Review of Systems 14 body systems of review of systems have been reviewed. See HPI for pertinent positives and negative responses, otherwise all other systems are negative, nonpertinent or noncontributory. (LENI CHEW GEAR DESIGN ENGINEER) Allergies Allergies Allergies Coded Allergies Type Severity Reaction Last Updated Verified Cephalosporins Allergy Intermediate 05/03/20 Yes cephalexin Allergy Intermediate rash 05/03/20 No prochlorperazine Allergy Intermediate 05/03/20 Yes sargramostim Allergy Intermediate 05/03/20 Yes vancomycin Allergy Intermediate 05/03/20 No (LENI CHEW APRN) Physical Exam Physical Exam Constitutional: Well developed, well nourished, no acute distress, non-toxic appearance. 40-year-old patient holding abdomen during physical exam. HENT: Normocephalic, atraumatic, bilateral external ears normal, oropharynx moist, no oral exudates, nose normal. Oropharynx moist, pink, no infectious process appreciated, no lymphadenopathy of the head or neck appreciated, bilateral TMs within normal limits, no drainage noted from external auditory canals. No trismus, no drooling appreciated. Eyes: PERRLA, EOMI, conjunctiva normal, no discharge. Neck: Normal range of motion, no tenderness, supple, no stridor. No C-spine tenderness, no meningismus signs, no nuchal rigidity appreciated. Cardiovascular:Heart rate regular rhythm, heart sounds S1-S2 auscultation. Lungs & Thorax: Bilateral breath sounds clear to auscultation, no adventitious lung sounds appreciated. Abdomen: Bowel sounds normal, soft, no masses, no pulsatile masses. Round/obese abdomen, normal active bowel sounds auscultation, positive rebound tenderness, positive McBurney's point tenderness, positive straight leg raise, negative Nicole sign, positive psoas sign. No ecchymosis of the abdomen appreciated, no hernias appreciated. Skin: Warm, dry, no erythema, no rash. Back: No tenderness to palpation of the bony structures or musculoskeletal structures of the back. Extremities: No tenderness, no cyanosis, no clubbing, ROM intact, no edema. +2/4 pulses, distal cap refill less than 2 seconds. Neurologic: Alert and oriented X 3, normal motor function, normal sensory function, no focal deficits noted. Psychologic: Affect normal, judgement normal, mood normal. (LENI CHEW APRN) Current Patient Data Lab Results Laboratory Tests Test 05/29/20 16:26 05/29/20 16:30 White Blood Count 10.2 x10^3/uL Red Blood Count 4.35 x10^6/uL Hemoglobin 13.0 g/dL Hematocrit 39.2 % Mean Corpuscular Volume 90 fL Mean Corpuscular Hemoglobin 30 pg Mean Corpuscular Hemoglobin Concent 33 g/dL Red Cell Distribution Width 13.8 % Platelet Count 288 x10^3/uL Neutrophils (%) (Auto) 65 % Lymphocytes (%) (Auto) 26 % Monocytes (%) (Auto) 7 % Eosinophils (%) (Auto) 2 % Basophils (%) (Auto) 1 % Neutrophils # (Auto) 6.6 x10^3uL Lymphocytes # (Auto) 2.6 x10^3/uL Monocytes # (Auto) 0.7 x10^3/uL Eosinophils # (Auto) 0.2 x10^3/uL Basophils # (Auto) 0.1 x10^3/uL Urine Collection Type Unknown Urine Color Yellow Urine Clarity Clear Urine pH 6.5 Urine Specific [place] 1.020 Urine Protein Neg Urine Glucose (UA) Neg mg/dL Urine Ketones (Stick) Neg mg/dL Urine Blood Trace Urine Nitrite Neg Urine Bilirubin Neg Urine Urobilinogen Dipstick 0.2 mg/dL Urine Leukocyte Esterase Neg Urine RBC Rare /HPF Urine WBC 0 /HPF Urine Squamous Epithelial Cells Few /LPF Urine Bacteria 0 /HPF Sodium Level 145 mmol/L Potassium Level 4.0 mmol/L Chloride Level 109 mmol/L Carbon Dioxide Level 27 mmol/L Anion Gap 9 Blood Urea Nitrogen 11 mg/dL Creatinine 0.9 mg/dL Estimated GFR (Cockcroft-Gault) 69.0 BUN/Creatinine Ratio 12 Glucose Level 103 mg/dL Lactic Acid Level 1.0 mmol/L Calcium Level 9.0 mg/dL Total Bilirubin 0.3 mg/dL Aspartate Amino Transf (AST/SGOT) 16 U/L Alanine Aminotransferase (ALT/SGPT) 30 U/L Alkaline Phosphatase 70 U/L Total Protein 7.1 g/dL Albumin 3.4 g/dL Albumin/Globulin Ratio 0.9 Lipase 174 U/L Bedside Urine HCG, Qualitative hcg negative Current Medications Medications (Trade) Dose Ordered Sig/Judy Route PRN Reason Start Time Stop Time Status Last Admin Dose Admin Sodium Chloride 1,000 ml @ 1,000 mls/hr 1X ONCE IV 05/29/20 16:00 05/29/20 16:59 DC 05/29/20 16:24 Morphine Sulfate (Morphine 4mg Syringe) 4 mg 1X ONCE IV 05/29/20 16:00 05/29/20 16:10 DC 05/29/20 16:25 Ondansetron HCl (Zofran) 4 mg 1X ONCE IVP 05/29/20 16:00 05/29/20 16:10 DC 05/29/20 16:24 Iohexol (Omnipaque 300 Mg/ml) 75 ml 1X ONCE IV 05/29/20 16:15 05/29/20 16:16 DC 05/29/20 17:06 Ketorolac Tromethamine (Toradol 30mg Vial) 30 mg 1X ONCE IVP 05/29/20 17:15 05/29/20 17:16 DC 05/29/20 17:09 Ketorolac Tromethamine (Toradol 30mg Vial) 30 mg STK-MED ONCE .ROUTE 05/29/20 17:03 05/29/20 17:03 DC Morphine Sulfate (Morphine 2mg Syringe) 2 mg 1X ONCE IV 05/29/20 18:15 05/29/20 18:16 (LENI CHEW APRN) EKG EKG [] (LENI CHEW APRN) Radiology/Procedures Radiology/Procedures PATIENT: SARAH URENA ACCOUNT: [id number] : 1980 LOCATION: ER AGE: 40 SEX: F EXAM STATUS: REG ER ORD. PHYSICIAN: LENI CHEW APRN REASON: RLQ PAIN Hx: Cholecystectomy Omni 300 75cc PROCEDURE: CT ABD PELV W/ IV CONTRST ONLY CT ABDOMEN+PELVIS W History: Reason: RLQ PAIN Hx: Cholecystectomy Omni 300 75cc / Spl. Instructions: / History: Technique: After the administration of intravenous contrast, CT imaging was performed of the abdomen and pelvis. Multiplanar images are reviewed. Exposure: One or more of the following individualized dose reduction techniques were utilized for this examination: 1. Automated exposure control 2. Adjustment of the mA and/or kV according to patient size 3. Use of iterative reconstruction technique. Comparison: February 18, 2019 Findings: Lower chest: Mild linear bilateral atelectasis. Lobulated cyst adjacent to the right heart border measures 4.5 x 3.7 cm, unchanged and most likely pericardial cyst Abdomen and pelvis: The liver, adrenal glands, and pancreas are unremarkable. Prior cholecystectomy. No biliary ductal dilatation. Patent portal veins. Mild splenomegaly, unchanged. Left renal cyst measures 3.5 cm. No hydronephrosis. No renal calculi. Decompressed urinary bladder. Normal appendix. No evidence of bowel obstruction. No pathologic ly mphadenopathy. No ascites. Prior hysterectomy. Bones: No pathologic osseous lesions. Impression: 1. No acute abdominal or pelvic pathology. Electronically signed by: Oren Newman DO (05/29/2020 5:32 PM) [facility] DICTATED AND SIGNED BY: OREN NEWMAN DO DATE: 05/29/20 172 (LENI CHEW APRN) Heart Score C/O Chest Pain: No Risk Factors: Risk Factors: DM, Current or recent (<one month) smoker, HTN, HLP, family history of CAD, obesity. Risk Scores: Risk Factors: DM, Current or recent (<one month) smoker, HTN, HLP, family history of CAD, obesity. (LENI CHEW APRN) Course & Med Decision Making Course & Med Decision Making Pertinent Labs and Imaging studies reviewed. (See chart for details) 40-year-old female, vital signs reviewed, presents to the emergency department concerning right lower quadrant pain. Physical examination concerning for possible abdominal acute process, will start abdominal work-up in ED. Patient's labs unremarkable, the patient's urine was not infected. Pending CT abdomen pelvis at this time. Patient was given 2 mg of morphine IV initially, reports pain from 10/10 down to 7/10. Patient states pain is returning, will try IV Toradol. On reexamination of the patient, patient reports a 7/10 pain in her abdomen. Will give 2 mg of morphine. Discussed findings with patient, pain most likely an abdominal musculoskeletal process. Serum labs and CT of abdomen and pelvis were unremarkable for acute process. Patient gave verbal understanding of discussed findings. Also discussed with patient to follow-up with primary care physician soon regarding ongoing abdominal pain. Patient had known vomiting episodes or diarrhea episodes while in the emergency department. Patient gave verbal understanding of discharge home instructions, follow-up with PCP soon, return to ER precautions and concerns, discharged home without incident. (LENI CHEW APRN) Course & Med Decision Making I oversaw on the above date of service of this patient and discussed the care with the COACH DRIVER. Patient is ambulatory with a nonacute abdomen, no obvious, emergent nor surgical causes of her pain identified this visit. I agree with the findings, plan of care, and disposition as documented. Electronically signed, Noah Chavez DO (NOAH CHAVEZ DO) Laly Disclaimer Dragon Disclaimer This electronic medical record was generated, in whole or in part, using a voice recognition dictation system. (LENI CHEW APRN) Departure Departure: Impression: Primary Impression: Abdominal pain of unknown etiology Disposition: 01 DC HOME SELF CARE/HOMELESS Condition: STABLE Referrals: KAMILLE,CATRACHO L MD (PCP) Patient Instructions: Abdominal Pain Additional Instructions: There was an extensive investigation of your abdominal pain performed in the ER today. There were no acute findings or concerning findings of infectious process or any problems requiring admission to the hospital or immediate surgery. As we discussed this may be a musculoskeletal type pain. Please fo llow-up with your doctor on Sunday for ongoing pain control. Return to the emergency department for worsening symptoms or other concerns. EMERGENCY DEPARTMENT GENERAL DISCHARGE INSTRUCTIONS Thank you for coming to [facility] (ED) today and trusting us with you care. We trust that you had a positivie experience in our Emergency Department. If you wish to speak to the department management, you may call the director at [phone]. YOUR FOLLOW UP INSTRUCTIONS ARE FOLLOWS: 1. Do you have a private Doctor? If you do not have a private doctor, please ask for a resource list of physicians or clinics that may be able to assist you with follow up care. 2. The Emergency Physician has interpreted your x-rays. The X-Ray specialist will also review them. If there is a change in the findings, you will be notified in 48 hours when at all possible. 3. A lab test or culture has been done, your results will be reviewed and you will be notified if you need a change in treatment. ADDITIONAL INSTRUCTIONS AND INFORMATION: 1. Your care today has been supervised by a physician who is specially trained in emergency care. Many problems require more than one evaluation for a complete diagnosis and treatment. We recommend that you schedule your follow up appointment as recommended to ensure complete treatment of you illness or injury. If you are unable to obtain follow up care and continue to have a problem, or if your condition worsens, we recommend that you return to the ED. 2. We are not able to safely determine your condition over the phone nor are we able to give sound medical advice over the phone. For these safety reasons, if you call for medical advice we will ask you to come to the ED for further evaluation. 3. If you have any questions regarding these discharge instructions please call the ED at [phone]. SAFETY INFORMATION: In the interest of safety, wellness, and injury prevention; we encourage you to wear your sealbelt, if you smoke; quite smoking, and we encourage family to use a protective helmet for bicycling and other sporting events that present an increased risk for head injury. IF YOUR SYMPTOMS WORSEN OR NEW SYMPTOMS DEVELOP, OR YOU HAVE CONCERNS ABOUT YOUR CONDITION; OR IF YOUR CONDITION WORSENS WHILE YOU ARE WAITING FOR YOUR FOLLOW UP APPOINTMENT; EITHER CONTACT YOUR PRIMARY CARE DOCTOR, THE PHYSICIAN WHOSE NAME AND NUMBER YOU WERE GIVEN, OR RETURN TO THE ED IMMEDIATELY. LENI CHEW APRN May 29, 2020 15:59 NOAH CHAVEZ DO May 30, 2020 06:19
[2020-05-29 16:00] VITALS: BP 123/79
[2020-05-29] MEDS ORDERED: IV NORMAL SALINE 1,000ML 1,000 ML IV ONE (16:00)
[2020-05-29] MEDS ORDERED: ONDANSETRON PF 4 MG/2 ML VIAL. IVP ONE (16:00)
[2020-05-29] MEDS ORDERED: MORPHINE SULFATE 4 MG/ML DISP.SYRIN. IV ONE (16:00)
[2020-05-29] MEDS ORDERED: IOHEXOL 300 MG/ML 75 ML VIAL. IV ONE (16:15)
[2020-05-29 16:41] LABS: BASO # 0.1 x10^3/uL (0.0-0.2); BASO % 1 % (0-3); EOS # 0.2 x10^3/uL (0.0-0.7); EOS % 2 % (0-3); HEMATOCRIT 39.2 % (36.0-47.0); LYMPH # 2.6 x10^3/uL (1.0-4.8); LYMPH % 26 % (24-48); MEAN CORPUSCULAR HEMOGLOBIN 30 pg (25-35); MEAN CORPUSCULAR HGB CONC 33 g/dL (31-37); MEAN CORPUSCULAR VOLUME 90 fL (79-100); MONO # 0.7 x10^3/uL (0.0-1.1); MONO % 7 % (0-9); NEUT # 6.6 x10^3uL (1.8-7.7); NEUT % 65 % (31-73); PLATELET COUNT 288 x10^3/uL (140-400); RED BLOOD COUNT 4.35 x10^6/uL (3.50-5.40); RED CELL DISTRIBUTION WIDTH 13.8 % (11.5-14.5); WHITE BLOOD COUNT 10.2 x10^3/uL (4.0-11.0)
[2020-05-29 16:50] LABS: CREATININE 0.9 mg/dL (0.6-1.0)
[2020-05-29 16:52] LABS: BACTERIA,URINE 0 /HPF (0-FEW); BILIRUBIN,URINE NEG (NEG); CLARITY,URINE CLEAR; COLOR,URINE YELLOW; GLUCOSE,URINE NEG (NEG); NITRITE,URINE NEG (NEG); RBC,URINE RARE /HPF (0-2); SQUAMOUS EPITHELIAL CELL,UR FEW /LPF; UROBILINOGEN,URINE 0.2 mg/dL (0.2 mg/dL); WBC,URINE 0 /HPF (0-4)
[2020-05-29 16:56] LABS: ALBUMIN 3.4 g/dL (3.4-5.0); ALBUMIN/GLOBULIN RATIO 0.9 (1.0-1.7); TOTAL BILIRUBIN 0.3 mg/dL (0.2-1.0); TOTAL PROTEIN 7.1 g/dL (6.4-8.2)
[2020-05-29] MEDS ORDERED: KETOROLAC 30 MG/ML VIAL. ONE (17:03)
[2020-05-29] MEDS ORDERED: KETOROLAC 30 MG/ML VIAL. IVP ONE (17:15)
--- NOTE | 2020-05-29 17:35 | RAD ---
CT ABDOMEN+PELVIS W History: Reason: RLQ PAIN Hx: Cholecystectomy Omni 300 75cc / Spl. Instructions: / History: Technique: After the administration of intravenous contrast, CT imaging was performed of the abdomen and pelvis. Multiplanar images are reviewed. Exposure: One or more of the following individualized dose reduction techniques were utilized for thi s examination: 1. Automated exposure control 2. Adjustment of the mA and/or kV according to patient size 3. Use of iterative reconstruction technique. Comparison: February 18, 2019 Findings: Lower chest: Mild linear bilateral atelectasis. Lobulated cyst adjacent to the right heart border blayne sures 4.5 x 3.7 cm, unchanged and most likely pericardial cyst Abdomen and pelvis: The liver, adrenal glands, and pancreas are unremarkable. Prior cholecystectomy. No biliary ductal dilatation. Patent portal veins. Mild splenomegaly, unchanged. Left renal cyst measures 3.5 cm. No hydronephrosis. No renal calculi. Decompressed urinary bladder. Normal appendix. No evidence of bowel obstruction. No pathologic lymphadenopathy. No ascites. Prior h ysterectomy. Bones: No pathologic osseous lesions. Impression: 1. No acute abdominal or pelvic pathology. Electronically signed by: Oren Newman DO (05/29/2020 5:32 PM) [facility]
[2020-05-29] MEDS ORDERED: MORPHINE SULFATE 2 MG/ML DISP.SYRIN. IV ONE (18:15)
== END 2020-05-29 18:09 | disposition home or self-care (01) ==
LOC: ER 15:39
DX: R10.31 Right lower quadrant pain (principal); R19.7 Diarrhea, unspecified; R11.10 Vomiting, unspecified; I10 Essential (primary) hypertension; F17.210 Nicotine dependence, cigarettes, uncomplicated; Z90.49 Acquired absence of other specified parts of digestive tract; Z90.710 Acquired absence of both cervix and uterus; Z98.890 Other specified postprocedural states; Z88.1 Allergy status to other antibiotic agents; Z88.8 Allergy status to other drugs, medicaments and biological substances
CPT/HCPCS: 36415; 74177; 80053; 81001; 81025; 83605; 83690; 85025; 96361; 96374; 96375; 99285; J1885; J2270; J2405; J7030; Q9967

== ENCOUNTER 2020-06-25 14:23 | Emergency (ER) | payer OTHER ==
[~2020-06-25] VITALS: Ht 162.6 cm; Wt 119.0 kg
[2020-06-25 14:43] VITALS: BP 140/74
[2020-06-25 14:57] LABS: BASO # 0.1 x10^3/uL (0.0-0.2); BASO % 1 % (0-3); EOS # 0.3 x10^3/uL (0.0-0.7); EOS % 2 % (0-3); HEMATOCRIT 41.3 % (36.0-47.0); HEMOGLOBIN 13.9 g/dL (12.0-15.5); LYMPH # 2.5 x10^3/uL (1.0-4.8); LYMPH % 20 % (24-48); MEAN CORPUSCULAR HEMOGLOBIN 30 pg (25-35); MEAN CORPUSCULAR HGB CONC 34 g/dL (31-37); MEAN CORPUSCULAR VOLUME 89 fL (79-100); MONO # 0.8 x10^3/uL (0.0-1.1); MONO % 7 % (0-9); NEUT # 8.6 x10^3uL (1.8-7.7); NEUT % 70 % (31-73); PLATELET COUNT 257 x10^3/uL (140-400); RED BLOOD COUNT 4.64 x10^6/uL (3.50-5.40); RED CELL DISTRIBUTION WIDTH 13.2 % (11.5-14.5); WHITE BLOOD COUNT 12.3 x10^3/uL (4.0-11.0)
--- NOTE | 2020-06-25 15:16 | RAD ---
XR CHEST 1V History: Reason: cp / Spl. Instructions: / History: Comparison: January 18, 2020 Findings: No consolidation or pleural effusion. Normal heart size. No pneumothorax. Impression: 1. No acute cardiopulmonary process. Electronically signed by: Oren Newman DO (06/25/2020 3:14 PM) [id number]
--- NOTE | 2020-06-25 15:20 | EKG ---
[address] [address] Test Date: 2020-06-25 Test Time: 14:28:39 Pat Name: SARAH URENA Department: Room: Gender: F Delivery Clerk: NICKI : 1980 Requested By: BC LOVETT Order Number: [id number] Reading MD: Measurements Intervals [place] Rate: 73 P: 30 FL: 168 QRS: -26 QRSD: 96 T: 39 QT: 402 QTc: 447 Interpretive Statements SINUS RHYTHM LEFTWARD AXIS QRS(T) CONTOUR ABNORMALITY CONSIDER INFERIOR INFARCT POSSIBLY ABNORMAL ECG RI6.02 No previous ECG available for comparison
[2020-06-25 15:31] LABS: CALCIUM 9.1 mg/dL (8.5-10.1); CREATININE 0.9 mg/dL (0.6-1.0); POTASSIUM 3.9 mmol/L (3.5-5.1)
[2020-06-25 15:37] LABS: ALBUMIN 3.7 g/dL (3.4-5.0); TOTAL BILIRUBIN 0.4 mg/dL (0.2-1.0); TOTAL PROTEIN 7.4 g/dL (6.4-8.2)
--- NOTE | 2020-06-25 16:15 | PHYS DOC ---
Past History Past Medical History: No Pertinent History, Cancer, Hypertension Past Surgical History: Cancer Surgery, Cholecystectomy, , Hysterectomy, Tonsillectomy Smoking: Cigarettes, Less than 1pk/day Alcohol Use: None Drug Use: None General Adult EDM: Chief Complaint: CHEST PAIN HPI: HPI: Patient is a 40-year-old female who presents with upper burning epigastric pain. Patient states it has been burning since yesterday and radiates into her shoulders. Patient denies nausea/vomiting. Patient denies fever. Patient denies recent illness. Patient reports pain is worse with deep breath and is reproducible when she pushes on the middle of her chest. Patient does report some shortness of breath. History of hypertension Review of Systems: Review of Systems: Constitutional: Denies fever or chills Eyes: Denies change in visual acuity HENT: Denies nasal congestion or sore throat Respiratory: Denies cough, reports shortness of breath Cardiovascular: Reports epigastric burning pain or edema GI: Denies abdominal pain, nausea, vomiting, bloody stools or diarrhea : Denies dysuria Musculoskeletal: Denies back pain or joint pain Integument: Denies rash Neurologic: Denies headache, focal weakness or sensory changes Endocrine: Denies polyuria or polydipsia Lymphatic: Denies swollen glands Psychiatric: Denies depression or anxiety Allergies: Allergies: Allergies Coded Allergies Type Severity Reaction Last Updated Verified Cephalosporins Allergy Intermediate 05/03/20 Yes cephalexin Allergy Intermediate rash 05/03/20 No prochlorperazine Allergy Intermediate 05/03/20 Yes sargramostim Allergy Intermediate 05/03/20 Yes vancomycin Allergy Intermediate 05/03/20 No Physical Exam: PE: Constitutional: Well developed, well nourished, no acute distress, non-toxic ap pearance. [] HENT: Normocephalic, atraumatic, bilateral external ears normal, oropharynx moist, no oral exudates, nose normal. [] Eyes: PERRLA, EOMI, conjunctiva normal, no discharge. [] Neck: Normal range of motion, no tenderness, supple, no stridor. [] Cardiovascular:Heart rate regular rhythm, no murmur [] Lungs & Thorax: Bilateral breath sounds clear to auscultation [] Abdomen: Bowel sounds normal, soft, no tenderness, no masses, no pulsatile masses. [] Skin: Warm, dry, no erythema, no rash. [] Back: No tenderness, no CVA tenderness. [] Extremities: No tenderness, no cyanosis, no clubbing, ROM intact, no edema. [] Neurologic: Alert and oriented X 3, normal motor function, normal sensory function, no focal deficits noted. [] Psychologic: Affect normal, judgement normal, mood normal. [] Current Patient Data: Labs: Laboratory Tests Test 06/25/20 14:33 White Blood Count 12.3 x10^3/uL (4.0-11.0) H Red Blood Count 4.64 x10^6/uL (3.50-5.40) Hemoglobin 13.9 g/dL (12.0-15.5) Hematocrit 41.3 % (36.0-47.0) Mean Corpuscular Volume 89 fL (79-100) Mean Corpuscular Hemoglobin 30 pg (25-35) Mean Corpuscular Hemoglobin Concent 34 g/dL (31-37) Red Cell Distribution Width 13.2 % (11.5-14.5) Platelet Count 257 x10^3/uL (140-400) Neutrophils (%) (Auto) 70 % (31-73) Lymphocytes (%) (Auto) 20 % (24-48) L Monocytes (%) (Auto) 7 % (0-9) Eosinophils (%) (Auto) 2 % (0-3) Basophils (%) (Auto) 1 % (0-3) Neutrophils # (Auto) 8.6 x10^3uL (1.8-7.7) H Lymphocytes # (Auto) 2.5 x10^3/uL (1.0-4.8) Monocytes # (Auto) 0.8 x10^3/uL (0.0-1.1) Eosinophils # (Auto) 0.3 x10^3/uL (0.0-0.7) Basophils # (Auto) 0.1 x10^3/uL (0.0-0.2) D-Dimer (Alexia) < 0.19 mg/L (0.00-0.50) Sodium Level 140 mmol/L (136-145) Potassium Level 3.9 mmol/L (3.5-5.1) Chloride Level 104 mmol/L (98-107) Carbon Dioxide Level 29 mmol/L (21-32) Anion Gap 7 (6-14) Blood Urea Nitrogen 10 mg/dL (7-20) Creatinine 0.9 mg/dL (0.6-1.0) Estimated GFR (Cockcroft-Gault) 69.0 BUN/Creatinine Ratio 11 (6-20) Glucose Level 106 mg/dL (70-99) H Calcium Level 9.1 mg/dL (8.5-10.1) Total Bilirubin 0.4 mg/dL (0.2-1.0) Aspartate Amino Transferase (AST) 14 U/L (15-37) L Alanine Aminotransferase (ALT) 28 U/L (14-59) Alkaline Phosphatase 76 U/L (46-116) Troponin I Quantitative < 0.017 ng/mL (0-0.055) Total Protein 7.4 g/dL (6.4-8.2) Albumin 3.7 g/dL (3.4-5.0) Albumin/Globulin Ratio 1.0 (1.0-1.7) Vital Signs: Vital Signs Date Time Temp Pulse Resp B/P (MAP) Pulse Ox O2 Delivery O2 Flow Rate FiO2 06/25/20 14:43 98.1 74 20 140/74 (96) 99 EKG: EKG: Sinus rhythm. Heart rate 73 bpm. [] Radiology/Procedures: Radiology/Procedures: []XR CHEST 1V History: Reason: cp / Spl. Instructions: / History: Comparison: January 18, 2020 Findings: No consolidation or pleural effusion. Normal heart size. No pneumothorax. Impression: 1. No acute cardiopulmonary process. Electronically signed by: Oren Newman DO (06/25/2020 3:14 PM) [id number] Heart Score: C/O Chest Pain: Yes HEART Score for Chest Pain: HEART Score for Chest Pain Response (Comments) Value History Slighlty/Non-Suspicious 0 ECG Normal 0 Age < 45 0 Risk Factors 1 or 2 Risk Factors 1 Troponin < Normal Limit 0 Total 1 Risk Factors: Risk Factors: DM, Current or recent (<one month) smoker, HTN, HLP, family history of CAD, obesity. Risk Scores: Score 0 - 3: 2.5% MACE over next 6 weeks - Discharge Home Score 4 - 6: 20.3% MACE over next 6 weeks - Admit for Clinical Observation Score 7 - 10: 72.7% MACE over next 6 weeks - Early Invasive Strategies Course & Med Decision Making: Course & Med Decision Making Pertinent Labs and Imaging studies reviewed. (See chart for details) [] Patient is being seen for burning epigastric pain that radiates into her shoulders. Patient denies taking anything at home for the pain. GI cocktail ordered. Patient is denying nausea or recent illness. Troponin is negative. Heart score of 1. Chest x-ray is negative for any acute abnormalities. D-dimer ordered to rule out PE due to reports of shortness of breath. EKG shows sinus rhythm, heart rate 73 bpm. Patient states that GI cocktail improved pain. Patient states "I was moving something yesterday may be pulled a muscle". Patient still reporting pain requesting pain medication. Morphine given for pain control. Chest x-ray is negative for any acute abnormalities. D-dimer is negative. Troponin is negative. All other lab is unremarkable. Patient is hemodynamically stable able to ambulate on her own. Instructed patient to return emergency room with worsening symptoms or concerns. Otherwise can follow-up with PCP on Sunday and take ibuprofen and Tylenol for discomfort. Patient agrees to this plan.Patient is likely has chest wall pain, and pulling a muscle. Pain is reproducible on palpitation. Dragon Disclaimer: Dragon Disclaimer: This electronic medical record was generated, in whole or in part, using a voice recognition dictation system. Departure Departure: Impression: Primary Impression: Chest wall pain Additional Impression: GERD (gastroesophageal reflux disease) Qualified Codes: K21.9 - Gastro-esophageal reflux disease without esophagitis Disposition: HOME / SELF CARE / HOMELESS Condition: STABLE Referrals: CATRACHO SIMENTAL MD (PCP) Patient Instructions: Chest Wall Pain, [id number] Additional Instructions: You were seen in emergency room today for epigastric, burning pain. You were given a GI cocktail which improved your pain. Your chest x-ray was negative for acute abnormalities. All of your lab work was unremarkable. Your troponin was also negative. You most likely have chest wall pain after pulling a muscle. You can take ibuprofen and Tylenol at home for discomfort. Please return emergency room with worsening symptoms or concerns. EMERGENCY DEPARTMENT GENERAL DISCHARGE INSTRUCTIONS Thank you for coming to [facility] (ED) today and trusting us with you care. We trust that you had a positivie experience in our Emergency Department. If you wish to speak to the department management, you may call the director at [phone]. YOUR FOLLOW UP INSTRUCTIONS ARE FOLLOWS: 1. Do you have a private Doctor? If you do not have a private doctor, please ask for a resource list of physicians or clinics that may be able to assist you with follow up care. 2. The Emergency Physician has interpreted your x-rays. The X-Ray specialist will also review them. If there is a change in the findings, you will be notified in 48 hours when at all possible. 3. A lab test or culture has been done, your results will be reviewed and you will be notified if you need a change in treatment. ADDITIONAL INSTRUCTIONS AND INFORMATION: 1. Your care today has been supervised by a physician who is specially trained in emergency care. Many problems require more than one evaluation for a complete diagnosis and treatment. We recommend that you schedule your follow up appointment as recommended to ensure complete treatment of you illness or injury. If you are unable to obtain follow up care and continue to have a problem, or if your condition worsens, we recommend that you return to the ED. 2. We are not able to safely determine your condition over the phone nor are we able to give sound medical advice over the phone. For these safety reasons, if you call for medical advice we will ask you to come to the ED for further evaluation. 3. If you have any questions regarding these discharge instructions please call the ED at [phone]. SAFETY INFORMATION: In the interest of safety, wellness, and injury prevention; we encourage you to wear your sealbelt, if you smoke; quite smoking, and we encourage family to use a protective helmet for bicycling and other sporting events that present an increased risk for head injury. IF YOUR SYMPTOMS WORSEN OR NEW SYMPTOMS DEVELOP, OR YOU HAVE CONCERNS ABOUT YOUR CONDITION; OR IF YOUR CONDITION WORSENS WHILE YOU ARE WAITING FOR YOUR FOLLOW UP APPOINTMENT; EITHER CONTACT YOUR PRIMARY CARE DOCTOR, THE PHYSICIAN WHOSE NAME AND NUMBER YOU WERE GIVEN, OR RETURN TO THE ED IMMEDIATELY. BC LOVETT APRN Jun 25, 2020 16:15
[2020-06-25] MEDS ORDERED: LIDO:MAALOX 1:1 20 ML SINGLE DOSE. PO ONE (16:30)
[2020-06-25 16:50] LABS: BACTERIA,URINE 0 /HPF (0-FEW); BILIRUBIN,URINE NEG (NEG); CLARITY,URINE CLEAR; COLOR,URINE YELLOW; GLUCOSE,URINE NEG (NEG); NITRITE,URINE NEG (NEG); RBC,URINE 0 /HPF (0-2); SQUAMOUS EPITHELIAL CELL,UR MOD /LPF; UROBILINOGEN,URINE 0.2 mg/dL (0.2 mg/dL); WBC,URINE 0 /HPF (0-4)
[2020-06-25] MEDS ORDERED: MORPHINE SULFATE 4 MG/ML DISP.SYRIN. ONE (17:18)
[2020-06-25] MEDS ORDERED: MORPHINE SULFATE 4 MG/ML DISP.SYRIN. IV ONE (17:30)
== END 2020-06-25 17:44 | disposition home or self-care (01) ==
LOC: ER 14:23
DX: K21.9 Gastro-esophageal reflux disease without esophagitis (principal); R07.89 Other chest pain; I10 Essential (primary) hypertension; F17.210 Nicotine dependence, cigarettes, uncomplicated; Z90.49 Acquired absence of other specified parts of digestive tract; Z90.710 Acquired absence of both cervix and uterus; Z88.1 Allergy status to other antibiotic agents; Z88.8 Allergy status to other drugs, medicaments and biological substances
CPT/HCPCS: 36415; 71045; 80053; 81001; 84484; 85025; 85379; 93005; 96374; 99285; J2270

== ENCOUNTER 2020-07-03 11:20 | Emergency (ER) | payer OTHER ==
[~2020-07-03] VITALS: Ht 162.6 cm; Wt 119.0 kg
[2020-07-03 11:20] VITALS: BP 115/76
[2020-07-03] MEDS ORDERED: KETOROLAC 60 MG/2 ML VIAL. IM ONE (12:15)
[2020-07-03] MEDS ORDERED: GABAPENTIN 100 MG CAPSULE. PO ONE (12:15)
[2020-07-03] MEDS ORDERED: LIDOCAINE (700MG/PATCH) PATCH. TD SCH (12:30)
[2020-07-03] MEDS ORDERED: METHOCARBAMOL 500 MG TABLET PO SCH (12:30)
--- NOTE | 2020-07-03 12:39 | RAD ---
PQRS Compliance Statement: One or more of the following individualized dose reduction techniques were utilized for this examinat ion: 1. Automated exposure control 2. Adjustment of the mA and/or kV according to patient size 3. Use of iterative reconstruction technique CT LUMBAR SPINE WO Clinical Indication: Reason: sudden lower back pain Comparison: CT abdomen and pelvis with contrast May 29, 2020. TECHNIQUE: Helical CT imaging of the lumbar spine is performed without IV contrast. Findings: There is no acute compression fracture or malalignment of the lumbar spine. There is no significant d isc space narrowing. There is minimal degenerative endplate spurring. The sacroiliac joints are symme tric. No high-grade central canal stenosis is identified. There is mild bilateral neural foraminal na rrowing L5/S1. The other neural foramina are adequate. The lung bases are clear. Cholecystectomy. Left renal cyst does not require follow-up. No hydronephro sis. The visualized appendix is normal. IMPRESSION: No acute fracture or malalignment. Electronically signed by: Urban Bryant MD (07/03/2020 12:37 PM) [id number]
--- NOTE | 2020-07-03 12:46 | PHYS DOC ---
Past History Past Medical History: Cancer, Hypertension Past Surgical History: Cancer Surgery, Cholecystectomy, , Hysterectomy, Tonsillectomy Smoking: Cigarettes, Less than 1pk/day Alcohol Use: Occasionally Drug Use: None Adult General Chief Complaint Chief Complaint: BACK PAIN OR INJURY HPI HPI Patient is a 40-year-old female who presents to the emergency room complaining of sudden onset lower back pain. Patient states that she was reaching down in the freezer when she suddenly felt this sharp pain with radiation into her right leg. She states she has never had pain like this before. She denies any change with bowel or bladder. She states that walking is painful. She denies any kind of numbness. She denies any kind of fevers or chills. She denies any significant trauma. Review of Systems Review of Systems Complete ROS is negative unless otherwise documented in HPI Current Medications Current Medications Current Medications Medications (Trade) Dose Ordered Sig/Judy Start Time Stop Time Status Last Admin Dose Admin Gabapentin (Neurontin) 100 mg 1X ONCE 07/03/20 12:15 07/03/20 12:17 DC 07/03/20 12:26 100 MG Ketorolac Tromethamine (Toradol Im) 60 mg 1X ONCE 07/03/20 12:15 07/03/20 12:17 DC 07/03/20 12:26 60 MG Lidocaine (Lidoderm) 1 patch DAILY 07/03/20 12:30 07/03/20 12:26 1 PATCH Methocarbamol (Robaxin) 500 mg 1X 07/03/20 12:30 Miscellaneous (Lidoderm Patch Removal) 1 ea QHS 07/03/20 21:00 Allergies Allergies Allergies Coded Allergies Type Severity Reaction Last Updated Verified Cephalosporins Allergy Intermediate 05/03/20 Yes cephalexin Allergy Intermediate rash 05/03/20 No prochlorperazine Allergy Intermediate 05/03/20 Yes sargramostim Allergy Intermediate 05/03/20 Yes vancomycin Allergy Intermediate 05/03/20 No Physical Exam Physical Exam General: Awake, alert, NAD. Well Nourished, well hydrated. Cooperative HEENT: Atraumatic, EOMI, PERRL, airway patent, moist oral mucosa Neck: Supple, trachea midline Respiratory: CTA bilaterally, normal effort, no wheezing/crackles CV: RRR, no murmur, cap refill <2 GI: Soft, nondistended, nontender, no masses MSK: No obvious deformities Skin: Warm, dry, intact Neuro: A&O x3, speech NL, sensory and motor grossly intact, no focal deficits, normal gait Psych: Normal affect, normal mood, not suicidal or homicidal Current Patient Data Vital Signs Vital Signs Date Time Temp Pulse Resp B/P (MAP) Pulse Ox O2 Delivery O2 Flow Rate FiO2 07/03/20 11:20 98.1 92 22 115/76 (89) 99 Room Air EKG EKG [] Radiology/Procedures Radiology/Procedures [] Heart Score C/O Chest Pain: N/A Risk Factors: Risk Factors: DM, Current or recent (<one month) smoker, HTN, HLP, family history of CAD, obesity. Risk Scores: Risk Factors: DM, Current or recent (<one month) smoker, HTN, HLP, family history of CAD, obesity. Course & Med Decision Making Course & Med Decision Making Pertinent Labs and Imaging studies reviewed. (See chart for details) Patient is a 40-year-old female who presents to the Emergency room with non- traumatic back pain. Patient denies bowel incontinence, urinary retention, fever, numbness, weakness. On exam, patient does not have a neurologic deficits, saddle anesthesia, gait difficulty, signs of trauma, or wounds near area of pain. Patient does not have a history of cancer or prolonged steroid use. At this time, patient does not have any signs, symptoms, or risk factors of emergent causes of back pain making cauda equina, spinal abscess, transverse myelitis, fractures, and other causes of emergent back pain highly unlikely. At this time, patient does not need any further work up for their back pain and will be treated symptomatically. Patient's test results and vitals while in the ED were fully reviewed and discussed with the patient. Patient is stable and at this time does not need admission to the hospital. We have discussed strict return precautions and the importance of following up with their Primary Care Physician. Patient stated understanding and was given an opportunity to ask any questions. Patient is in agreement with plan. Dragon Disclaimer Dragon Disclaimer This electronic medical record was generated, in whole or in part, using a voice recognition dictation system. Departure Departure: Impression: Primary Impression: Back pain Disposition: HOME / SELF CARE / HOMELESS Condition: STABLE Referrals: CATRACHO SIMENTAL MD (PCP) Patient Instructions: Back Pain, Adult MAHI SCHMITZ MD Jul 03, 2020 12:46
[2020-07-03] MEDS ORDERED: PATCH REMOVAL. MC SCH (21:00)
== END 2020-07-03 12:58 | disposition home or self-care (01) ==
LOC: ER 11:20
DX: M54.5 Low back pain (principal); I10 Essential (primary) hypertension; F17.210 Nicotine dependence, cigarettes, uncomplicated; Z90.49 Acquired absence of other specified parts of digestive tract; Z98.890 Other specified postprocedural states; Z90.710 Acquired absence of both cervix and uterus; Z88.1 Allergy status to other antibiotic agents; Z88.8 Allergy status to other drugs, medicaments and biological substances
CPT/HCPCS: 72131; 96372; 99284; J1885

== ENCOUNTER 2020-08-01 12:42 | Emergency (ER) | payer OTHER ==
[~2020-08-01] VITALS: Ht 162.6 cm; Wt 104.5 kg
[2020-08-01 12:56] VITALS: BP 157/95
[2020-08-01] MEDS ORDERED: HYDROmorphone PF 1 MG/ML DISP.SYRIN IM ONE (13:15)
[2020-08-01] MEDS ORDERED: methylPREDNISolone ACETATE 80 MG/ML VIAL. IM ONE (13:15)
--- NOTE | 2020-08-01 13:36 | PHYS DOC ---
Past History Past Medical History: Hypertension Past Surgical History: Other Smoking: Cigarettes, Less than 1pk/day Alcohol Use: None Drug Use: None Adult General Chief Complaint Chief Complaint: BACK PAIN - NO INJURY HPI HPI Patient is a 40-year-old female presents to the emergency department complaining of a sudden onset right-sided low back pain that she describes as her sciatica flareup after she bent over to pick something up off the floor this morning at approximately 8:30 AM. Patient states she has a history of chronic low back pains in which she takes orphenadrine 100 mg, 5 mg hydrocodone, 500 mg nabumetone, 800 mg Motrin, she states she took these medications at 10 AM this morning without relief of her pain. Patient reports a 10/10 pain on a 1-10 pain scale. Patient states she applied a lidocaine patch to the painful area of her right low back. Patient denies loss of bowel or loss of bladder. Patient states the pain radiates down to her bed right buttocks area. Patient denies any numbness or tingling to her buttocks lower extremities or periarea. Patient reports her last menstrual cycle was 18 years ago. Patient denies any other physical complaints or physical concerns. Review of Systems Review of Systems 14 body systems of review of systems have been reviewed. See HPI for pertinent positives and negative responses, otherwise all other systems are negative, nonpertinent or noncontributory. Current Medications Current Medications Current Medications Medications (Trade) Dose Ordered Sig/Judy Start Time Stop Time Status Last Admin Dose Admin Hydromorphone HCl (Dilaudid) 1 mg 1X ONCE 08/01/20 13:15 08/01/20 13:16 DC 08/01/20 13:23 1 MG Methylprednisolone Acetate (DEPO-Medrol IM) 80 mg 1X ONCE 08/01/20 13:15 08/01/20 13:16 DC 08/01/20 13:22 80 MG Allergies Allergies Allergies Coded Allergies Type Severity Reaction Last Updated Verified Cephalosporins Allergy Intermediate 05/03/20 Yes cephalexin Allergy Intermediate rash 05/03/20 No prochlorperazine Allergy Intermediate 05/03/20 Yes sargramostim Allergy Intermediate 05/03/20 Yes vancomycin Allergy Intermediate 05/03/20 No Physical Exam Physical Exam Constitutional: Well developed, well nourished, no acute distress, non-toxic appearance. 40-year-old female holding her right lower back with her right upper extremity. HENT: Normocephalic, atraumatic, bilateral external ears normal, oropharynx moist, no oral exudates, nose normal. Eyes: PERRLA, EOMI, conjunctiva normal, no discharge. Neck: Normal range of motion, no tenderness, supple, no stridor. Cardiovascular:Heart rate regular rhythm, no murmur Lungs & Thorax: Bilateral breath sounds clear to auscultation Abdomen: Bowel sounds normal, soft, no tenderness, no masses, no pulsatile masses. Skin: Warm, dry, no erythema, no rash. Back: No CVA tenderness on the left or right, no midline spinal tenderness appreciated, right lumbar area pain to palpation down to right mid buttock area. No loss of sensation, distal cap refill less than 2 seconds bilaterally, +2/4 pulses dorsalis pedis, posterior tibial, no swelling appreciated, no cyanosis appreciated. Extremities: No tenderness, no cyanosis, no clubbing, ROM intact, no edema. See back assessment note. Neurologic: Alert and oriented X 3, normal motor function, normal sensory function, no focal deficits noted. Psychologic: Affect normal, judgement normal, mood normal. Current Patient Data Vital Signs Vital Signs Date Time Temp Pulse Resp B/P (MAP) Pulse Ox O2 Delivery O2 Flow Rate FiO2 08/01/20 13:23 18 100 Room Air 08/01/20 12:56 98.2 83 157/95 (115) EKG EKG [] Radiology/Procedures Radiology/Procedures [] Heart Score C/O Chest Pain: No Risk Factors: Risk Factors: DM, Current or recent (<one month) smoker, HTN, HLP, family history of CAD, obesity. Risk Scores: Risk Factors: DM, Current or recent (<one month) smoker, HTN, HLP, family history of CAD, obesity. Course & Med Decision Making Course & Med Decision Making Pertinent Labs and Imaging studies reviewed. (See chart for details) 40-year-old female, vital signs reviewed, presents emergency department acute exacerbation of right low back pain after picking an object up off the floor this morning. Physical examination consistent with sciatica flareup, there was no acute traumatic injury, imaging not indicated. Patient had taken her pain medications at home prior to arrival for her chronic low back pains without relief. Discussed with patient will give Depo-Medrol IM injection, 1 mg IM Dilaudid, will wait a period time to reevaluate pain. Patient reports good pain relief stating her pain is down to a 7. Patient states she is feeling much better and is ready to go home. Discussed with patient application of ice packs to low back 30 minutes on 30 minutes off for the next 24 to 48 hours, will prescribe Medrol Dosepak at home, continue home medications. Follow-up with primary care for ongoing chronic back pain. Patient gave verbal understanding of discharge home instructions, follow-up with PCP, [facility], had no further questions or concerns and was discharged home without incident. Dragon Disclaimer Dragon Disclaimer This electronic medical record was generated, in whole or in part, using a voice recognition dictation system. Departure Departure: Impression: Primary Impression: Sciatica of right side Additional Impression: Low back pain Disposition: 01 HOME / SELF CARE / HOMELESS Condition: GOOD Referrals: CATRACHO SIMENTAL MD (PCP) Patient Instructions: Sciatica Additional Instructions: You were seen today in the emergency department for low back pain, you self treated at home with muscle relaxers and pain medications for your chronic pains, you were given a Depo-Medrol injection today in the emergency department, I am prescribing you a Medrol Dosepak to take at home, please take as directed, continue to take your home medications as directed by your primary care physician. Follow-up with your primary care physician for ongoing back pain for ongoing pain management, return to the emergency department for worsening symptoms or other concerns. EMERGENCY DEPARTMENT GENERAL DISCHARGE INSTRUCTIONS Thank you for coming to [facility] (ED) today and trusting us with you care. We trust that you had a positivie experience in our Emergency Department. If you wish to speak to the department management, you may call the director at [phone]. YOUR FOLLOW UP INSTRUCTIONS ARE FOLLOWS: 1. Do you have a private Doctor? If you do not have a private doctor, please ask for a resource list of physicians or clinics that may be able to assist you with follow up care. 2. The Emergency Physician has interpreted your x-rays. The X-Ray specialist will also review them. If there is a change in the findings, you will be notified in 48 hours when at all possible. 3. A lab test or culture has been done, your results will be reviewed and you will be notified if you need a change in treatment. ADDITIONAL INSTRUCTIONS AND INFORMATION: 1. Your care today has been supervised by a physician who is specially trained in emergency care. Many problems require more than one evaluation for a complete diagnosis and treatment. We recommend that you schedule your follow up appointment as recommended to ensure complete treatment of you illness or injury. If you are unable to obtain follow up care and continue to have a problem, or if your condition worsens, we recommend that you return to the ED. 2. We are not able to safely determine your condition over the phone nor are we able to give sound medical advice over the phone. For these safety reasons, if you call for medical advice we will ask you to come to the ED for further evaluation. 3. If you have any questions regarding these discharge instructions please call the ED at [phone]. SAFETY INFORMATION: In the interest of safety, wellness, and injury prevention; we encourage you to wear your sealbelt, if you smoke; quite smoking, and we encourage family to use a protective helmet for bicycling and other sporting events that present an increased risk for head injury. IF YOUR SYMPTOMS WORSEN OR NEW SYMPTOMS DEVELOP, OR YOU HAVE CONCERNS ABOUT YOUR CONDITION; OR IF YOUR CONDITION WORSENS WHILE YOU ARE WAITING FOR YOUR FOLLOW UP APPO INTMENT; EITHER CONTACT YOUR PRIMARY CARE DOCTOR, THE PHYSICIAN WHOSE NAME AND NUMBER YOU WERE GIVEN, OR RETURN TO THE ED IMMEDIATELY. Scripts Methylprednisolone (MEDROL) 4 Mg Tab.ds.pk 1 PKG PO UD for BACK PAIN FLARE UP, #1 PKG 0 Refills Prov: LENI CHEW APRN 08/01/20 Problem Qualifiers Additional Impression: Low back pain Chronicity: acute Back pain laterality: right Sciatica presence: with sciatica Sciatica laterality: sciatica of right side Qualified Codes: M54.41 - Lumbago with sciatica, right side LENI CHEW APRN August 01, 2020 13:36
[2020-08-01] MEDS ORDERED: METH4TAB2 PO (13:46)
== END 2020-08-01 13:55 | disposition home or self-care (01) ==
LOC: ER 12:42
DX: M54.41 Lumbago with sciatica, right side (principal); I10 Essential (primary) hypertension; F17.210 Nicotine dependence, cigarettes, uncomplicated; Z88.1 Allergy status to other antibiotic agents; Z88.6 Allergy status to analgesic agent; Z88.8 Allergy status to other drugs, medicaments and biological substances
CPT/HCPCS: 96372; 99284; J1040; J1170

== ENCOUNTER 2020-08-11 14:02 | Emergency (ER) | payer OTHER ==
[~2020-08-11] VITALS: Ht 162.6 cm; Wt 104.5 kg
[2020-08-11 14:09] VITALS: BP 111/89
--- NOTE | 2020-08-11 14:49 | PHYS DOC ---
Past History Past Medical History: Cancer, Hypertension Additional Past Medical Histor: right leg, 2001 (BC LOVETT APRN) Past Surgical History: Cholecystectomy, Hysterectomy, Tonsillectomy, Other Additional Past Surgical Histo: right leg r/t cancer, adenoidectomy, (BC LOVETT APRN) Smoking: Cigarettes, Less than 1pk/day Alcohol Use: None Drug Use: None (BC LOVETT APRN) General Adult EDM: Chief Complaint: LOWER BACK PAIN OR INJURY HPI: HPI: Patient is a 40-year-old female presents with midline lower back pain. Patient denies traumatic injury. Patient reports this is the third time she has had to be seen since June. Patient was seen in the emergency room a month ago and had a CT of her back which was negative for any acute abnormalities or malignancies. Denies numbness, radiation of pain, urinary retention or loss of bowel. Patient reports pain is worse with ambulation. She reports that she has been taking muscle relaxer, hydrocodone daily and just finished her Medrol Dosepak. (BC LOVETT APRN) Review of Systems: Review of Systems: Constitutional: Denies fever or chills Eyes: Denies change in visual acuity HENT: Denies nasal congestion or sore throat Respiratory: Denies cough or shortness of breath Cardiovascular: Denies chest pain or edema GI: Denies abdominal pain, nausea, vomiting, bloody stools or diarrhea : Denies dysuria Musculoskeletal: Reports midline back pain denies joint pain Integument: Denies rash Neurologic: Denies headache, focal weakness or sensory changes Endocrine: Denies polyuria or polydipsia Lymphatic: Denies swollen glands Psychiatric: Denies depression or anxiety (BC LOVETT APRN) Allergies: Allergies: Allergies Coded Allergies Type Severity Reaction Last Updated Verified Cephalosporins Allergy Intermediate 08/11/20 Yes cephalexin Allergy Intermediate rash 08/11/20 No prochlorperazine Allergy Intermediate 08/11/20 Yes sargramostim Allergy Intermediate 08/11/20 Yes vancomycin Allergy Intermediate 08/11/20 No (BC LOVETT APRN) Physical Exam: PE: Constitutional: Well developed, well nourished, no acute distress, non-toxic appearance. [] HENT: Normocephalic, atraumatic, bilateral external ears normal, oropharynx moist, no oral exudates, nose normal. [] Cardiovascular:Heart rate regular rhythm, no murmur [] Lungs & Thorax: Bilateral breath sounds clear to auscultation [] Back: Midline tenderness, no CVA tenderness. [] Extremities: No tenderness, no cyanosis, no clubbing, ROM intact, no edema. [] Neurologic: Alert and oriented X 3, normal motor function, normal sensory function, no focal deficits noted. [] Psychologic: Affect normal, judgement normal, mood normal. [] (BC LOVETT APRN) Current Patient Data: Vital Signs: Vital Signs Date Time Temp Pulse Resp B/P (MAP) Pulse Ox O2 Delivery O2 Flow Rate FiO2 08/11/20 14:09 98.7 94 16 111/89 (96) 99 Room Air (BC LOVETT APRN) EKG: EKG: [] (BC LOVETT APRN) Radiology/Procedures: Radiology/Procedures: [] (BC LOVETT APRN) Heart Score: C/O Chest Pain: No Risk Factors: Risk Factors: DM, Current or recent (<one month) smoker, HTN, HLP, family history of CAD, obesity. Risk Scores: Score 0 - 3: 2.5% MACE over next 6 weeks - Discharge Home Score 4 - 6: 20.3% MACE over next 6 weeks - Admit for Clinical Observation Score 7 - 10: 72.7% MACE over next 6 weeks - Early Invasive Strategies (BC LOVETT APRN) Course & Med Decision Making: Course & Med Decision Making Pertinent Labs and Imaging studies reviewed. (See chart for details) [] 40-year-old female presents with midline, lower back pain. Patient was seen a month ago for same symptoms and CT of the back was negative for malignancy or acute abnormalities. Denies radiation of pain, numbness, loss of bowel or urinary retention. Denies traumatic injury. No indication for repeat imaging imaging. Patient's pain has been intermittent for the last month. Patient given Toradol for pain relief. Patient is currently taking muscle relaxer and [place] for pain. Explained to patient she will need to follow-up with her PCP for further management or imaging. (BC LOVETT APRN) Course & Med Decision Making I oversaw on the above date of service of this patient and discussed the care with the [employer]. Patient had recent CT imaging over point of interest recently, no trauma, high risk medication use such as steroids or IV drug use etc. since then. Has not attempted to contact primary care physician to review uncontrolled pain. I feel she might be pain seeking given the fact that she was given IM Dilaudid at last visit. I agree with the findings, plan of care, and disposition as documented. Electronically signed, Noah Chavez DO (NOAH CHAVEZ DO) Laly Disclaimer: Laly Disclaimer: This electronic medical record was generated, in whole or in part, using a voice recognition dictation system. ([employer]) Departure Departure: Impression: Primary Impression: Midline low back pain without sciatica Qualified Codes: M54.5 - Low back pain Disposition: HOME / SELF CARE / HOMELESS Condition: STABLE Referrals: CATRACHO GAGNON MD (PCP) Patient Instructions: Back Pain, Adult Additional Instructions: You were seen in the emergency room for back pain. You were given Toradol for pain relief. You will need to follow-up with your PCP, Dr. Gagnon for further management or possible imaging. Please return to the emergency room if you have worsening symptoms or concerns. EMERGENCY DEPARTMENT GENERAL DISCHARGE INSTRUCTIONS Thank you for coming to [facility] (ED) today and trusting us with you care. We trust that you had a positivie experience in our Emergency Department. If you wish to speak to the department management, you may call the director at [phone]. YOUR FOLLOW UP INSTRUCTIONS ARE FOLLOWS: 1. Do you have a private Doctor? If you do not have a private doctor, please ask for a resource list of physicians or clinics that may be able to assist you with follow up care. 2. The Emergency Physician has interpreted your x-rays. The X-Ray specialist will also review them. If there is a change in the findings, you will be notified in 48 hours when at all possible. 3. A lab test or culture has been done, your results will be reviewed and you will be notified if you need a change in treatment. ADDITIONAL INSTRUCTIONS AND INFORMATION: 1. Your care today has been supervised by a physician who is specially trained in emergency care. Many problems require more than one evaluation for a complete diagnosis and treatment. We recommend that you schedule your follow up appointment as recomme nded to ensure complete treatment of you illness or injury. If you are unable to obtain follow up care and continue to have a problem, or if your condition worsens, we recommend that you return to the ED. 2. We are not able to safely determine your condition over the phone nor are we able to give sound medical advice over the phone. For these safety reasons, if you call for medical advice we will ask you to come to the ED for further evaluation. 3. If you have any questions regarding these discharge instructions please call the ED at [phone]. SAFETY INFORMATION: In the interest of safety, wellness, and injury prevention; we encourage you to wear your sealbelt, if you smoke; quite smoking, and we encourage family to use a protective helmet for bicycling and other sporting events that present an increased risk for head injury. IF YOUR SYMPTOMS WORSEN OR NEW SYMPTOMS DEVELOP, OR YOU HAVE CONCERNS ABOUT YOUR CONDITION; OR IF YOUR CONDITION WORSENS WHILE YOU ARE WAITING FOR YOUR FOLLOW UP APPOINTMENT; EITHER CONTACT YOUR PRIMARY CARE DOCTOR, THE PHYSICIAN WHOSE NAME AND NUMBER YOU WERE GIVEN, OR RETURN TO THE ED IMMEDIATELY. BC LOVETT APRN Aug 11, 2020 14:49 NOAH CHAVEZ DO Aug 12, 2020 06:35
[2020-08-11] MEDS: KETOROLAC 15 MG/ML VIAL. IM ONE (14:59)
== END 2020-08-11 15:14 | disposition home or self-care (01) ==
LOC: ER 14:02
DX: M54.5 Low back pain (principal); I10 Essential (primary) hypertension; F17.210 Nicotine dependence, cigarettes, uncomplicated; Z90.49 Acquired absence of other specified parts of digestive tract; Z90.710 Acquired absence of both cervix and uterus; Z88.1 Allergy status to other antibiotic agents; Z88.8 Allergy status to other drugs, medicaments and biological substances
CPT/HCPCS: 96372; 99283; J1885

== ENCOUNTER 2020-08-27 14:09 | Emergency (ER) | payer OTHER ==
[~2020-08-27] VITALS: Ht 162.6 cm; Wt 114.8 kg
[2020-08-27] MEDS ORDERED: ASPIRIN CHEWABLE 81 MG TABLET. PO ONE (14:15)
--- NOTE | 2020-08-27 14:46 | PHYS DOC ---
Past History Past Medical History: Cancer, Hypertension Additional Past Medical Histor: right leg, 2001 Past Surgical History: Cholecystectomy, Hysterectomy, Tonsillectomy, Other Additional Past Surgical Histo: right leg r/t cancer, adenoidectomy, Smoking: Cigarettes, Less than 1pk/day Alcohol Use: Occasionally Drug Use: None General Adult EDM: Chief Complaint: DIZZY/LIGHT HEADED HPI: HPI: Patient is a 40-year-old female coming in with complaints of low blood pressure. Patient states she had a history of hypertension and her systolic blood pressures usually run 140. Patient states that over the past 2 to 3 days her systolic is between 90 and 92. Patient states that with getting up or moving around she feels lightheaded. Patient states she has not passed out or fallen. States she has had her usual mild headache over the past few days as well. Patient states that she has had no chest pain, shortness of breath, lower extremity edema. Denies any changes in medications, takes 20 mg lisinopril daily. Denies any heat exposure or being outside for prolonged periods of time. Patient states she has had decreased p.o. intake recently. No changes or increase or decrease in urination. Patient states she has had some night sweats and chills. Review of Systems: Review of Systems: All other systems within normal limits except for as noted in the HPI Current Medications: Current Meds: Current Medications Medications (Trade) Dose Ordered Sig/[facility] Start Time Stop Time Status Last Admin Dose Admin Aspirin (Aspirin Chewable) 324 mg 1X ONCE 08/27/20 14:15 08/27/20 14:27 DC Allergies: Allergies: Allergies Coded Allergies Type Severity Reaction Last Updated Verified Cephalosporins Allergy Intermediate 08/11/20 Yes cephalexin Allergy Intermediate rash 08/11/20 No prochlorperazine Allergy Intermediate 08/11/20 Yes sargramostim Allergy Intermediate 08/11/20 Yes vancomycin Allergy Intermediate 08/11/20 No Physical Exam: PE: Constitutional: Well developed, well nourished, no acute distress, non-toxic appearance. [] HENT: Normocephalic, atraumatic, bilateral external ears normal, nose normal. [] Eyes: PERRLA, conjunctiva normal, no discharge. [] Neck: No rigidity, supple, no stridor. [] Cardiovascular: Regular rate and rhythm, brisk cap refill [] Lungs & Thorax: Non labored symmetric respirations, no tachypnea or respiratory distress [] Abdomen: Soft, nondistended. Skin: Warm, dry, no erythema, no rash. [] Back: Unremarkable Extremities: No deformities, range of motion grossly intact, no lower extremity edema [] Neurologic: Alert and oriented X 3, no focal deficits noted. [] Psychologic: Affect normal, judgement normal, mood normal. [] Current Patient Data: Vital Signs: Vital Signs Date Time Temp Pulse Resp B/P (MAP) Pulse Ox O2 Delivery O2 Flow Rate FiO2 08/27/20 14:18 98.2 78 16 135/56 82 100 Room Air EKG: EKG: Sinus rhythm, heart rate 69 bpm, no ST elevation or depression, borderline left axis deviation [] Radiology/Procedures: Radiology/Procedures: [place] [address] IMAGING REPORT Signed PATIENT: SARAH URENA ACCOUNT: [id number] : 1980 LOCATION: ER AGE: 40 SEX: F EXAM STATUS: REG ER ORD. PHYSICIAN: WENDY VIZCAINO MD REASON: chest pain PROCEDURE: CHEST PA & LATERAL XR CHEST 2V CLINICAL INDICATIONS: Chest pain COMPARISON: June 25, 2020. Findings: No acute lung infiltrate or pleural effusion or pulmonary edema or lung mass or pneumothorax is seen. The heart size, pulmonary vasculature, mediastinum and both kodi are unremarkable. The osseous structures appear intact. IMPRESSION: No acute radiographic abnormality is seen. Electronically signed by: Luis Medellin MD (08/27/2020 2:58 PM) [id number] DICTATED AND SIGNED BY: LUIS MEDELLIN MD DATE: 08/27/20 1457 CC: WENDY VIZCAINO MD; CATRACHO SIMENTAL MD ~MTH0 0 [] Heart Score: C/O Chest Pain: No HEART Score for Chest Pain: HEART Score for Chest Pain Response (Comments) Value History Slighlty/Non-Suspicious 0 ECG Normal 0 Age < 45 0 Risk Factors No Risk Factors 0 Troponin < Normal Limit 0 Total 0 Risk Factors: Risk Factors: DM, Current or recent (<one month) smoker, HTN, HLP, family history of CAD, obesity. Risk Scores: Score 0 - 3: 2.5% MACE over next 6 weeks - Discharge Home Score 4 - 6: 20.3% MACE over next 6 weeks - Admit for Clinical Observation Score 7 - 10: 72.7% MACE over next 6 weeks - Early Invasive Strategies Course & Med Decision Making: Course & Med Decision Making Pertinent Labs and Imaging studies reviewed. (See chart for details) Work remarkable. Advised patient to discontinue taking her lisinopril and follow-up with her primary care. Has an appointment scheduled for the following week. Discussed return precautions. Orthostatic vital signs unremarkable except for increase in heart rate of 11 bpm with standing [] Dragon Disclaimer: Dragon Disclaimer: This electronic medical record was generated, in whole or in part, using a voice recognition dictation system. Departure Departure: Impression: Primary Impression: Head ache Additional Impression: Light headedness Disposition: 01 HOME / SELF CARE / HOMELESS Condition: STABLE Referrals: CATRACHO SIMENTAL MD (PCP) Patient Instructions: Near-Syncope WENDY VIZCAINO MD Aug 27, 2020 14:46
[2020-08-27 14:59] LABS: BASO # 0.1 x10^3/uL (0.0-0.2); BASO % 1 % (0-3); EOS # 0.1 x10^3/uL (0.0-0.7); EOS % 1 % (0-3); HEMATOCRIT 40.6 % (36.0-47.0); HEMOGLOBIN 13.5 g/dL (12.0-15.5); LYMPH # 2.7 x10^3/uL (1.0-4.8); LYMPH % 23 % (24-48); MEAN CORPUSCULAR HEMOGLOBIN 30 pg (25-35); MEAN CORPUSCULAR HGB CONC 33 g/dL (31-37); MEAN CORPUSCULAR VOLUME 89 fL (79-100); MONO # 0.8 x10^3/uL (0.0-1.1); MONO % 7 % (0-9); NEUT # 8.3 x10^3uL (1.8-7.7); NEUT % 69 % (31-73); PLATELET COUNT 251 x10^3/uL (140-400); RED BLOOD COUNT 4.55 x10^6/uL (3.50-5.40)
--- NOTE | 2020-08-27 15:00 | RAD ---
XR CHEST 2V CLINICAL INDICATIONS: Chest pain COMPARISON: June 25, 2020. Findings: No acute lung infiltrate or pleural effusion or pulmonary edema or lung mass or pneumothora x is seen. The heart size, pulmonary vasculature, mediastinum and both kodi are unremarkable. The os seous structures appear intact. IMPRESSION: No acute radiographic abnormality is seen. Electronically signed by: Ez Medellin MD (08/27/2020 2:58 PM) [id number]
[2020-08-27 15:09] LABS: CALCIUM 8.8 mg/dL (8.5-10.1); CREATININE 0.9 mg/dL (0.6-1.0); POTASSIUM 3.7 mmol/L (3.5-5.1)
[2020-08-27] MEDS ORDERED: IV NORMAL SALINE 1,000ML 1,000 ML IV ONE (15:15)
[2020-08-27 15:21] LABS: ALBUMIN 3.7 g/dL (3.4-5.0); ALBUMIN/GLOBULIN RATIO 1.1 (1.0-1.7); MAGNESIUM 2.1 mg/dL (1.8-2.4); PHOSPHORUS 2.8 mg/dL (2.6-4.7); TOTAL BILIRUBIN 0.4 mg/dL (0.2-1.0); TOTAL PROTEIN 7.2 g/dL (6.4-8.2)
--- NOTE | 2020-08-27 15:40 | EKG ---
[address] [address] Test Date: 2020-08-27 Test Time: 14:57:18 Pat Name: SARAH URENA Department: Room: Gender: F [employer] Service Man: RENZO : 1980 Requested By: WENDY VIZCAINO Order Number: [id number] Reading MD: Measurements Intervals [place] Rate: 69 P: 26 [place]: 186 QRS: -5 QRSD: 106 T: 19 QT: 396 QTc: 430 Interpretive Statements SINUS RHYTHM LEFTWARD AXIS OTHERWISE NORMAL ECG RI6.02 No previous ECG available for comparison
[2020-08-27] MEDS ORDERED: ONDANSETRON PF 4 MG/2 ML VIAL. IVP ONE (15:45)
[2020-08-27 16:05] LABS: BILIRUBIN,URINE NEG (NEG); CLARITY,URINE CLEAR; COLOR,URINE YELLOW; GLUCOSE,URINE NEG (NEG); NITRITE,URINE NEG (NEG); UROBILINOGEN,URINE 0.2 mg/dL (0.2 mg/dL)
[2020-08-27 16:09] LABS: BACTERIA,URINE FEW /HPF (0-FEW); RBC,URINE OCC /HPF (0-2); SQUAMOUS EPITHELIAL CELL,UR FEW /LPF
[2020-08-27 16:13] VITALS: BP 123/55
[2020-08-27] MEDS ORDERED: KETOROLAC 15 MG/ML VIAL. IVP ONE (16:15)
[2020-08-27] MEDS ORDERED: ACETAMINOPHEN 500 MG TABLET PO ONE (16:45)
== END 2020-08-27 17:00 | disposition home or self-care (01) ==
LOC: ER 14:09
DX: R42 Dizziness and giddiness (principal); R51.9 Headache, unspecified; F17.210 Nicotine dependence, cigarettes, uncomplicated; Z88.1 Allergy status to other antibiotic agents; Z90.49 Acquired absence of other specified parts of digestive tract; Z90.710 Acquired absence of both cervix and uterus
CPT/HCPCS: 36415; 71046; 80053; 81001; 81025; 83690; 83735; 83880; 84100; 84484; 85025; 85379; 85610; 93005; 96361; 96374; 96375; 99285; J1885; J2405; J7030

== ENCOUNTER 2020-08-29 20:23 | Emergency (ER) | payer OTHER ==
[~2020-08-29] VITALS: Ht 162.6 cm; Wt 114.8 kg
--- NOTE | 2020-08-29 21:12 | PHYS DOC ---
Past History Past Medical History: Anxiety, Arthritis, Cancer, Hypertension, Hypotension, Migraines Additional Past Medical Histor: right leg, 2001 Past Surgical History: Cholecystectomy, Hysterectomy, Tonsillectomy, Other Additional Past Surgical Histo: right leg r/t cancer, adenoidectomy, Smoking: Cigarettes, Less than 1pk/day Alcohol Use: Occasionally Drug Use: None General Adult EDM: Chief Complaint: DIZZY/LIGHT HEADED HPI: HPI: "..I ve been dizzy the last day or so.. maybe I got dehydrated...".. " may get low blood pressure pretty easy...I got high blood pressure too.. and now I am starting to get a migraine headache..." Patient is a 40 year old female who presents with above hx and complaints of dizzy, and starting to get a migraine headache. Dizziness is not. Tickly vertigo-like. Head position does not seem to make looseness worse. Patient denies any trauma. No recent travel. No specific ill contacts. History of fever or chills. No history change in her baseline meds. Does have a history of hypertension that is poorly controlled. Patient has past medical history significant for cancer, right leg in 2001, tonsil adenoidectomy, , cholecystectomy, hysterectomy,. Patient does continue to smoke approximately 1 pack a day. Patient normally follows with Dr. Simental Review of Systems: Review of Systems: Constitutional: Denies fever or chills Eyes: Denies change in visual acuity HENT: Denies nasal congestion or sore throat Respiratory: Denies cough or shortness of breath Cardiovascular: Denies chest pain or edema GI: Denies abdominal pain, nausea, vomiting, bloody stools or diarrhea : Denies dysuria Musculoskeletal: Denies back pain or joint pain Integument: Denies rash Neurologic: Complains of headache. Denies, focal weakness or sensory changes. Complains of dizziness Endocrine: Denies polyuria or polydipsia Lymphatic: Denies swollen glands Psychiatric: Denies depression or anxiety Family History: Family History: Noncontributory to presentation Current Medications: Current Meds: See nursing for home meds Allergies: Allergies: Allergies Coded Allergies Type Severity Reaction Last Updated Verified Cephalosporins Allergy Intermediate 08/11/20 Yes cephalexin Allergy Intermediate rash 08/11/20 No prochlorperazine Allergy Intermediate 08/11/20 Yes sargramostim Allergy Intermediate 08/11/20 Yes vancomycin Allergy Intermediate 08/11/20 No Physical Exam: PE: Constitutional: no acute distress, non-toxic appearance. [] HENT: Normocephalic, atraumatic, bilateral external ears normal, oropharynx moist, no oral exudates, nose normal. No nystagmus. TMs clear.. No temporal artery tenderness Eyes: PERRLA, EOMI, conjunctiva normal, no discharge. No appreciable field deficits Neck: Normal range of motion, no tenderness, supple, no stridor. No bruits Cardiovascular:Heart rate regular rhythm, no murmur [] PMI to left. Bedside monitor shows sinus rhythm. Lungs & Thorax: Bilateral breath sounds equal apex with scattered wheezes on auscultation [] Abdomen: Bowel sounds normal, soft, no tenderness, no masses, no pulsatile masses. Obese. Old surgery scars. Skin: Warm, dry, no erythema, no rash. Tattoos Back: No tenderness, no CVA tenderness. [] Extremities: No tenderness, no cyanosis, no clubbing, ROM intact, no edema. No cording appreciated. Large scar right leg Neurologic: Alert and oriented X 3, moves all extremities on request, has distal sensory,, no focal deficits noted. Ambulatory without problems. Right-hand dominant. No drift. DTRs +2 patella and brachial. Psychologic: Affect anxious, judgement normal, mood normal. [] Current Patient Data: Vital Signs: Vital Signs Date Time Temp Pulse Resp B/P (MAP) Pulse Ox O2 Delivery O2 Flow Rate FiO2 08/29/20 20:30 98.1 74 16 123/87 (99) 98 Room Air EKG: EKG: [] Radiology/Procedures: Radiology/Procedures: Patient defers CT at this time. [] Heart Score: C/O Chest Pain: N/A Risk Factors: Risk Factors: DM, Current or recent (<one month) smoker, HTN, HLP, family history of CAD, obesity. Risk Scores: Score 0 - 3: 2.5% MACE over next 6 weeks - Discharge Home Score 4 - 6: 20.3% MACE over next 6 weeks - Admit for Clinical Observation Score 7 - 10: 72.7% MACE over next 6 weeks - Early Invasive Strategies Course & Med Decision Making: Course & Med Decision Making Pertinent Labs and Imaging studies reviewed. (See chart for details) Currently patient defers spinal tap evaluation for headache. Risk and benefits discussed. Patient follow-up primary care. Patient to follow-up with neurology. Patient take meds previous directed. Patient return if any concerns. Patient Tylenol and ibuprofen as needed for pain. May take Zofran 8 mg and Benadryl 25 to 50 mg 4 times a day for nausea associated with migraine headache. Patient return if any concerns. Recommend patient follow-up with neurology. Find alternate forms of treatment or control or suppression of migraine headaches. Impression: 1. Migraine variant 2. Tobacco use [] Dragon Disclaimer: Dragon Disclaimer: This electronic medical record was generated, in whole or in part, using a voice recognition dictation system. Departure Departure: Referrals: CATRACHO SIMENTAL MD (PCP) Scripts Ondansetron Hcl (ZOFRAN) 4 Mg Tablet 8 MG PO QIDPRN PRN for NAUSEA/VOMITING, #30 TAB Prov: SREEDHAR ZACARIAS MD 08/29/20 Dragon Disclaimer This chart was dictated in whole or in part using Voice Recognition software in a busy, high-work load, and often noisy Emergency Department environment. It may contain unintended and wholly unrecognized errors or omissions. Dragon Disclaimer This chart was dictated in whole or in part using Voice Recognition software in a busy, high-work load, and often noisy Emergency Department environment. It may contain unintended and wholly unrecognized errors or omissions. SREEDHAR ZACARIAS MD Aug 29, 2020 21:12
[2020-08-29 21:27] LABS: BASO # 0.1 x10^3/uL (0.0-0.2); BASO % 1 % (0-3); EOS # 0.2 x10^3/uL (0.0-0.7); EOS % 2 % (0-3); HEMATOCRIT 38.3 % (36.0-47.0); HEMOGLOBIN 13.1 g/dL (12.0-15.5); LYMPH # 3.1 x10^3/uL (1.0-4.8); LYMPH % 33 % (24-48); MEAN CORPUSCULAR HEMOGLOBIN 30 pg (25-35); MEAN CORPUSCULAR HGB CONC 34 g/dL (31-37); MEAN CORPUSCULAR VOLUME 89 fL (79-100); MONO # 0.7 x10^3/uL (0.0-1.1); MONO % 7 % (0-9); NEUT # 5.3 x10^3uL (1.8-7.7); NEUT % 57 % (31-73); PLATELET COUNT 269 x10^3/uL (140-400); RED BLOOD COUNT 4.31 x10^6/uL (3.50-5.40); RED CELL DISTRIBUTION WIDTH 13.1 % (11.5-14.5); WHITE BLOOD COUNT 9.4 x10^3/uL (4.0-11.0)
[2020-08-29 21:28] LABS: CALCIUM 8.8 mg/dL (8.5-10.1); CREATININE 0.8 mg/dL (0.6-1.0); MAGNESIUM 2.2 mg/dL (1.8-2.4); POTASSIUM 4.2 mmol/L (3.5-5.1)
[2020-08-29] MEDS ORDERED: IV RINGERS SOLUTION,LACTATED 1,000 ML IV ONE (22:30)
[2020-08-29] MEDS ORDERED: MORPHINE SULFATE 10 MG/ML SYRINGE. SQ ONE ×2 (22:30→23:45)
[2020-08-29] MEDS ORDERED: KETOROLAC 30 MG/ML VIAL. IVP ONE (22:30)
[2020-08-29] MEDS ORDERED: diphenhydrAMINE 50 MG/ML VIAL IVP ONE (22:30)
[2020-08-29] MEDS ORDERED: ONDANSETRON PF 4 MG/2 ML VIAL. IVP ONE (22:30)
[2020-08-29] MEDS ORDERED: ONDA4TAB7 PO (22:33)
[2020-08-29 22:46] LABS: BARBITURATES NEG (NEG); BENZODIAZEPINES NEG (NEG); CANNABINOIDS NEG (NEG); COCAINE NEG (NEG); METHADONE NEG (NEG); OPIATES POS (NEG); PHENCYCLIDINE NEG (NEG)
[2020-08-29 22:50] LABS: AMPHETAMINE/METHAMPHETAMINE NEG (NEG)
[2020-08-29 22:58] LABS: BILIRUBIN,URINE NEG (NEG); CLARITY,URINE CLEAR; COLOR,URINE YELLOW; GLUCOSE,URINE NEG (NEG); NITRITE,URINE NEG (NEG); UROBILINOGEN,URINE 0.2 mg/dL (0.2 mg/dL)
[2020-08-29 23:02] LABS: BACTERIA,URINE 0 /HPF (0-FEW); RBC,URINE 0 /HPF (0-2); SQUAMOUS EPITHELIAL CELL,UR OCC /LPF; WBC,URINE 0 /HPF (0-4)
[2020-08-29 23:28] VITALS: BP 132/76
[2020-08-30] MEDS ORDERED: ONDANSETRON PF 4 MG/2 ML VIAL. IV ONE (00:30)
== END 2020-08-30 00:37 | disposition home or self-care (01) ==
LOC: ER 20:23
DX: G43.809 Other migraine, not intractable, without status migrainosus (principal); F41.9 Anxiety disorder, unspecified; M19.90 Unspecified osteoarthritis, unspecified site; I10 Essential (primary) hypertension; F17.210 Nicotine dependence, cigarettes, uncomplicated; Z88.1 Allergy status to other antibiotic agents; Z88.8 Allergy status to other drugs, medicaments and biological substances
CPT/HCPCS: 36415; 80048; 80307; 81001; 83735; 85025; 96361; 96372; 96374; 96375; 96376; 99285; J1200; J1885; J2270; J2405; J7120

== ENCOUNTER 2021-01-12 15:15 | Emergency (ER) | payer OTHER ==
[~2021-01-12] VITALS: Ht 162.6 cm; Wt 119.1 kg
[~2021-01-12 15:15] MED LIST changes: +ONDA4TAB7 PO
--- NOTE | 2021-01-12 15:57 | PHYS DOC ---
Past History Past Medical History: Anxiety, Arthritis, Cancer, Hypertension, Hypotension, Migraines Additional Past Medical Histor: CANCER RIGHT DISTAL THIGH WITH CHEMO, RADIATION AND SURGERY 19YRS AGO Past Surgical History: Cholecystectomy, , Hysterectomy, Tonsillectomy, Other Additional Past Surgical Histo: right leg r/t cancer, adenoidectomy Smoking: Cigarettes, Less than 1pk/day Alcohol Use: Occasionally Drug Use: None General Adult EDM: Chief Complaint: SKIN RASH/ABSCESS HPI: HPI: Patient is a [age] year old [sex] who presents with [] Review of Systems: Review of Systems: Constitutional: Denies fever or chills Eyes: Denies redness or eye pain HENT: Denies nasal congestion or sore throat Respiratory: Denies cough or shortness of breath Cardiovascular: Denies chest pain or palpitations GI: Denies abdominal pain, nausea, or vomiting : Denies dysuria or hematuria Musculoskeletal: Denies back pain or joint pain Integument: Denies rash or skin lesions Neurologic: Denies headache, focal weakness or sensory changes Complete systems were reviewed and found to be within normal limits, except as documented in this note. Allergies: Allergies: Allergies Coded Allergies Type Severity Reaction Last Updated Verified Cephalosporins Allergy Intermediate 01/12/21 Yes cephalexin Allergy Intermediate rash 01/12/21 No prochlorperazine Allergy Intermediate 01/12/21 Yes sargramostim Allergy Intermediate 01/12/21 Yes vancomycin Allergy Intermediate 01/12/21 No Physical Exam: PE: Constitutional: Well developed, well nourished, no acute distress, non-toxic appearance. [] HENT: Normocephalic, atraumatic, bilateral external ears normal, oropharynx moist, no oral exudates, nose normal. [] Eyes: PERRLA, EOMI, conjunctiva normal, no discharge. [] Neck: Normal range of motion, no tenderness, supple, no stridor. [] Cardiovascular:Heart rate regular rhythm, no murmur [] Lungs & Thorax: Bilateral breath sounds clear to auscultation [] Abdomen: Bowel sounds normal, soft, no tenderness, no masses, no pulsatile masses. [] Skin: Warm, dry, no erythema, no rash. [] Back: No tenderness, no CVA tenderness. [] Extremities: No tenderness, no cyanosis, no clubbing, ROM intact, no edema. [] Neurologic: Alert and oriented X 3, normal motor function, normal sensory function, no focal deficits noted. [] Psychologic: Affect normal, judgement normal, mood normal. [] Current Patient Data: Vital Signs: Vital Signs Date Time Temp Pulse Resp B/P (MAP) Pulse Ox O2 Delivery O2 Flow Rate FiO2 01/12/21 15:15 98.1 89 18 147/89 (108) 98 Room Air EKG: EKG: [] Radiology/Procedures: Radiology/Procedures: [] Heart Score: Risk Factors: Risk Factors: DM, Current or recent (<one month) smoker, HTN, HLP, family history of CAD, obesity. Risk Scores: Score 0 - 3: 2.5% MACE over next 6 weeks - Discharge Home Score 4 - 6: 20.3% MACE over next 6 weeks - Admit for Clinical Observation Score 7 - 10: 72.7% MACE over next 6 weeks - Early Invasive Strategies Course & Med Decision Making: Course & Med Decision Making Pertinent Labs and Imaging studies reviewed. (See chart for details) [] Dragon Disclaimer: Dragon Disclaimer: This electronic medical record was generated, in whole or in part, using a voice recognition dictation system. Departure Departure: Impression: Primary Impression: Lesion of skin of scalp Disposition: HOME / SELF CARE / HOMELESS Condition: STABLE Referrals: CATRACHO SIMENTAL MD (PCP) BENJAMIN MARI MD Patient Instructions: Excision of Skin Lesions Additional Instructions: It appears you have a healing scalp cyst. It may benefit you to follow with a general surgeon to have it removed as it reportedly keeps draining and not he aling. It does not appear to be actively infected. Continue use of empiric antibiotic ointment. LENI PLUNKETT DO Jan 12, 2021 15:57
[2021-01-12 16:05] VITALS: BP 147/81
== END 2021-01-12 16:14 | disposition home or self-care (01) ==
LOC: ER 15:15
DX: C44.40 Unspecified malignant neoplasm of skin of scalp and neck (principal); I10 Essential (primary) hypertension; F17.210 Nicotine dependence, cigarettes, uncomplicated; Z88.1 Allergy status to other antibiotic agents; Z90.49 Acquired absence of other specified parts of digestive tract; Z90.710 Acquired absence of both cervix and uterus
CPT/HCPCS: 99281

== ENCOUNTER 2021-01-18 04:38 | Emergency (ER) | payer OTHER ==
[~2021-01-18] VITALS: Ht 162.6 cm; Wt 119.5 kg
[2021-01-18] MEDS ORDERED: oxyCODONE IR 5 MG TABLET PO PRN (05:00)
[2021-01-18] MEDS ORDERED: CLIN-95 PO (05:17)
--- NOTE | 2021-01-18 05:17 | PHYS DOC ---
Past History Past Medical History: Anxiety, Arthritis, Cancer, Hypertension, Hypotension, Migraines Additional Past Medical Histor: CANCER RIGHT DISTAL THIGH WITH CHEMO, RADIATION AND SURGERY 19YRS AGO Past Surgical History: Cholecystectomy, , Hysterectomy, Tonsillectomy, Other Additional Past Surgical Histo: right leg r/t cancer, adenoidectomy Smoking: Cigarettes, Less than 1pk/day Alcohol Use: Occasionally Drug Use: None Adult General Chief Complaint Chief Complaint: DENTAL PROBLEM HPI HPI Patient is a 40-year-old female who presents with dental pain, after having a crown follow-up on her upper left molar about a month ago. States it has been intermittent. States she had not had time to see a dentist yet. States that the pain is in about 6 out of 10, sharp in nature and relatively constant. States she has tried some Tylenol yesterday with minimal relief. Denies any fevers, pain or trouble swallowing, nausea, vomiting. Review of Systems Review of Systems Review of systems otherwise unremarkable except noted in HPI Current Medications Current Medications Current Medications Medications (Trade) Dose Ordered Sig/Judy Start Time Stop Time Status Last Admin Dose Admin Acetaminophen (Tylenol) 1,000 mg 1X ONCE 01/18/21 05:30 01/18/21 05:31 01/18/21 05:08 1,000 MG Clindamycin HCl (Cleocin) 300 mg 1X ONCE 01/18/21 05:30 01/18/21 05:31 01/18/21 05:07 300 MG Ibuprofen (Motrin) 600 mg 1X ONCE 01/18/21 05:30 01/18/21 05:31 01/18/21 05:08 600 MG Oxycodone HCl (Roxicodone) 10 mg PRN Q6HRS PRN 01/18/21 05:00 01/18/21 05:07 10 MG Allergies Allergies Allergies Coded Allergies Type Severity Reaction Last Updated Verified Cephalosporins Allergy Intermediate 01/12/21 Yes cephalexin Allergy Intermediate rash 01/12/21 No prochlorperazine Allergy Intermediate 01/12/21 Yes sargramostim Allergy Intermediate 01/12/21 Yes vancomycin Allergy Intermediate 01/12/21 No Physical Exam Physical Exam Constitutional: Well developed, well nourished, no acute distress, non-toxic appearance. [] HENT: Normocephalic, atraumatic, bilateral external ears normal, oropharynx moist, no oral exudates, appears to have upper left molar dental carry, nose normal. [] Eyes: conjunctiva normal, no discharge. [] Neurologic: Alert and oriented X 3, no focal deficits noted. [] Psychologic: Affect normal, judgement normal, mood normal. [] Current Patient Data Vital Signs Vital Signs Date Time Temp Pulse Resp B/P (MAP) Pulse Ox O2 Delivery O2 Flow Rate FiO2 01/18/21 05:07 18 98 Room Air 01/18/21 04:44 98.0 95 138/76 (96) EKG EKG [] Radiology/Procedures Radiology/Procedures [] Heart Score C/O Chest Pain: No Risk Factors: Risk Factors: DM, Current or recent (<one month) smoker, HTN, HLP, family history of CAD, obesity. Risk Scores: Risk Factors: DM, Current or recent (<one month) smoker, HTN, HLP, family history of CAD, obesity. Course & Med Decision Making Course & Med Decision Making Patient is a 40-year-old female presents with dental pain Vital signs not concerning. Physical exam noted above. Given antibiotic and pain medication. Discussed symptom management at home. Advised to follow-up with a dentist today and given contact information for local dentist, free dentist and the emergency dentist. Gave return precautions to the ED. Patient grateful, verbalized understanding and agreed with plan of discharge. [] Dragon Disclaimer Dragon Disclaimer This electronic medical record was generated, in whole or in part, using a voice recognition dictation system. Departure Departure: Impression: Primary Impression: Pain, dental Disposition: HOME / SELF CARE / HOMELESS Condition: GOOD Referrals: CATRACHO SIMENTAL MD (PCP) Patient Instructions: Dental Pain Additional Instructions: Thank you for coming into the emergency department today and allowing us to take care of you. Please read the attached information carefully to go over some of the things we discussed. Please begin a Tylenol, 1000 mg every 8 hours, ibu profen 800 mg every 8 hours and Orajel as we discussed. Please call your dentist this morning to update on your ED visit and set up an appointment as soon as possible. You are also given contact information for local free dentist and the emergency dentist. You can call the emergency same-day dentist at [phone] this morning and it is very probable they will be able to get you in today Scripts Clindamycin Hcl (CLINDAMYCIN HCL) 300 Mg Capsule 1 CAP PO TID for dental pain for 7 Days, #21 CAP Prov: CRISTIANO COLLADO MD 01/18/21 CRISTIANO COLLADO MD Jan 18, 2021 05:17
[2021-01-18 05:20] VITALS: BP 130/74
[2021-01-18] MEDS ORDERED: IBUPROFEN 600 MG TABLET. PO ONE (05:30)
[2021-01-18] MEDS ORDERED: ACETAMINOPHEN 500 MG TABLET PO ONE (05:30)
[2021-01-18] MEDS ORDERED: CLINDAMYCIN HCL 150 MG CAPSULE PO ONE (05:30)
== END 2021-01-18 05:25 | disposition home or self-care (01) ==
LOC: ER 04:38
DX: K08.89 Other specified disorders of teeth and supporting structures (principal); F41.9 Anxiety disorder, unspecified; M19.90 Unspecified osteoarthritis, unspecified site; I10 Essential (primary) hypertension; G43.909 Migraine, unspecified, not intractable, without status migrainosus; F17.210 Nicotine dependence, cigarettes, uncomplicated; Z88.1 Allergy status to other antibiotic agents; Z88.8 Allergy status to other drugs, medicaments and biological substances
CPT/HCPCS: 99284

== ENCOUNTER 2021-02-19 08:40 | Emergency (ER) | payer OTHER ==
[~2021-02-19] VITALS: Ht 162.6 cm; Wt 119.3 kg
[~2021-02-19 08:40] MED LIST changes: +CLIN-95 PO
--- NOTE | 2021-02-19 09:05 | PHYS DOC ---
Past History Past Medical History: Anxiety, Arthritis, Cancer, Hypertension, Hypotension, Migraines Additional Past Medical Histor: CANCER RIGHT DISTAL THIGH WITH CHEMO, RADIATION AND SURGERY 19YRS AGO Past Surgical History: Cholecystectomy, , Hysterectomy, Tonsillectomy, Other Additional Past Surgical Histo: right leg r/t cancer, adenoidectomy Smoking: Cigarettes, Less than 1pk/day Alcohol Use: Rarely Drug Use: None General Adult EDM: Chief Complaint: BACK PAIN - NO INJURY HPI: HPI: 40-year-old female presents with left flank pain. The patient started to have intermittent sharp pain in the left flank last night before she went to bed. She was able to sleep, but was woken couple of times with the pain. It seemed to increase in intensity and when she woke up this morning is consistent a sharp pain with radiation around into her left groin. Patient states that she has no history of back problems. She has not fall or do any strenuous activity. She does have increased urinary frequency. History of kidney stones 19 years ago. Denies fever or chills. Review of Systems: Review of Systems: Constitutional: Denies fever or chills Eyes: Denies change in visual acuity HENT: Denies nasal congestion or sore throat Respiratory: Denies cough or shortness of breath Cardiovascular: Denies chest pain or edema GI: Denies abdominal pain, nausea, vomiting, bloody stools or diarrhea : Urinary frequency Musculoskeletal: Left flank pain Integument: Denies rash Neurologic: Denies headache, focal weakness or sensory changes Endocrine: Denies polyuria or polydipsia Lymphatic: Denies swollen glands Psychiatric: Denies depression or anxiety Allergies: Allergies: Allergies Coded Allergies Type Severity Reaction Last Updated Verified Cephalosporins Allergy Intermediate 01/12/21 Yes cephalexin Allergy Intermediate rash 01/12/21 No prochlorperazine Allergy Intermediate 01/12/21 Yes sargramostim Allergy Intermediate 01/12/21 Yes vancomycin Allergy Intermediate 01/12/21 No Physical Exam: PE: Constitutional: Well developed, well nourished, morbidly obese, no acute distress, non-toxic appearance. [] HENT: Normocephalic, atraumatic, bilateral external ears normal, oropharynx moist, no oral exudates, nose normal. [] Eyes: PERRLA, EOMI, conjunctiva normal, no discharge. [] Neck: Normal range of motion, no tenderness, supple, no stridor. [] Cardiovascular: Heart rate regular rhythm, no murmur [] Lungs & Thorax: Bilateral breath sounds clear to auscultation [] Abdomen: Bowel sounds normal, soft, no tenderness, no masses, no pulsatile masses. [] Skin: Warm, dry, no erythema, no rash. [] Back: No tenderness, left CVA tenderness. [] Extremities: No tenderness, no cyanosis, no clubbing, ROM intact, no edema. [] Neurologic: Alert and oriented X 3, normal motor function, normal sensory function, no focal deficits noted. [] Psychologic: Affect normal, judgement normal, mood normal. [] Current Patient Data: Vital Signs: Vital Signs Date Time Temp Pulse Resp B/P (MAP) Pulse Ox O2 Delivery O2 Flow Rate FiO2 02/19/21 08:40 90 18 143/92 (109) 99 Room Air EKG: EKG: [] Radiology/Procedures: Radiology/Procedures: [] Impressions: PQRS Compliance Statement: One or more of the following individualized dose reduction techniques were utilized for this examination: 1. Automated exposure control 2. Adjustment of the mA and/or kV according to patient size 3. Use of iterative reconstruction technique Exam performed: CT scan of the abdomen and pelvis without contrast. Clinical Indication: Reason: left flank pain / Spl. Instructions: / History: Date of Service: 02/19/2021 9:04 AM. Comparison: CT abdomen and pelvis from 05/29/2020 Technique: Contiguous helical acquisitions are obtained through the abdomen and pelvis without IV contrast. Sagittal and coronal reformatted images are obtained and reviewed. CT abdomen and pelvis findings: The lung bases are essentially clear. Visualized heart is normal. Previously seen cystic lesion in the right cardiophrenic angle is not clearly visualized. Lack of IV contrast limits evaluation of abdominal viscera, however the liver, spleen and pancreas are normal. Cholecystectomy. Both adrenal glands and bilateral kidneys are normal in size without hydronephrosis or nephrolithiasis. Left superior renal pole cyst. Aorta is normal in caliber without aneurysm. Small and large bowel loops are normal. The visualized portion of the appendix is unremarkable. Distal ureters are nondilated. Urinary bladder is decompressed and thick walled. . [Hysterectomy, no adnexal masses seen. No free or focal fluid collections or pelvic lymphadenopathy seen. Bones are normal] No free or focal fluid collect ions are identified.Bones are normal. Impression: No acute intra-abdominal or pelvic process detected. Electronically signed by: Melinda Butler MD (02/19/2021 9:54 AM) [facility] DICTATED AND SIGNED BY: MELINDA BUTLER MD DATE: 02/19/21 0951 CC: CHRISTY ALVAREZ DO; CATRACHO SIMENTAL MD ~MTH0 0 Heart Score: C/O Chest Pain: N/A Risk Factors: Risk Factors: DM, Current or recent (<one month) smoker, HTN, HLP, family history of CAD, obesity. Risk Scores: Score 0 - 3: 2.5% MACE over next 6 weeks - Discharge Home Score 4 - 6: 20.3% MACE over next 6 weeks - Admit for Clinical Observation Score 7 - 10: 72.7% MACE over next 6 weeks - Early Invasive Strategies Course & Med Decision Making: Course & Med Decision Making Pertinent Labs and Imaging studies reviewed. (See chart for details) The patient's labs are unremarkable. Her urinalysis is negative for blood or infection. Her CT of the abdomen and pelvis is negative for acute findings. The patient is still having significant pain. It seems most likely that this is musculoskeletal in nature, despite her not reporting a specific inciting event. I have treated her with morphine and Solu-Medrol in the ER. I will discharge her with 3 more days of prednisone and a short course of Percocet. Patient a yosi takes hydrocodone 5 mg 4 times a day. She is stable for discharge at this time. [] Dragon Disclaimer: Dragbk Disclaimer: This electronic medical record was generated, in whole or in part, using a voice recognition dictation system. Departure Departure: Impression: Primary Impression: Low back pain Disposition: HOME / SELF CARE / HOMELESS Condition: STABLE Referrals: CATRACHO SIMENTAL MD (PCP) Patient Instructions: Low Back Sprain with [facility]hab[facility] Scripts Oxycodone HCl/Acetaminophen (Percocet 5-325 mg Tablet) 1 Each Tablet 1 TAB PO PRN BID PRN for PAIN MDD 2 Tablet(s) for 5 Days, #10 TAB 0 Refills Prov: CHRISTY ALVAREZ DO 02/19/21 Prednisone (PREDNISONE) 50 Mg Tablet 1 TAB PO DAILY for low back pain for 3 Days, #3 TAB Prov: CHRISTY ALVAREZ DO 02/19/21 CHRISTY ALVAREZ DO Feb 19, 2021 09:05
[2021-02-19] MEDS ORDERED: IV NORMAL SALINE 1,000ML 1,000 ML IV ONE (09:15)
[2021-02-19] MEDS ORDERED: KETOROLAC 30 MG/ML VIAL. IVP ONE (09:15)
[2021-02-19] MEDS ORDERED: ONDANSETRON PF 4 MG/2 ML VIAL. IVP ONE (09:15)
[2021-02-19] MEDS ORDERED: KETOROLAC 30 MG/ML VIAL. ONE (09:27)
[2021-02-19 09:47] LABS: CALCIUM 9.7 mg/dL (8.5-10.1); CREATININE 0.8 mg/dL (0.6-1.0)
[2021-02-19 09:48] LABS: BASO # 0.1 x10^3/uL (0.0-0.2); BASO % 1 % (0-3); EOS # 0.4 x10^3/uL (0.0-0.7); EOS % 4 % (0-3); HEMATOCRIT 43.8 % (36.0-47.0); HEMOGLOBIN 14.6 g/dL (12.0-15.5); LYMPH # 2.8 x10^3/uL (1.0-4.8); LYMPH % 28 % (24-48); MEAN CORPUSCULAR HEMOGLOBIN 29 pg (25-35); MEAN CORPUSCULAR HGB CONC 33 g/dL (31-37); MEAN CORPUSCULAR VOLUME 87 fL (79-100); MONO # 0.9 x10^3/uL (0.0-1.1); MONO % 8 % (0-9); NEUT # 6.1 x10^3uL (1.8-7.7); NEUT % 60 % (31-73); PLATELET COUNT 327 x10^3/uL (140-400); RED BLOOD COUNT 5.01 x10^6/uL (3.50-5.40); RED CELL DISTRIBUTION WIDTH 13.3 % (11.5-14.5); WHITE BLOOD COUNT 10.2 x10^3/uL (4.0-11.0)
[2021-02-19 09:53] LABS: ALBUMIN 3.9 g/dL (3.4-5.0); TOTAL BILIRUBIN 0.5 mg/dL (0.2-1.0); TOTAL PROTEIN 7.7 g/dL (6.4-8.2)
--- NOTE | 2021-02-19 09:57 | RAD ---
PQRS Compliance Statement: One or more of the following individualized dose reduction techniques were utilized for this examinat ion: 1. Automated exposure control 2. Adjustment of the mA and/or kV according to patient size 3. Use of iterative reconstruction technique Exam performed: CT scan of the abdomen and pelvis without contrast. Clinical Indication: Reason: left flank pain / Spl. Instructions: / History: Date of Service: 02/19/2021 9:04 AM. Comparison: CT abdomen and pelvis from 05/29/2020 Technique: Contiguous helical acquisitions are obtained through the abdomen and pelvis without IV con trast. Sagittal and coronal reformatted images are obtained and reviewed. CT abdomen and pelvis findings: The lung bases are essentially clear. Visualized heart is normal. Previously seen cystic lesion in th e right cardiophrenic angle is not clearly visualized. Lack of IV contrast limits evaluation of abdominal viscera, however the liver, spleen and pancreas ar e normal. Cholecystectomy. Both adrenal glands and bilateral kidneys are normal in size without hydro nephrosis or nephrolithiasis. Left superior renal pole cyst. Aorta is normal in caliber without aneur ysm. Small and large bowel loops are normal. The visualized portion of the appendix is unremarkable. Distal ureters are nondilated. Urinary bladder is decompressed and thick walled. . [Hysterectomy, no adnexal masses seen. No free or focal fluid collections or pelvic lymphadenopathy seen. Bones are no rmal] No free or focal fluid collections are identified.Bones are normal. Impression: No acute intra-abdominal or pelvic process detected. Electronically signed by: Melinda Butler MD (02/19/2021 9:54 AM) [facility]
[2021-02-19 09:59] LABS: BILIRUBIN,URINE NEG (NEG); CLARITY,URINE CLEAR; COLOR,URINE STRAW; GLUCOSE,URINE NEG (NEG); NITRITE,URINE NEG (NEG); RBC,URINE OCC /HPF (0-2); UROBILINOGEN,URINE 0.2 mg/dL (0.2 mg/dL)
[2021-02-19 10:00] LABS: AMORPHOUS SEDIMENT,UR PRESENT /HPF; BACTERIA,URINE FEW /HPF (0-FEW); SQUAMOUS EPITHELIAL CELL,UR FEW /LPF; WBC,URINE 0 /HPF (0-4)
[2021-02-19] MEDS ORDERED: methylPREDNISolone SOD SUCC PF 125 MG/2 ML VIAL. IV ONE (10:30)
[2021-02-19] MEDS ORDERED: MORPHINE SULFATE 4 MG/ML DISP.SYRIN. IV ONE (10:30)
[2021-02-19 10:38] VITALS: BP 137/57
[2021-02-19] MEDS ORDERED: OXYC-325 PO (10:50)
[2021-02-19] MEDS ORDERED: PRED50TA PO (10:50)
== END 2021-02-19 10:58 | disposition home or self-care (01) ==
LOC: ER 08:40
DX: M54.50 Low back pain, unspecified (principal); F17.210 Nicotine dependence, cigarettes, uncomplicated; Z90.49 Acquired absence of other specified parts of digestive tract; Z88.1 Allergy status to other antibiotic agents; Z90.710 Acquired absence of both cervix and uterus
CPT/HCPCS: 36415; 74176; 80053; 81001; 85025; 96361; 96374; 96375; 99284; J1885; J2270; J2405; J2930; J7030

== ENCOUNTER 2021-03-14 21:32 | Emergency (ER) | payer OTHER ==
[~2021-03-14] VITALS: Ht 162.6 cm; Wt 119.0 kg
[~2021-03-14 21:32] MED LIST changes: +OXYC-325 PO
--- NOTE | 2021-03-14 22:24 | RAD ---
Study: XR SHOULDER_RIGHT 2+ VIEWS Indication: Injury. Comparison: 04/06/2015 Findings: No acute fracture. Alignment is within normal limits. No significant arthrosis. The partially assesse d ribs are grossly intact. Impression: No acute fracture or traumatic malalignment. Electronically signed by: CHRIS MACHADO MD (03/14/2021 10:22 PM) [facility]
--- NOTE | 2021-03-14 23:35 | PHYS DOC ---
Past History Past Medical History: Anxiety, Arthritis, Cancer, Hypertension, Hypotension, Migraines Additional Past Medical Histor: CANCER RIGHT DISTAL THIGH WITH CHEMO, RADIATION AND SURGERY 19YRS AGO (LAURYN OCHOA APRN) Past Surgical History: Cholecystectomy, , Hysterectomy, Tonsillectomy, Other Additional Past Surgical Histo: right leg r/t cancer, adenoidectomy (LAURYN OCHOA APRN) Smoking: Cigarettes, Less than 1pk/day Alcohol Use: Rarely Drug Use: None (LAURYN OCHOA APRN) General Adult EDM: Chief Complaint: SHOULDER INJURY HPI: HPI: Patient is a 40-year-old female that presents today with right shoulder pain. Patient states today she was in her garage trying to get around multiple items in her garage including some patio furniture, she states she got caught up in one of the chairs and her arm got twisted up in the chair and then she had pain in her shoulder. She states she has limited range of motion due to the pain. (LAURYN OCHOA APRN) Review of Systems: Review of Systems: Constitutional: Denies fever or chills Eyes: Denies change in visual acuity HENT: Denies nasal congestion or sore throat Respiratory: Denies cough or shortness of breath Cardiovascular: Denies chest pain or edema GI: Denies abdominal pain, nausea, vomiting, bloody stools or diarrhea : Denies dysuria Musculoskeletal: Right shoulder pain Integument: Denies rash Neurologic: Denies headache, focal weakness or sensory changes Endocrine: Denies polyuria or polydipsia Lymphatic: Denies swollen glands Psychiatric: Denies depression or anxiety (LAURYN OCHOA PEDIATRIC SPORTS MEDICINE SPECIALIST) Allergies: Allergies: Allergies Coded Allergies Type Severity Reaction Last Updated Verified Cephalosporins Allergy Intermediate 01/12/21 Yes cephalexin Allergy Intermediate rash 01/12/21 No prochlorperazine Allergy Intermediate 01/12/21 Yes sargramostim Allergy Intermediate 01/12/21 Yes vancomycin Allergy Intermediate 01/12/21 No (LAURYN OCHOA APRN) Physical Exam: PE: Constitutional: Well developed, well nourished, no acute distress, non-toxic appearance. [] HENT: Normocephalic, atraumatic, bilateral external ears normal, oropharynx moist, no oral exudates, nose normal. [] Eyes: PERRLA, EOMI, conjunctiva normal, no discharge. [] Neck: Normal range of motion, no tenderness, supple, no stridor. [] Cardiovascular:Heart rate regular rhythm, no murmur [] Lungs & Thorax: Bilateral breath sounds clear to auscultation [] Abdomen: Bowel sounds normal, soft, no tenderness, no masses, no pulsatile masses. [] Skin: Warm, dry, no erythema, no rash. [] Back: No tenderness, no CVA tenderness. [] Extremities: Right shoulder tender to palpation, patient has limited range of motion due to pain, she is unable to lift her arm past the 15 to 20 degree from her waist. Radial pulses 2+ sensory is intact distal to the injury. She has no pain with passive range of motion in her elbow or her wrist. Neurologic: Alert and oriented X 3, normal motor function, normal sensory function, no focal deficits noted. [] Psychologic: Affect normal, judgement normal, mood normal. [] (LAURYN OCHOA APRN) Current Patient Data: Vital Signs: Vital Signs Date Time Temp Pulse Resp B/P (MAP) Pulse Ox O2 Delivery O2 Flow Rate FiO2 03/14/21 23:43 97.5 20 123/91 (102) 99 Room Air (LAURYN OCHOA APRN) EKG: EKG: [] (LAURYN OCHOA APRN) Radiology/Procedures: Radiology/Procedures: REASON: INJURY, fell on right shoulder, pain PROCEDURE: SHOULDER 2+V RIGHT Study: XR SHOULDER_RIGHT 2+ VIEWS Indication: Injury. Comparison: 04/06/2015 Findings: No acute fracture. Alignment is within normal limits. No significant arthrosis. The partially assessed ribs are grossly intact. Impression: No acute fracture or traumatic malalignment. Electronically signed by: CHRIS MACHADO MD (03/14/2021 10:22 PM) [facility] [] (LAURYN OCHOA APRN) Heart Score: C/O Chest Pain: N/A Risk Factors: Risk Factors: DM, Current or recent (<one month) smoker, HTN, HLP, family history of CAD, obesity. Risk Scores: Score 0 - 3: 2.5% MACE over next 6 weeks - Discharge Home Score 4 - 6: 20.3% MACE over next 6 weeks - Admit for Clinical Observation Score 7 - 10: 72.7% MACE over next 6 weeks - Early Invasive Strategies (LAURYN OCHOA APRN) Course & Med Decision Making: Course & Med Decision Making Pertinent Labs and Imaging studies reviewed. (See chart for details) [id number] patient informed that her radiological results did not show any fractures but again does not show any ligamental or cartilage issues. Patient is informed to call her primary care physician tomorrow for evaluation towards the end of the week. Patient will be given a sling but she is encouraged to not use the sling when at home to dangle her arm and allow the arm to have passive range of motion. Patient will be given oral pain medications to take. Patient verbalized understanding of calling her primary care in the morning for evalua tion sooner than next week. (LAURYN OCHOA APRN) Dragon Disclaimer: Dragon Disclaimer: This electronic medical record was generated, in whole or in part, using a voice recognition dictation system. (LAURYN OCHOA APRN) Attending Co-Sign The patient was seen and interviewed as well as examined at the bedside. The chart was reviewed. The case was discussed. Agree with the plan of care. (CHRISTY ALVAREZ DO) Departure Departure: Impression: Primary Impression: Shoulder injury Qualified Codes: S49.91XA - Unspecified injury of right shoulder and upper arm, initial encounter Disposition: HOME / SELF CARE / HOMELESS Condition: STABLE Referrals: CATRACHO SIMENTAL MD (PCP) Patient Instructions: Shoulder Pain Additional Instructions: Hydrocodone take 1 tablet every 6 hours as needed for severe pain, please use with caution do not drive or operate heavy machinery if taking this can cause drowsiness. Motrin 600 mg take 1 tablet every 6 hours as needed for mild to moderate pain, take with food may cause GI upset Wear sling while out and about but while at home leave arm out of the sling and do some passive range of motion with the shoulder to avoid frozen shoulder. Follow-up with your primary care physician tomorrow by phone to get an appointment for further management of your shoulder injury. Scripts Hydrocodone Bit/Acetaminophen (HYDROCODONE-APAP 5-325 ) 1 Each Tablet 1 TAB PO PRN Q6HRS PRN for PAIN, #20 TAB 0 Refills Prov: LAURYN OCHOA PEDIATRIC SPORTS MEDICINE SPECIALIST 03/14/21 Ibuprofen (IBUPROFEN) 600 Mg Tablet 600 MG PO PRN Q6HRS PRN for PAIN, #20 TAB Prov: LAURYN OCHOA PEDIATRIC SPORTS MEDICINE SPECIALIST 03/14/21 LAURYN OCHOA PEDIATRIC SPORTS MEDICINE SPECIALIST Mar 14, 2021 23:35 CHRISTY ALVAREZ DO Mar 16, 2021 14:24
[2021-03-14] MEDS ORDERED: HYDR-2155 PO (23:48)
[2021-03-14] MEDS ORDERED: IBUP600T16 PO (23:48)
[2021-03-15 00:19] VITALS: BP 130/89
[2021-03-15] MEDS ORDERED: KETOROLAC 60 MG/2 ML VIAL. IM ONE (00:30)
== END 2021-03-15 00:19 | disposition home or self-care (01) ==
LOC: ER 21:32
DX: S49.91XA Unspecified injury of right shoulder and upper arm, initial encounter (principal); M19.90 Unspecified osteoarthritis, unspecified site; I10 Essential (primary) hypertension; G43.909 Migraine, unspecified, not intractable, without status migrainosus; F17.210 Nicotine dependence, cigarettes, uncomplicated; Z88.1 Allergy status to other antibiotic agents; Z88.8 Allergy status to other drugs, medicaments and biological substances; X50.9XXA Other and unspecified overexertion or strenuous movements or postures, initial encounter; Y93.89 Activity, other specified; Y92.89 Other specified places as the place of occurrence of the external cause; Y99.8 Other external cause status
CPT/HCPCS: 73030; 96372; 99284; J1885

== ENCOUNTER 2021-04-15 10:11 | Emergency (ER) | payer OTHER ==
[~2021-04-15] VITALS: Ht 162.6 cm; Wt 124.0 kg
[~2021-04-15 10:11] MED LIST changes: +HYDR-2155 PO; +IBUP600T16 PO
[2021-04-15] MEDS ORDERED: oxyCODONE/APAP 5/325 1 TAB TABLET PO ONE (10:45)
--- NOTE | 2021-04-15 10:56 | PHYS DOC ---
Past History Past Medical History: Anxiety, Arthritis, Cancer, Hypertension, Hypotension, Migraines Additional Past Medical Histor: CANCER RIGHT DISTAL THIGH WITH CHEMO, RADIATION AND SURGERY 19YRS AGO Past Surgical History: Cancer Surgery, Cholecystectomy, , Hysterectomy, Tonsillectomy Additional Past Surgical Histo: Right leg surgery, x2 Smoking: Cigarettes, Less than 1pk/day Alcohol Use: Occasionally Drug Use: None General Adult EDM: Chief Complaint: BACK INJURY HPI: HPI: 40-year-old female presents with mid back pain. Patient was walking and slipped this ago. She landed flat on her back. She has chronic leg pain for which she takes [place] 5/325 every day. She took 1 of these and is unhappy with the protocol. She is also on orphenadrine. She denies hitting her head or loss of consciousness. Review of Systems: Review of Systems: Constitutional: Denies fever or chills Eyes: Denies change in visual acuity HENT: Denies nasal congestion or sore throat Respiratory: Denies cough or shortness of breath Cardiovascular: Denies chest pain or edema GI: Denies abdominal pain, nausea, vomiting, bloody stools or diarrhea : Denies dysuria Musculoskeletal: Mid back pain Integument: Denies rash Neurologic: Denies headache, focal weakness or sensory changes Endocrine: Denies polyuria or polydipsia Lymphatic: Denies swollen glands Psychiatric: Denies depression or anxiety Current Medications: Current Meds: Current Medications Medications (Trade) Dose Ordered Sig/Judy Start Time Stop Time Status Last Admin Dose Admin Oxycodone/ Acetaminophen (Percocet 5/325) 1 tab 1X ONCE 04/15/21 10:45 04/15/21 10:46 DC 04/15/21 10:45 1 TAB Allergies: Allergies: Allergies Coded Allergies Type Severity Reaction Last Updated Verified Cephalosporins Allergy Intermediate 04/15/21 Yes cephalexin Allergy Intermediate rash 04/15/21 No prochlorperazine Allergy Intermediate 04/15/21 Yes sargramostim Allergy Intermediate 04/15/21 Yes vancomycin Allergy Intermediate 04/15/21 No Physical Exam: PE: Constitutional: Well developed, well nourished, no acute distress, non-toxic appearance. [] HENT: Normocephalic, atraumatic, bilateral external ears normal, oropharynx moist, no oral exudates, nose normal. [] Eyes: PERRLA, EOMI, conjunctiva normal, no discharge. [] Neck: Normal range of motion, no tenderness, supple, no stridor. [] Cardiovascular: Heart rate regular rhythm, no murmur [] Lungs & Thorax: Bilateral breath sounds clear to auscultation [] Abdomen: Bowel sounds normal, soft, no tenderness, no masses, no pulsatile masses. [] Skin: Warm, dry, no erythema, no rash. [] Back: Tenderness of the left paraspinal muscles T8 to T10 [] Extremities: No tenderness, no cyanosis, no clubbing, ROM intact, no edema. [] Neurologic: Alert and oriented X 3, normal motor function, normal sensory function, no focal deficits noted. [] Psychologic: Affect normal, judgement normal, mood normal. [] Current Patient Data: Vital Signs: Vital Signs Date Time Temp Pulse Resp B/P (MAP) Pulse Ox O2 Delivery O2 Flow Rate FiO2 04/15/21 10:45 Room Air 04/15/21 10:20 97.9 105 18 150/104 (119) 99 EKG: EKG: [] Radiology/Procedures: Radiology/Procedures: [] Heart Score: C/O Chest Pain: N/A Risk Factors: Risk Factors: DM, Current or recent (<one month) smoker, HTN, HLP, family history of CAD, obesity. Risk Scores: Score 0 - 3: 2.5% MACE over next 6 weeks - Discharge Home Score 4 - 6: 20.3% MACE over next 6 weeks - Admit for Clinical Observation Score 7 - 10: 72.7% MACE over next 6 weeks - Early Invasive Strategies Course & Med Decision Making: Course & Med Decision Making Pertinent Labs and Imaging studies reviewed. (See chart for details) I do not believe imaging is required for the patient. She does not have any bon y tenderness over the spinous processes. She did not land on anything. I will give her Percocet 5 in the ER to see if this helps with her pain. This is helped with her pain. I will give her 2 days worth of pills for home. She is stable for discharge at this time. [] Dragon Disclaimer: Laly Disclaimer: This electronic medical record was generated, in whole or in part, using a voice recognition dictation system. Departure Departure: Impression: Primary Impression: Thoracic back pain Additional Impression: Fall from slip, trip, or stumble Disposition: 01 HOME / SELF CARE / HOMELESS Condition: STABLE Referrals: CATRACHO SIMENTAL MD (PCP) Patient Instructions: Contusion, [id number] Scripts Oxycodone HCl/Acetaminophen (Percocet 5-325 mg Tablet) 1 Each Tablet 1 TAB PO PRN BID PRN for PAIN MDD 2 Tablet(s) for 5 Days, #10 TAB 0 Refills Prov: CHRISTY ALVAREZ DO 04/15/21 CHRISTY ALVAREZ DO Apr 15, 2021 10:56
[2021-04-15] MEDS ORDERED: OXYC-325 PO (11:35)
== END 2021-04-15 11:45 | disposition home or self-care (01) ==
LOC: ER 10:11
DX: M54.6 Pain in thoracic spine (principal); M19.90 Unspecified osteoarthritis, unspecified site; I10 Essential (primary) hypertension; G43.909 Migraine, unspecified, not intractable, without status migrainosus; F17.210 Nicotine dependence, cigarettes, uncomplicated; Z90.49 Acquired absence of other specified parts of digestive tract; Z98.890 Other specified postprocedural states; Z90.710 Acquired absence of both cervix and uterus; Z88.1 Allergy status to other antibiotic agents; Z88.8 Allergy status to other drugs, medicaments and biological substances; W01.0XXA Fall on same level from slipping, tripping and stumbling without subsequent striking against object, initial encounter; Y93.01 Activity, walking, marching and hiking; Y92.89 Other specified places as the place of occurrence of the external cause; Y99.8 Other external cause status
CPT/HCPCS: 99284

== ENCOUNTER 2021-05-05 18:51 | Emergency (ER) | payer OTHER ==
[~2021-05-05] VITALS: Ht 162.6 cm; Wt 120.0 kg
[2021-05-05 19:48] LABS: BASO # 0.1 x10^3/uL (0.0-0.2); BASO % 1 % (0-3); EOS # 0.3 x10^3/uL (0.0-0.7); EOS % 3 % (0-3); HEMATOCRIT 37.4 % (36.0-47.0); HEMOGLOBIN 12.8 g/dL (12.0-15.5); LYMPH # 2.5 x10^3/uL (1.0-4.8); LYMPH % 32 % (24-48); MEAN CORPUSCULAR HEMOGLOBIN 30 pg (25-35); MEAN CORPUSCULAR HGB CONC 34 g/dL (31-37); MEAN CORPUSCULAR VOLUME 87 fL (79-100); MONO # 0.6 x10^3/uL (0.0-1.1); MONO % 8 % (0-9); NEUT # 4.3 x10^3uL (1.8-7.7); NEUT % 55 % (31-73); PLATELET COUNT 310 x10^3/uL (140-400); RED BLOOD COUNT 4.32 x10^6/uL (3.50-5.40); RED CELL DISTRIBUTION WIDTH 13.4 % (11.5-14.5); WHITE BLOOD COUNT 7.8 x10^3/uL (4.0-11.0)
[2021-05-05 19:50] LABS: CALCIUM 8.8 mg/dL (8.5-10.1); CREATININE 0.8 mg/dL (0.6-1.0); GFR 78.7; POTASSIUM 3.8 mmol/L (3.5-5.1)
[2021-05-05 19:57] LABS: ALBUMIN 3.6 g/dL (3.4-5.0); ALBUMIN/GLOBULIN RATIO 1.1 (1.0-1.7); TOTAL BILIRUBIN 0.2 mg/dL (0.2-1.0)
--- NOTE | 2021-05-05 20:01 | RAD ---
EXAM: CHEST ONE VIEW. HISTORY: Chest pain. COMPARISON: 08/27/2020. FINDINGS: A frontal view of the chest is obtained. There are no confluent infiltrates. There is no pneumothorax or pleural effusion. The heart is not en larged. IMPRESSION: 1. No confluent infiltrates. Electronically signed by: Shawn Tellez MD (05/05/2021 7:58 PM) [facility]
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
[2021-05-05 21:12] LABS: BACTERIA,URINE FEW /HPF (0-FEW); CLARITY,URINE CLEAR; COLOR,URINE YELLOW; GLUCOSE,URINE NEG (NEG); NITRITE,URINE NEG (NEG); RBC,URINE 0 /HPF (0-2); SQUAMOUS EPITHELIAL CELL,UR MOD /LPF; UROBILINOGEN,URINE 0.2 mg/dL (0.2 mg/dL); WBC,URINE 0 /HPF (0-4)
[2021-05-05 21:26] VITALS: BP 154/94
--- NOTE | 2021-05-06 00:33 | EKG ---
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
== END 2021-05-05 21:27 | disposition home or self-care (01) ==
LOC: ER 18:51
DX: F41.9 Anxiety disorder, unspecified (principal); R07.89 Other chest pain; M19.90 Unspecified osteoarthritis, unspecified site; I10 Essential (primary) hypertension; G43.909 Migraine, unspecified, not intractable, without status migrainosus; F17.210 Nicotine dependence, cigarettes, uncomplicated; Z88.1 Allergy status to other antibiotic agents; Z88.8 Allergy status to other drugs, medicaments and biological substances
CPT/HCPCS: 36415; 71045; 80053; 81001; 81025; 84484; 85025; 96374; 99284; J2060; 99285

== ENCOUNTER 2021-05-17 16:11 | Emergency (ER) | payer OTHER ==
[~2021-05-17] VITALS: Ht 162.6 cm; Wt 120.0 kg
[2021-05-17 16:25] VITALS: BP 154/101
[2021-05-17] MEDS ORDERED: MORPHINE SULFATE 4 MG/ML DISP.SYRIN. IM ONE (16:45)
--- NOTE | 2021-05-17 16:49 | PHYS DOC ---
Past History Past Medical History: Anxiety, Arthritis, Cancer, Hypertension, Hypotension, Migraines Additional Past Medical Histor: CANCER RIGHT DISTAL THIGH WITH CHEMO, RADIATION AND SURGERY 19YRS AGO Past Surgical History: Cholecystectomy, , Hysterectomy, Tonsillectomy, Other Additional Past Surgical Histo: CANCER SURGERY ON LEG Smoking: Cigarettes, Less than 1pk/day Alcohol Use: None Drug Use: None General Adult EDM: Chief Complaint: DENTAL PROBLEM HPI: HPI: Patient is a 41-year-old female who presents to the emergency department today for dental pain. Patient reports that she has a broken right upper tooth she called her dentist yesterday and has an appointment and they started her on antibiotic yesterday. Patient reports that she is taking hydrocodone and using Orajel at home but is not helping with her pain. She rates her pain 10 out of 10. She denies any fevers, shortness of breath, difficulty swallowing. Review of Systems: Review of Systems: Constitutional: See HPI HENT: See HPI Respiratory: See HPI Allergies: Allergies: Allergies Coded Allergies Type Severity Reaction Last Updated Verified Cephalosporins Allergy Intermediate 05/05/21 Yes cephalexin Allergy Intermediate rash 05/05/21 No prochlorperazine Allergy Intermediate 05/05/21 Yes sargramostim Allergy Intermediate 05/05/21 Yes vancomycin Allergy Intermediate 05/05/21 No Physical Exam: PE: Constitutional: Well developed, well nourished, no acute distress, non-toxic appearance. [] HENT: Normocephalic, atraumatic, bilateral external ears normal, broken third tooth, mild erythema surrounding tooth, uvula midline, no trismus oropharynx moist, no oral exudates, nose normal. [] Eyes: PERRL, EOMI, conjunctiva normal, no discharge. [] Neck: Normal range of motion, no stridor Cardiovascular: Normal peripheral perfusion Lungs & Thorax: Normal work of breathing, no tachypnea Abdomen: Obese, soft Skin: Warm, dry, no erythema, no rash. [] Back: Normal range of motion Extremities: No tenderness, no cyanosis, no clubbing, ROM intact, no edema. [] Neurologic: Alert and oriented X 3, normal motor function, normal sensory function, no focal deficits noted. [] Psychologic: Affect normal, judgement normal, mood normal. [] EKG: EKG: [] Radiology/Procedures: Radiology/Procedures: [] Heart Score: C/O Chest Pain: N/A Risk Factors: Risk Factors: DM, Current or recent (<one month) smoker, HTN, HLP, family history of CAD, obesity. Risk Scores: Score 0 - 3: 2.5% MACE over next 6 weeks - Discharge Home Score 4 - 6: 20.3% MACE over next 6 weeks - Admit for Clinical Observation Score 7 - 10: 72.7% MACE over next 6 weeks - Early Invasive Strategies Course & Med Decision Making: Course & Med Decision Making Pertinent Labs and Imaging studies reviewed. (See chart for details) [] Patient presents to the emergency department for dental pain. Patient took a hydrocodone and has used Orajel prior to arrival. She is also on antibiotic prescribed by her dentist. Patient was given a one-time dose of pain medication in the emergency department. She is advised to continue using Orajel as d irected and finish her antibiotic. Patient advised to follow-up with her dentist as scheduled. I discussed with patient all findings and diagnostic testing as well as the need to follow-up with PCP for further evaluation and treatment or return to the ER if any new or worsening symptoms. Strict return precautions were also discussed at length. Patient voiced understanding and a greement with the plan. Patient is hemodynamically stable at the time of disposition. Laly Disclaimer: Laly Disclaimer: This electronic medical record was generated, in whole or in part, using a voice recognition dictation system. Departure Departure: Impression: Primary Impression: Pain, dental Disposition: HOME / SELF CARE / HOMELESS Condition: GOOD Referrals: CATRACHO SIMENTAL MD (PCP) Patient Instructions: Dental Pain Additional Instructions: You were seen in the emergency department today for dental pain. You were given a dose of pain medication in the emergency department. Please continue using Orajel at home. Make sure you start and finish her antibiotic completely. Follow-up with your dentist as previously scheduled. Return to the emergency department if you have worsening of your symptoms, high fevers refractory to treatment, intractable nausea or vomiting, inability to maintain your secretions, shortness of breath. ADALBERTO HUFF APRN May 17, 2021 16:49
== END 2021-05-17 17:10 | disposition home or self-care (01) ==
LOC: ER 16:11
DX: K08.89 Other specified disorders of teeth and supporting structures (principal); M19.90 Unspecified osteoarthritis, unspecified site; I10 Essential (primary) hypertension; G43.909 Migraine, unspecified, not intractable, without status migrainosus; F17.210 Nicotine dependence, cigarettes, uncomplicated; Z88.1 Allergy status to other antibiotic agents; Z88.8 Allergy status to other drugs, medicaments and biological substances
CPT/HCPCS: 96372; 99283; J2270

== ENCOUNTER 2021-06-23 12:29 | Emergency (ER) | payer OTHER ==
[~2021-06-23] VITALS: Ht 162.6 cm; Wt 120.0 kg
[2021-06-23] MEDS ORDERED: KETOROLAC 30 MG/ML VIAL. IVP ONE (13:00)
[2021-06-23] MEDS ORDERED: ORPHENADRINE CITRATE 60 MG/2 ML VIAL. IM ONE (13:00)
[2021-06-23] MEDS ORDERED: LIDOCAINE (700MG/PATCH) PATCH. TD ONE (13:00)
--- NOTE | 2021-06-23 13:08 | PHYS DOC ---
Past History Past Medical History: Anxiety, Arthritis, Cancer, Hypertension, Migraines Additional Past Medical Histor: CANCER RIGHT DISTAL THIGH WITH CHEMO, RADIATION AND SURGERY 2002 Past Surgical History: Cholecystectomy, , Hysterectomy, Tonsillectomy, Other Additional Past Surgical Histo: CANCER SURGERY ON LEG Smoking: Cigarettes, Less than 1pk/day Alcohol Use: Rarely Drug Use: None General Adult EDM: Chief Complaint: LOWER BACK PAIN OR INJURY HPI: HPI: Patient is a 41 year old female with history of low back pain who presents with exacerbation of her low back pain. Patient rates her pain 10/10 nonradiating but left side greater than right. She states that she often has "flareups" of low back pain, but today when she was walking her dog she got "tangled up." And attempting to untangle herself from the dog's leash, she noted acute pain. Patient denies radiation to her lower extremities, lower extremity paresthesias, saddle anesthesia, fall/trauma, IV drug use. Review of Systems: Review of Systems: ROS negative or noncontributory except as mentioned in HPI. Current Medications: Current Meds: Current Medications Medications (Trade) Dose Ordered Sig/Judy Start Time Stop Time Status Last Admin Dose Admin Ketorolac Tromethamine (Toradol 30mg Vial) 30 mg 1X ONCE 06/23/21 13:00 06/23/21 13:01 DC Lidocaine (Lidoderm) 2 patch 1X ONCE 06/23/21 13:00 06/23/21 13:01 DC Orphenadrine Citrate (Norflex) 60 mg 1X ONCE 06/23/21 13:00 06/23/21 13:01 DC Allergies: Allergies: Allergies Coded Allergies Type Severity Reaction Last Updated Verified Cephalosporins Allergy Intermediate 05/05/21 Yes cephalexin Allergy Intermediate rash 05/05/21 No prochlorperazine Allergy Intermediate 05/05/21 Yes sargramostim Allergy Intermediate 05/05/21 Yes vancomycin Allergy Intermediate 05/05/21 No Physical Exam: PE: Constitutional: Well developed, well nourished, no acute distress, non-toxic appearance. HENT: Normocephalic, atraumatic, bilateral external ears normal, nose normal. Eyes: EOMI, conjunctiva normal, no discharge. Neck: Normal range of motion, no stridor. Skin: Warm, dry, no erythema, no rash. Back: No step-off, no midline tenderness, paraspinal lumbar tenderness appreciated L>R. Extremities: No tenderness, no cyanosis, no clubbing, ROM intact, no edema. Neurologic: Alert and oriented x4, normal motor function, normal sensory function, no focal deficits noted. Current Patient Data: Vital Signs: Vital Signs Date Time Temp Pulse Resp B/P (MAP) Pulse Ox O2 Delivery O2 Flow Rate FiO2 06/23/21 14:00 76 16 162/92 (115) 99 Room Air 06/23/21 13:56 16 06/23/21 12:37 98.0 70 16 154/101 (118) 99 Room Air Heart Score: C/O Chest Pain: No Course & Med Decision Making: Course & Med Decision Making Pertinent Labs and Imaging studies reviewed. (See chart for details) Patient is acute exacerbation of chronic low back pain treated today with IM Toradol, IM Norflex and topical lidocaine patch. She reports minimal if any improvement with these medications. She does take 4 hydrocodone tablets daily for chronic pain related to cancer treatment on her thigh. Patient is requesting narcotic pain medication. I advised the patient that narcotic pain medication is typically not effective for low back pain such as the pain she is experiencing. She does still insist that she would like to try this duration of morphine. I gave her 2 morphine IM. Patient is happy with administered medications and is willing to go home. Follow-up with pain management is suggested. Patient should call whoever prescribes her hydrocodone for any acute need for further analgesics. Return precautions were provided. Patient understands and is agreeable to discharge plan. Laly Disclaimer: Laly Disclaimer: This electronic medical record was generated, in whole or in part, using a voice recognition dictation system. Departure Departure: Impression: Primary Impression: Low back pain Qualified Codes: M54.50 - Low back pain, unspecified Additional Impression: Elevated blood pressure reading Disposition: HOME / SELF CARE / HOMELESS Condition: IMPROVED Referrals: CATRACHO SIMENTAL MD (PCP) WENDY ORDOÑEZ MD Patient Instructions: Back Injury Prevention, [id number], Back Pain, Adult, [id number] Additional Instructions: EMERGENCY DEPARTMENT GENERAL DISCHARGE INSTRUCTIONS Thank you for coming to [facility] (ED) today and trusting us with you care. We trust that you had a positive experience in our Emergency Department. If you wish to speak to the department management, you may call the director at [phone]. YOUR FOLLOW UP INSTRUCTIONS ARE FOLLOWS: 1. Follow up with your primary care doctor. If you do not have a primary doctor, please ask for a resource list of physicians or clinics that may be able to assist you with follow up care. 2. The emergency provider has interpreted your imaging studies, if any were ordered. The radiology application integration specialist also reviewed them. If there is a change in the findings, you will be notified in 48 hours when at all possible. 3. If a lab test or culture has been done, your results will be reviewed and you will be notified if you need a change in treatment. 4. Follow instructions verbalized to you and refer to the printouts if needed. ADDITIONAL INSTRUCTIONS AND INFORMATION: 1. Your care today has been supervised by a physician who is specially trained in emergency care. Many problems require more than one evaluation for a complete diagnosis and treatment. We recommend that you schedule your follow up appointment as recommended to ensure complete treatment of you illness or injury. If you are unable to obtain follow up care and continue to have a problem, or if your condition worsens, we recommend that you return to the ED. 2. We are not able to safely determine your condition over the phone nor are we able to give sound medical advice over the phone. For these safety reasons, if you call for medical advice we will ask you to come to the ED for further evaluation. 3. If you have any questions regarding these discharge instructions please call the ED at [phone]. SAFETY INFORMATION: In the interest of safety, wellness, and injury prevention; we encourage you to wear your seat belt, if you smoke; quite smoking, and we encourage family to use a protective helmet for bicycling and other sporting events that present an increased risk for head injury. IF YOUR SYMPTOMS WORSEN OR NEW SYMPTOMS DEVELOP, OR YOU HAVE CONCERNS ABOUT YOUR CONDITION; OR IF YOUR CONDITION WORSENS WHILE YOU ARE WAITING FOR YOUR FOLLOW UP APPOINTMENT; EITHER CONTACT YOUR PRIMARY CARE DOCTOR, THE PHYSICIAN WHOSE NAME AND NUMBER YOU WERE GIVEN, OR RETURN TO THE ED IMMEDIATELY. Scripts Naproxen (NAPROXEN) 500 Mg Tablet 1 TAB PO Q12HR for pain, #20 TAB 0 Refills Prov: YUNIER STRONG 4/14/22 Orphenadrine Citrate (ORPHENADRINE CITRATE) 100 Mg Tablet.er 1 TAB PO Q12HR for muscle pain, #20 TAB 0 Refills Prov: YUNIER STRONG 06/23/21 YUNIER STRONG Jun 23, 2021 13:08
[2021-06-23] MEDS ORDERED: NAPR-514 PO (13:25)
[2021-06-23] MEDS ORDERED: ORPH-16 PO (13:25)
[2021-06-23] MEDS ORDERED: KETOROLAC 30 MG/ML VIAL. IM ONE (13:45)
[2021-06-23 14:00] VITALS: BP 162/92
[2021-06-23] MEDS ORDERED: MORPHINE SULFATE 2 MG/ML DISP.SYRIN. IM ONE (14:00)
== END 2021-06-23 14:06 | disposition home or self-care (01) ==
LOC: ER 12:29
DX: M54.59 Other low back pain (principal); I10 Essential (primary) hypertension; F41.9 Anxiety disorder, unspecified; M19.90 Unspecified osteoarthritis, unspecified site; G43.909 Migraine, unspecified, not intractable, without status migrainosus; F17.210 Nicotine dependence, cigarettes, uncomplicated; Z88.1 Allergy status to other antibiotic agents; Z88.8 Allergy status to other drugs, medicaments and biological substances
CPT/HCPCS: 96372; 99284; J1885; J2270; J2360

== ENCOUNTER 2021-07-11 13:46 | Emergency (ER) | payer OTHER ==
[~2021-07-11] VITALS: Ht 162.6 cm; Wt 120.0 kg
[~2021-07-11 13:46] MED LIST changes: +NAPR-514 PO; +ORPH-16 PO
[2021-07-11 14:06] VITALS: BP 146/97
[2021-07-11] MEDS ORDERED: predniSONE 20 MG TABLET PO ONE (14:30)
[2021-07-11] MEDS ORDERED: PRED50TA PO (14:31)
--- NOTE | 2021-07-11 14:32 | PHYS DOC ---
Past History Past Medical History: Anxiety, Arthritis, Cancer, Hypertension, Migraines Additional Past Medical Histor: CANCER RIGHT DISTAL THIGH WITH CHEMO, RADIATION AND SURGERY 2002 Past Surgical History: Cholecystectomy, , Hysterectomy, Tonsillectomy, Other Additional Past Surgical Histo: CANCER SURGERY ON LEG Smoking: Cigarettes, Less than 1pk/day Alcohol Use: Occasionally Drug Use: None General Adult EDM: Chief Complaint: HIP PAIN HPI: HPI: 41-year-old female presents with right low back/hip pain. The patient was just getting ready for the day, putting on her clothes when she started to have severe sharp pain in her low back area. The patient has chronic pain in her right leg but is usually distal near her knee. She takes orphenadrine and hydrocodone for this daily. This pain is in a different location in a different character. She denies any numbness or tingling down her leg. She does not understand why it hurts so much with so little activity. She has no other complaints this time. Review of Systems: Review of Systems: Constitutional: Denies fever or chills Eyes: Denies change in visual acuity HENT: Denies nasal congestion or sore throat Respiratory: Denies cough or shortness of breath Cardiovascular: Denies chest pain or edema GI: Denies abdominal pain, nausea, vomiting, bloody stools or diarrhea : Denies dysuria Musculoskeletal: Right low back/hip pain Integument: Denies rash Neurologic: Denies headache, focal weakness or sensory changes Endocrine: Denies polyuria or polydipsia Lymphatic: Denies swollen glands Psychiatric: Denies depression or anxiety Allergies: Allergies: Allergies Coded Allergies Type Severity Reaction Last Updated Verified Cephalosporins Allergy Intermediate 07/11/21 Yes cephalexin Allergy Intermediate rash 07/11/21 No prochlorperazine Allergy Intermediate 07/11/21 Yes sargramostim Allergy Intermediate 07/11/21 Yes vancomycin Allergy Intermediate 07/11/21 No Physical Exam: PE: Constitutional: Well developed, well nourished, morbidly obese, no acute distress, non-toxic appearance. [] HENT: Normocephalic, atraumatic, bilateral external ears normal, oropharynx moist, no oral exudates, nose normal. [] Eyes: PERRLA, EOMI, conjunctiva normal, no discharge. [] Neck: Normal range of motion, no tenderness, supple, no stridor. [] Cardiovascular:Heart rate regular rhythm, no murmur [] Lungs & Thorax: Bilateral breath sounds clear to auscultation [] Abdomen: Bowel sounds normal, soft, no tenderness, no masses, no pulsatile masses. [] Skin: Warm, dry, no erythema, no rash. [] Back: Tenderness over the right sacroiliac joint [] Extremities: No tenderness, no cyanosis, no clubbing, ROM intact, no edema. [] Neurologic: Alert and oriented X 3, normal motor function, normal sensory function, no focal deficits noted. [] Psychologic: Affect normal, judgement normal, mood normal. [] Current Patient Data: Vital Signs: Vital Signs Date Time Temp Pulse Resp B/P (MAP) Pulse Ox O2 Delivery O2 Flow Rate FiO2 07/11/21 14:06 97.9 84 18 146/97 (113) 99 Room Air EKG: EKG: [] Radiology/Procedures: Radiology/Procedures: [] Heart Score: C/O Chest Pain: N/A Risk Factors: Risk Factors: DM, Current or recent (<one month) smoker, HTN, HLP, family history of CAD, obesity. Risk Scores: Score 0 - 3: 2.5% MACE over next 6 weeks - Discharge Home Score 4 - 6: 20.3% MACE over next 6 weeks - Admit for Clinical Observation Score 7 - 10: 72.7% MACE over next 6 weeks - Early Invasive Strategies Course & Med Decision Making: Course & Med Decision Making Pertinent Labs and Imaging studies reviewed. (See chart for details) The patient appears to have right sacroiliac pain. She is already on hydrocodone and muscle relaxer. I will add 4 days of prednisone. We will give the first dose in the emergency room. I stressed to her the importance of p casie mechanics to help prevent this. She is stable for discharge at this time. [] Dragon Disclaimer: Laly Disclaimer: This electronic medical record was generated, in whole or in part, using a voice recognition dictation system. Departure Departure: Impression: Primary Impression: Sacroiliac joint pain Disposition: HOME / SELF CARE / HOMELESS Condition: STABLE Referrals: CATRACHO SIMENTAL MD (PCP) Patient Instructions: Sacroiliac Joint Dysfunction Scripts Prednisone (PREDNISONE) 50 Mg Tablet 1 TAB PO DAILY for sacroiliac pain for 3 Days, #3 TAB Prov: CHRISTY ALVAREZ DO 07/11/21 CHRISTY ALVAREZ DO July 11, 2021 14:32
[2021-07-11] MEDS ORDERED: HYDROcodone/APAP 5/325MG 1 TAB TABLET ONE (14:34)
[2021-07-11] MEDS ORDERED: HYDROcodone/APAP 7.5/325MG 1 TAB TABLET PO ONE (14:45)
[2021-07-11] MEDS ORDERED: OXYC1TAB15 PO (14:52)
== END 2021-07-11 14:54 | disposition home or self-care (01) ==
LOC: ER 13:46
DX: M53.3 Sacrococcygeal disorders, not elsewhere classified (principal); F41.9 Anxiety disorder, unspecified; M19.90 Unspecified osteoarthritis, unspecified site; I10 Essential (primary) hypertension; G43.909 Migraine, unspecified, not intractable, without status migrainosus; F17.210 Nicotine dependence, cigarettes, uncomplicated; E66.01 Morbid (severe) obesity due to excess calories; Z68.42 Body mass index [BMI] 45.0-49.9, adult; Z90.49 Acquired absence of other specified parts of digestive tract; Z98.890 Other specified postprocedural states; Z90.710 Acquired absence of both cervix and uterus; Z88.1 Allergy status to other antibiotic agents; Z88.8 Allergy status to other drugs, medicaments and biological substances
CPT/HCPCS: 99283; J7512

== ENCOUNTER 2021-07-11 21:53 | Emergency (ER) | payer OTHER ==
[~2021-07-11] VITALS: Ht 162.6 cm; Wt 118.0 kg
[~2021-07-11 21:53] MED LIST changes: +OXYC1TAB15 PO
[2021-07-11 21:55] VITALS: BP 147/99
[2021-07-11] MEDS ORDERED: DIPHTH,PERTUSS(ACELL),TET TOX 0.5 ML DISP.SYRIN. VAX IM ONE (22:30)
[2021-07-11] MEDS ORDERED: DOXYCYCLINE HYCLATE 100 MG TABLET PO ONE (22:30)
--- NOTE | 2021-07-11 22:30 | PHYS DOC ---
Past History Past Medical History: Anxiety, Arthritis, Cancer, Hypertension, Migraines Additional Past Medical Histor: CANCER RIGHT DISTAL THIGH WITH CHEMO, RADIATION AND SURGERY 2002 Past Surgical History: Cholecystectomy, , Hysterectomy, Tonsillectomy, Other Additional Past Surgical Histo: CANCER SURGERY ON LEG Smoking: Cigarettes, Less than 1pk/day Alcohol Use: Occasionally Drug Use: None Adult General Chief Complaint Chief Complaint: HEAD INJURY/TRAUMA HPI HPI Patient is a 41-year-old female, not up-to-date on tetanus who had a small cyst on the back of her head and popped it when she laid back in bed thinking her pillow was there but it was not. Denies any headache, pain at all, loss of consciousness, neck pain, pain or trouble swallowing. States she was worried she needs an antibiotic. Review of Systems Review of Systems Review of systems otherwise unremarkable except noted in HPI Allergies Allergies Allergies Coded Allergies Type Severity Reaction Last Updated Verified Cephalosporins Allergy Intermediate 07/11/21 Yes cephalexin Allergy Intermediate rash 07/11/21 No prochlorperazine Allergy Intermediate 07/11/21 Yes sargramostim Allergy Intermediate 07/11/21 Yes vancomycin Allergy Intermediate 07/11/21 No Physical Exam Physical Exam Constitutional: Well developed, well nourished, no acute distress, non-toxic appearance. [] HENT: Small half centimeter abrasion/laceration, bleeding controlled, no need for repair Eyes: PERRLA, EOMI, conjunctiva normal, no discharge. [] Neck: Normal range of motion, no tenderness, Back: No tenderness Neurologic: Alert and oriented X 3, normal motor function, normal sensory function, able to sit, stand and walk without issue, no focal deficits noted. [] Psychologic: Affect normal, judgement normal, mood normal. [] EKG EKG [] Radiology/Procedures Radiology/Procedures [] Heart Score C/O Chest Pain: No Risk Factors: Risk Factors: DM, Current or recent (<one month) smoker, HTN, HLP, family history of CAD, obesity. Risk Scores: Risk Factors: DM, Current or recent (<one month) smoker, HTN, HLP, family history of CAD, obesity. Course & Med Decision Making Course & Med Decision Making Patient is a 41-year-old female who presents with posterior scalp lesion Updated tetanus. Cleaned wound. Advised on wound care at home. Given dose of antibiotics at patient's request. Advised to follow-up with primary care physician tomorrow. Gave return precautions to the ED. Patient states she has hydrocodone at home and does not need the pain medicine. Patient grateful, verbalized understanding and agreed with plan of discharge. [] Dragon Disclaimer Dragon Disclaimer This electronic medical record was generated, in whole or in part, using a voice recognition dictation system. Departure Departure: Impression: Primary Impression: Scalp laceration Disposition: HOME / SELF CARE / HOMELESS Condition: STABLE Referrals: CATRACHO SIMENTAL MD (PCP) Patient Instructions: Wound Care, [id number] Additional Instructions: Thank you for coming into the emergency department tonight and allowing us to take care of you. Please read the attached information carefully to go over things we discussed. Please keep your wound clean and dry as we discussed. Your tetanus was updated. You are given a dose of antibiotics in the emergency department. Please follow-up in the morning with your primary care physician update on your ED visit and set up a follow-up appointment. Please come back with new or concerning symptoms as we discussed. Please continue to use Tylenol, ibuprofen as needed and your hydrocodone as prescribed. CRISTIANO COLLADO MD July 11, 2021 22:30
== END 2021-07-11 23:00 | disposition home or self-care (01) ==
LOC: ER 21:53
DX: S01.01XA Laceration without foreign body of scalp, initial encounter (principal); F41.9 Anxiety disorder, unspecified; M19.90 Unspecified osteoarthritis, unspecified site; I10 Essential (primary) hypertension; G43.909 Migraine, unspecified, not intractable, without status migrainosus; F17.210 Nicotine dependence, cigarettes, uncomplicated; Z88.1 Allergy status to other antibiotic agents; Z88.8 Allergy status to other drugs, medicaments and biological substances; X58.XXXA Exposure to other specified factors, initial encounter; Y93.89 Activity, other specified; Y92.89 Other specified places as the place of occurrence of the external cause; Y99.8 Other external cause status
CPT/HCPCS: 90471; 90715; 99283

== ENCOUNTER 2021-07-30 14:15 | Observation (INO) | payer OTHER ==
[~2021-07-30] VITALS: Ht 162.6 cm; Wt 122.4 kg
--- NOTE | 2021-07-30 14:37 | RAD ---
Exam Date: 07/30/2021 2:25 PM XR CHEST 1V Indication: Reason: CP / Spl. Instructions: / History: . Comparison: May 05, 2021 FINDINGS/ IMPRESSION: Minimal left basilar scarring versus atelectasis is noted. The cardiac silhouette and pulmonary vasculature are within normal limits. There is no focal consolidation, pleural effusion or pneumothorax. The visualized osseous structures are intact. Electronically signed by: Kingston Lema MD (07/30/2021 2:34 PM) [id number]
--- NOTE | 2021-07-30 14:42 | PHYS DOC ---
Past History Past Medical History: Anxiety, Arthritis, Cancer, Hypertension, Migraines Additional Past Medical Histor: CANCER RIGHT DISTAL THIGH WITH CHEMO, RADIATION AND SURGERY 2002 Past Surgical History: Cholecystectomy, , Hysterectomy, Tonsillectomy, Other Additional Past Surgical Histo: CANCER SURGERY ON LEG Smoking: Cigarettes, Less than 1pk/day Alcohol Use: Occasionally Drug Use: None General Adult EDM: Chief Complaint: CHEST PAIN HPI: HPI: 41-year-old female presents with chest pain. She states that it started after she woke up this morning. This was around 7:30 AM. It has gotten worse since then. The last time she ate was 1030. This did not seem to have an impact on her pain. She describes a central heaviness radiating through to her shoulder blades. It is a 7 out of 10. The patient was given aspirin, nitro, and morphine in the ambulance in route. None of this seemed to help. The patient is concerned about her daughter who came into the hospital at the same time and another ambulance. She mentions some sort of conflict between them today. Patient denies fever or chills. She does not have a cardiac history other than hypertension. Review of Systems: Review of Systems: Constitutional: Denies fever or chills Eyes: Denies change in visual acuity HENT: Denies nasal congestion or sore throat Respiratory: Denies cough or shortness of breath Cardiovascular: Chest pain GI: Denies abdominal pain, nausea, vomiting, bloody stools or diarrhea : Denies dysuria Musculoskeletal: Denies back pain or joint pain Integument: Denies rash Neurologic: Denies headache, focal weakness or sensory changes Endocrine: Denies polyuria or polydipsia Lymphatic: Denies swollen glands Psychiatric: anxiety Allergies: Allergies: Allergies Coded Allergies Type Severity Reaction Last Updated Verified Cephalosporins Allergy Intermediate 07/11/21 Yes cephalexin Allergy Intermediate rash 07/11/21 No prochlorperazine Allergy Intermediate 07/11/21 Yes sargramostim Allergy Intermediate 07/11/21 Yes vancomycin Allergy Intermediate 07/11/21 No Physical Exam: PE: Constitutional: Well developed, well nourished, morbidly obese, no acute distress, non-toxic appearance. [] HENT: Normocephalic, atraumatic, bilateral external ears normal, oropharynx moist, no oral exudates, nose normal. [] Eyes: PERRLA, EOMI, conjunctiva normal, no discharge. [] Neck: Normal range of motion, no tenderness, supple, no stridor. [] Cardiovascular: Heart rate 91, regular rhythm, no murmur [] Lungs & Thorax: Bilateral breath sounds clear to auscultation [] Abdomen: Bowel sounds normal, soft, no tenderness, no masses, no pulsatile masses. [] Skin: Warm, dry, no erythema, no rash. [] Back: No tenderness, no CVA tenderness. [] Extremities: No tenderness, no cyanosis, no clubbing, ROM intact, no edema. [] Neurologic: Alert and oriented X 3, normal motor function, normal sensory function, no focal deficits noted. [] Psychologic: Affect normal, judgement normal, mood anxious. [] Current Patient Data: Vital Signs: Vital Signs Date Time Temp Pulse Resp B/P (MAP) Pulse Ox O2 Delivery O2 Flow Rate FiO2 07/30/21 14:33 116/79 (91) EKG: EKG: Sinus rhythm, rate 91, leftward axis, no ST elevation or depression. [] Radiology/Procedures: Radiology/Procedures: [] Impressions: Exam Date: 07/30/2021 2:25 PM XR CHEST 1V Indication: Reason: CP / Spl. Instructions: / History: . Comparison: May 05, 2021 FINDINGS/ IMPRESSION: Minimal left basilar scarring versus atelectasis is noted. The cardiac silhouette and pulmonary vasculature are within normal limits. There is no focal consolidation, pleural effusion or pneumothorax. The visualized osseous structures are intact. Electronically signed by: Caryn Lema MD (07/30/2021 2:34 PM) Abbott [id number] DICTATED AND SIGNED BY: CARYN LEMA MD DATE: 07/30/21 1434 CC: CHRISTY ALVAREZ DO; CATRACHO SIMENTAL MD ~ Heart Score: C/O Chest Pain: Yes HEART Score for Chest Pain: HEART Score for Chest Pain Response (Comments) Value History Moderately Suspicious 1 ECG Normal 0 Age < 45 0 Risk Factors 1 or 2 Risk Factors 1 Troponin < Normal Limit 0 Total 2 Risk Factors: Risk Factors: DM, Current or recent (<one month) smoker, HTN, HLP, family history of CAD, obesity. Risk Scores: Score 0 - 3: 2.5% MACE over next 6 weeks - Discharge Home Score 4 - 6: 20.3% MACE over next 6 weeks - Admit for Clinical Observation Score 7 - 10: 72.7% MACE over next 6 weeks - Early Invasive Strategies Course & Med Decision Making: Course & Med Decision Making Pertinent Labs and Imaging studies reviewed. (See chart for details) The patient's EKG is unremarkable. Her labs are unremarkable. Her troponin is negative. Her chest x-ray is negative for acute findings. The patient continues to have pain after 2 doses of 4 mg of morphine each. I discussed admitting the patient and she is in agreement. I spoke with Dr. Ryan and he has accepted the patient for admission for chest pain rule out. We will give 1 mg of Dilaudid prior to admission. [] Dragon Disclaimer: Dragon Disclaimer: This electronic medical record was generated, in whole or in part, using a voice recognition dictation system. Departure Departure: Impression: Primary Impression: Chest pain Disposition: ADMITTED INPATIENT Admitting Physician: Keith Ryan Condition: STABLE Referrals: CATRACHO SIMENTAL MD (PCP) CHRISTY ALVAREZ DO July 30, 2021 14:42
[2021-07-30 14:55] LABS: BASO # 0.3 x10^3/uL (0.0-0.2); BASO % 3 % (0-3); EOS # 0.3 x10^3/uL (0.0-0.7); EOS % 2 % (0-3); HEMATOCRIT 39.4 % (36.0-47.0); HEMOGLOBIN 13.2 g/dL (12.0-15.5); LYMPH # 2.8 x10^3/uL (1.0-4.8); LYMPH % 24 % (24-48); MEAN CORPUSCULAR HEMOGLOBIN 29 pg (25-35); MEAN CORPUSCULAR HGB CONC 34 g/dL (31-37); MEAN CORPUSCULAR VOLUME 86 fL (79-100); MONO # 0.9 x10^3/uL (0.0-1.1); MONO % 8 % (0-9); NEUT # 7.1 x10^3uL (1.8-7.7); NEUT % 63 % (31-73); PLATELET COUNT 251 x10^3/uL (140-400); RED BLOOD COUNT 4.56 x10^6/uL (3.50-5.40); RED CELL DISTRIBUTION WIDTH 13.6 % (11.5-14.5); WHITE BLOOD COUNT 11.3 x10^3/uL (4.0-11.0)
[2021-07-30] MEDS ORDERED: MORPHINE SULFATE 4 MG/ML DISP.SYRIN. IV ONE (15:00)
[2021-07-30] MEDS ORDERED: FAMOTIDINE 20 MG/2 ML VIAL IVP ONE (15:00)
[2021-07-30] MEDS ORDERED: diphenhydrAMINE 50 MG/ML VIAL IVP ONE (15:00)
[2021-07-30] MEDS ORDERED: HYDROmorphone PF 1 MG/ML DISP.SYRIN IVP ONE (16:45)
[2021-07-30] MEDS ORDERED: ONDANSETRON PF 4 MG/2 ML VIAL. IVP PRN (16:45)
[2021-07-30 17:44] LABS: CALCIUM 8.9 mg/dL (8.5-10.1); CREATININE 0.8 mg/dL (0.6-1.0); GFR 78.7; POTASSIUM 4.4 mmol/L (3.5-5.1)
[2021-07-30 17:52] LABS: ALBUMIN 3.4 g/dL (3.4-5.0); ALBUMIN/GLOBULIN RATIO 0.9 (1.0-1.7); TOTAL BILIRUBIN 0.5 mg/dL (0.2-1.0)
[2021-07-30] MEDS ORDERED: LISI20TA18 PO (20:15)
[2021-07-30] MEDS ORDERED: ATOR20TA58 PO (20:15)
[2021-07-30] MEDS ORDERED: HYDR-2155 PO (20:15)
[2021-07-30] MEDS ORDERED: SERT50TA PO (20:15)
[2021-07-30] MEDS ORDERED: [UNRECOGNIZED DRUG - OTHER] TOP (20:15)
[2021-07-30] MEDS ORDERED: ORPH-16 PO (20:15)
[2021-07-30 21:40] VITALS: BP 132/85
[2021-07-30] MEDS: CYCLOBENZAPRINE 10 MG TABLET. PO SCH (23:02)
[2021-07-30] MEDS: MORPHINE SULFATE 4 MG/ML DISP.SYRIN. IV PRN (23:03)
[2021-07-31] MEDS ORDERED: SERTRALINE 50 MG TABLET. PO SCH
[2021-07-31] MEDS ORDERED: ATORVASTATIN CALCIUM 20 MG TABLET PO SCH
[2021-07-31] MEDS: MORPHINE SULFATE 4 MG/ML DISP.SYRIN. IV PRN ×3 (04:12→09:52)
[2021-07-31 05:07] VITALS: BP 115/76
[2021-07-31 08:33] VITALS: BP 134/82
[2021-07-31] MEDS: CYCLOBENZAPRINE 10 MG TABLET. PO SCH (08:33)
[2021-07-31] MEDS ORDERED: LISINOPRIL 20 MG TABLET PO SCH (09:00)
--- NOTE | 2021-07-31 10:03 | HP ---
DATE OF SERVICE: 07/31/2021 ADMIT DATE: 07/30/2021 CHIEF COMPLAINT: Chest pain. HISTORY OF PRESENT ILLNESS: The patient is a 41-year-old female admitted to the ED with atypical epigastric pain starting at 7:00 in the morning. It was persistent, radiates to her shoulder blade, rates it at a 7/10. Workup in the ED was fairly unremarkable. EKG, x-rays and cardiac enzymes initially were negative. She was admitted then for serial enzymes and rule out. Her history is significant for the fact she is a smoker. She is trying to cut back to half a pack of cigarettes a day. She also drinks caffeine and has been taking [id number] ibuprofen, which will contribute to epigastric pain. PAST MEDICAL HISTORY: Significant for obesity, cancer of the distal leg, exact diagnosis is unclear. She has had radiation, chronic pain syndrome. She has hypertension, chronic migraine, degenerative arthritis and anxiety. PAST SURGICAL HISTORY: Other surgical history includes cholecystectomy, , hysterectomy, tonsillectomy. ALLERGIES: SHE HAS ALLERGIES TO CEPHALOSPORINS, CEPHALEXIN, VANCOMYCIN, AND PROCHLORPERAZINE, EXACT REACTION IS UNCLEAR. CURRENT MEDICATIONS: Reviewed. She was on scheduled oxycodone, Lipitor, lisinopril, Zoloft and nicotine patches. FAMILY HISTORY: Noncontributory. REVIEW OF SYSTEMS: Significant for the cigarette use. No recent travel. No COVID exposure. All other systems reviewed and turned to be negative. PHYSICAL EXAMINATION: GENERAL: When I saw her, this is a pleasant, middle-aged female. VITAL SIGNS: Showed a blood pressure of 115/76 mmHg, pulse is regular. She was afebrile, oxygen saturation 96% on room air. HEENT: Head is without trauma. Pupils are reactive. Sclerae nonicteric. Oropharynx is clear. NECK: Supple, no bruits. LUNGS: Otherwise clear. CARDIOVASCULAR: Regular heart tones. ABDOMEN: Soft. EXTREMITIES: Without edema. NEUROLOGIC: Focally intact. Speech is fluent. PERTINENT LABORATORY STUDIES: On admission, her hemoglobin was 13.2 g/dL with a white count of 11,300. Electrolytes all within normal range. Normal BUN and creatinine, electrolytes. The first set of troponin was 6, nonischemic. Transaminases were normal. Chest x-ray on admission was clear without any cardiopulmonary process. ASSESSMENT: 1. A 41-year-old female with atypical chest pain, most likely gastrointestinal in nature. 2. History of chronic pain syndrome. 3. Obesity. 4. Hyperlipidemia. PLAN: 1. Admit to the hospital. 2. Serial cardiac enzymes. 3. Continue home medications as ordered. KIMBERLY/JASON DR: Bita TID: [id number] CC: KAMILLE HAYDEN
--- NOTE | 2021-07-31 15:19 | DS ---
DATE OF DISCHARGE: 07/31/2021 ATTENDING PHYSICIAN: Dr. Ryan. FINAL DISCHARGE DIAGNOSES: 1. Atypical chest pain, coronary ischemia ruled out. 2. Gastroesophageal reflux disease. 3. Hypertension. 4. Chronic pain syndrome. 5. Degenerative arthritis. HISTORY AND PHYSICAL: The patient, age 41, who has chronic medical issues. She presented with chest pain, atypical in nature. Cardiac workup was fairly unremarkable. She was admitted overnight for cardiac rule out. PHYSICAL EXAMINATION: Please see the dictated note. PERTINENT LABORATORY AND X-RAY STUDIES: CBC, chemistry and all within normal range. Three sets of cardiac enzymes negative for coronary ischemia. EKG was nondiagnostic and the chest x-ray was clear. COURSE IN HOSPITAL: The patient was admitted. She was given intravenous morphine for breakthrough pain. I suspect she has developed tolerance over the years since she has been on her pain meds for the last 19 years. I reassured her cardiac enzymes are negative. She did not have any coronary ischemia. Strong encouragement to avoid further tobacco use and to avoid ibuprofen use. Her pain subsided. She was better the next day. She was discharged home with no changes on her meds. She should continue her Lipitor, hydrocodone p.r.n., lisinopril and Zoloft, doses unchanged. She will follow up with Dr. Cheko Gagnon. She was discharged then from our hospital in stable condition with explicit drug and followup care. KIMBERLY/NELIA KEANE: KIMBERLY/amber TID: [id number] CC: Cheko Gagnon MD
== END 2021-07-31 10:19 | disposition home or self-care (01) ==
LOC: ER 14:15 → ER HOLD 16:33 → 1 SOUTH 21:30
PROVIDERS: ADMIT Hospitalist; ATTEND Hospitalist
DX: R07.89 Other chest pain (principal); Z20.822 Contact with and (suspected) exposure to COVID-19; I10 Essential (primary) hypertension; K21.9 Gastro-esophageal reflux disease without esophagitis; M19.90 Unspecified osteoarthritis, unspecified site; G89.4 Chronic pain syndrome; G43.909 Migraine, unspecified, not intractable, without status migrainosus; F41.9 Anxiety disorder, unspecified; E66.9 Obesity, unspecified; E78.5 Hyperlipidemia, unspecified; F17.210 Nicotine dependence, cigarettes, uncomplicated; Z90.49 Acquired absence of other specified parts of digestive tract; Z90.710 Acquired absence of both cervix and uterus; Z98.891 History of uterine scar from previous surgery; Z68.42 Body mass index [BMI] 45.0-49.9, adult
CPT/HCPCS: 36415; 71045; 80053; 84484; 85025; 87426; 93005; 96374; 96375; 96376; 99285; G0378; J1170; J1200; J2270; J2405; J3490; U0003; G0379

== ENCOUNTER 2021-08-02 16:20 | Emergency (ER) | payer OTHER ==
[~2021-08-02] VITALS: Ht 162.6 cm; Wt 122.4 kg
[~2021-08-02 16:20] MED LIST changes: +ATOR20TA58 PO; +LISI20TA18 PO; +SERT50TA PO; +[UNRECOGNIZED DRUG - OTHER] TOP
[2021-08-02] MEDS ORDERED: IV RINGERS SOLUTION,LACTATED 1,000 ML IV SCH (16:45)
--- NOTE | 2021-08-02 17:10 | RAD ---
EXAMINATION: Chest radiograph. VIEWS: Single AP view of the chest COMPARISON: 07/30/2021 INDICATION:41 years, Female, chest pain. FINDINGS: Normal cardiomediastinal silhouette. No focal consolidation. No pleural effusion or pneumothorax. No acute osseous process. IMPRESSION: No acute cardiopulmonary process. Electronically signed by: Thony Paez DO (08/02/2021 5:07 PM) [id number]
[2021-08-02 17:11] LABS: BASO # 0.1 x10^3/uL (0.0-0.2); BASO % 1 % (0-3); EOS # 0.3 x10^3/uL (0.0-0.7); EOS % 3 % (0-3); HEMATOCRIT 36.7 % (36.0-47.0); HEMOGLOBIN 12.4 g/dL (12.0-15.5); LYMPH # 2.3 x10^3/uL (1.0-4.8); LYMPH % 28 % (24-48); MEAN CORPUSCULAR HEMOGLOBIN 29 pg (25-35); MEAN CORPUSCULAR HGB CONC 34 g/dL (31-37); MEAN CORPUSCULAR VOLUME 86 fL (79-100); MONO # 0.7 x10^3/uL (0.0-1.1); MONO % 8 % (0-9); NEUT # 4.9 x10^3uL (1.8-7.7); NEUT % 60 % (31-73); PLATELET COUNT 284 x10^3/uL (140-400); RED CELL DISTRIBUTION WIDTH 13.9 % (11.5-14.5); WHITE BLOOD COUNT 8.2 x10^3/uL (4.0-11.0)
[2021-08-02 17:19] LABS: CALCIUM 9.4 mg/dL (8.5-10.1); CREATININE 1.1 mg/dL (0.6-1.0); GFR 54.5; POTASSIUM 3.9 mmol/L (3.5-5.1)
[2021-08-02 17:25] LABS: ALBUMIN 3.3 g/dL (3.4-5.0); ALBUMIN/GLOBULIN RATIO 1.1 (1.0-1.7); MAGNESIUM 1.9 mg/dL (1.8-2.4); TOTAL BILIRUBIN 0.1 mg/dL (0.2-1.0); TOTAL PROTEIN 6.4 g/dL (6.4-8.2)
--- NOTE | 2021-08-02 18:06 | PHYS DOC ---
Past History Past Medical History: Anxiety, Arthritis, Cancer, Hypertension, Migraines Additional Past Medical Histor: CANCER RIGHT DISTAL THIGH WITH CHEMO, RADIATION AND SURGERY 2002 Past Surgical History: Cholecystectomy, , Hysterectomy, Oophorectomy, Tonsillectomy, Other Additional Past Surgical Histo: CANCER SURGERY ON LEG Smoking: Cigarettes, Less than 1pk/day Alcohol Use: Occasionally Drug Use: None General Adult EDM: Chief Complaint: CHEST PAIN HPI: HPI: Patient is a 41 year old female who returns to the emergency department via EMS with chest pain. Patient describes her pain as though "someone is sitting on [her] chest." She states this pain is similar to the pain she experienced on Sunday (3 days ago), where she was evaluated on an inpatient basis for atypical chest pain. Patient was given nitro patch as well as aspirin en route. Patient denies associated symptoms including lightheadedness, diaphoresis, nausea, palpitations, shortness of breath, cough. Review of Systems: Review of Systems: Constitutional: Denies fever, chills or generalized weakness Eyes: Denies change in visual acuity, visual field deficits or discharge HENT: Denies ear pain, nasal congestion or sore throat Respiratory: Denies cough or shortness of breath Cardiovascular: See HPI GI: Denies abdominal pain, nausea, vomiting, bloody stools or diarrhea : Denies dysuria or hematuria Musculoskeletal: Denies back pain or joint pain Integument: Denies rash or other skin lesion Neurologic: Denies headache, focal weakness or sensory changes Current Medications: Current Meds: Current Medications Medications (Trade) Dose Ordered Sig/Judy Route PRN Reason Start Time Stop Time Status Last Admin Dose Admin Lactated Ringer's 1,000 ml @ 1,000 mls/hr Q1H IV 08/02/21 16:45 08/02/21 17:44 DC 08/02/21 16:49 Ketorolac Tromethamine (Toradol 15mg Vial) 15 mg 1X ONCE IVP 08/02/21 18:15 08/02/21 18:34 DC 08/02/21 18:11 Lorazepam (Ativan Inj) 0.5 mg 1X ONCE IVP 08/02/21 18:15 08/02/21 18:34 DC 08/02/21 18:10 Ondansetron HCl (Zofran) 4 mg 1X ONCE IVP 08/02/21 18:30 08/02/21 18:34 DC 08/02/21 18:18 Allergies: Allergies: Allergies Coded Allergies Type Severity Reaction Last Updated Verified Cephalosporins Allergy Intermediate 08/02/21 Yes cephalexin Allergy Intermediate rash 08/02/21 No prochlorperazine Allergy Intermediate 08/02/21 Yes sargramostim Allergy Intermediate 08/02/21 Yes vancomycin Allergy Intermediate 08/02/21 No Physical Exam: PE: Constitutional: Obese, non-toxic appearance. HENT: Normocephalic, atraumatic, bilateral external ears normal, nose normal. Eyes: PERRL, EOMI, conjunctiva normal, no discharge. Neck: Normal range of motion, no stridor. Cardiovascular: Heart regular rate and rhythm. No apparent murmurs, rubs or gallops. Lungs & Thorax: Equal thoracic expansion, no increased work of breathing. Skin: Warm, dry, no erythema, no rash. Extremities: No cyanosis, no clubbing, ROM intact, no edema. Neurologic: Alert and oriented x4, normal motor function, normal sensory function, no focal deficits noted. Psychologic: Affect labile, fair judgment, or insight. Current Patient Data: Labs: Laboratory Tests Test 08/02/21 16:50 08/02/21 18:04 White Blood Count 8.2 x10^3/uL (4.0-11.0) Red Blood Count 4.30 x10^6/uL (3.50-5.40) Hemoglobin 12.4 g/dL (12.0-15.5) Hematocrit 36.7 % (36.0-47.0) Mean Corpuscular Volume 86 fL (79-100) Mean Corpuscular Hemoglobin 29 pg (25-35) Mean Corpuscular Hemoglobin Concent 34 g/dL (31-37) Red Cell Distribution Width 13.9 % (11.5-14.5) Platelet Count 284 x10^3/uL (140-400) Neutrophils (%) (Auto) 60 % (31-73) Lymphocytes (%) (Auto) 28 % (24-48) Monocytes (%) (Auto) 8 % (0-9) Eosinophils (%) (Auto) 3 % (0-3) Basophils (%) (Auto) 1 % (0-3) Neutrophils # (Auto) 4.9 x10^3uL (1.8-7.7) Lymphocytes # (Auto) 2.3 x10^3/uL (1.0-4.8) Monocytes # (Auto) 0.7 x10^3/uL (0.0-1.1) Eosinophils # (Auto) 0.3 x10^3/uL (0.0-0.7) Basophils # (Auto) 0.1 x10^3/uL (0.0-0.2) Sodium Level 144 mmol/L (136-145) Potassium Level 3.9 mmol/L (3.5-5.1) Chloride Level 106 mmol/L (98-107) Carbon Dioxide Level 28 mmol/L (21-32) Anion Gap 10 (6-14) Blood Urea Nitrogen 13 mg/dL (7-20) Creatinine 1.1 mg/dL (0.6-1.0) Estimated GFR (Cockcroft-Gault) 54.5 BUN/Creatinine Ratio 12 (6-20) Glucose Level 105 mg/dL (70-99) Calcium Level 9.4 mg/dL (8.5-10.1) Magnesium Level 1.9 mg/dL (1.8-2.4) Total Bilirubin 0.1 mg/dL (0.2-1.0) Aspartate Amino Transf (AST/SGOT) 16 U/L (15-37) Alanine Aminotransferase (ALT/SGPT) 40 U/L (14-59) Alkaline Phosphatase 86 U/L (46-116) Troponin I High Sensitivity 4 ng/L (4-50) 5 ng/L (4-50) Total Protein 6.4 g/dL (6.4-8.2) Albumin 3.3 g/dL (3.4-5.0) Albumin/Globulin Ratio 1.1 (1.0-1.7) Lipase 176 U/L (73-393) Vital Signs: Vital Signs Date Time Temp Pulse Resp B/P (MAP) Pulse Ox O2 Delivery O2 Flow Rate FiO2 08/02/21 18:43 86 16 130/74 (92) 97 Room Air 08/02/21 18:20 93 25 121/75 (90) 97 Room Air 08/02/21 17:57 89 36 157/88 (111) 99 08/02/21 17:40 95 21 156/69 (98) 100 08/02/21 16:26 98.1 103 24 159/108 (125) 98 Room Air EKG: EKG: EKG Interpreted by Dr. Lehman at 1630: Regular rate and rhythm 92 bpm with no ectopic beats. QT 360 ms/QTc 446 ms. No STEMI. Radiology/Procedures: Radiology/Procedures: PROCEDURE: PORTABLE CHEST 1V EXAMINATION: Chest radiograph. VIEWS: Single AP view of the chest COMPARISON: 07/30/2021 INDICATION:41 years, Female, chest pain. FINDINGS: Normal cardiomediastinal silhouette. No focal consolidation. No pleural effusion or pneumothorax. No acute osseous process. IMPRESSION: No acute cardiopulmonary process. Electronically signed by: Thony Paez DO (08/02/2021 5:07 PM) [id number] Heart Score: C/O Chest Pain: Yes HEART Score for Chest Pain: HEART Score for Chest Pain Response (Comments) Value History Slighlty/Non-Suspicious 0 ECG Normal 0 Age < 45 0 Risk Factors 1 or 2 Risk Factors 1 Troponin < Normal Limit 0 Total 1 Risk Factors: Risk Factors: HTN, obesity. Risk Scores: Score 0 - 3: 2.5% MACE over next 6 weeks - Discharge Home Score 4 - 6: 20.3% MACE over next 6 weeks - Admit for Clinical Observation Score 7 - 10: 72.7% MACE over next 6 weeks - Early Invasive Strategies Course & Med Decision Making: Course & Med Decision Making Pertinent Labs and Imaging studies reviewed. (See chart for details) Patient is a 41-year-old female who had an inpatient evaluation of atypical chest pain and was discharged day before yesterday. She presents with similar symptoms today. Patient reports she does have history of anxiety, for which she takes an SSRI. She also has chronic pain, for which she takes oxycodone at home. It is unclear if she has been taking her prescribed oxycodone or not, even with direct questioning to the patient. Patient has an appointment with her primary care doctor next week. She saw her therapist yesterday. During her stay, patient developed nausea and was provided with Zofran. Included in differential diagnosis was drug-induced chest pain, but patient refused to provide urine sample. This source of chest pain cannot be ruled out, but it seems most likely related to anxiety at this time. Work-up today does not reveal any evidence of acute cardiopulmonary pathology as a source for her pain. Patient's symptoms did improve briefly after administration of Ativan. Discussed findings with patient and advised that she take her prescription narcotics when she returns home. Patient understands and is agreeable to discharge plan. In fact, after being told patient should take her narcotics when she returns home, she was eager to leave. Liaon Disclaimer: Laly Disclaimer: This electronic medical record was generated, in whole or in part, using a voice recognition dictation system. Departure Departure: Impression: Primary Impression: Non-cardiac chest pain Additional Impression: Anxiety disorder Qualified Codes: F41.9 - Anxiety disorder, unspecified Disposition: HOME / SELF CARE / HOMELESS Condition: STABLE Referrals: CATRACHO SIMENTAL MD (PCP) WENDY ORDOÑEZ MD, SCOTT S MD Patient Instructions: Chest Pain (Nonspecific), [id number] Additional Instructions: EMERGENCY DEPARTMENT GENERAL DISCHARGE INSTRUCTIONS Thank you for coming to [facility] (ED) today and trusting us with you care. We trust that you had a positive experience in our Emergency Department. If you wish to speak to the department management, you may call the director at [phone]. YOUR FOLLOW UP INSTRUCTIONS ARE FOLLOWS: 1. Follow up with your primary care doctor. If you do not have a primary doctor, please ask for a resource list of physicians or clinics that may be able to assist you with follow up care. 2. The emergency provider has interpreted your imaging studies, if any were ordered. The radiology electronic publishing specialist also reviewed them. If there is a change in the findings, you will be notified in 48 hours when at all possible. 3. If a lab test or culture has been done, your results will be reviewed and you will be notified if you need a change in treatment. 4. Follow instructions verbalized to you and refer to the printouts if needed. ADDITIONAL INSTRUCTIONS AND INFORMATION: 1. Your care today has been supervised by a physician who is specially trained in emergency care. Many problems require more than one evaluation for a complete diagnosis and treatment. We recommend that you schedule your follow up appointment as recommended to ensure complete treatment of you illness or injury. If you are unable to obtain follow up care and continue to have a problem, or if your condition worsens, we recommend that you return to the ED. 2. We are not able to safely determine your condition over the phone nor are we able to give sound medical advice over the phone. For these safety reasons, if you call for medical advice we will ask you to come to the ED for further evaluation. 3. If you have any questions regarding these discharge instructions please call the ED at [phone]. SAFETY INFORMATION: In the interest of safety, wellness, and injury prevention; we encourage you to wear your seat belt, if you smoke; quite smoking, and we encourage family to use a protective helmet for bicycling and other sporting events that present an increased risk for head injury. IF YOUR SYMPTOMS WORSEN OR NEW SYMPTOMS DEVELOP, OR YOU HAVE CONCERNS ABOUT YOUR CONDITION; OR IF YOUR CONDITION WORSENS WHILE YOU ARE WAITING FOR YOUR FOLLOW UP APPOINTMENT; EITHER CONTACT YOUR PRIMARY CARE DOCTOR, THE PHYSICIAN WHOSE NAME AND NUMBER YOU WERE GIVEN, OR RETURN TO THE ED IMMEDIATELY. YUNIER STRONG August 02, 2021 18:06
[2021-08-02] MEDS ORDERED: KETOROLAC 15 MG/ML VIAL. IVP ONE (18:15)
[2021-08-02] MEDS ORDERED: ONDANSETRON PF 4 MG/2 ML VIAL. ONE (18:17)
[2021-08-02] MEDS ORDERED: ONDANSETRON PF 4 MG/2 ML VIAL. IVP ONE (18:30)
[2021-08-02 19:23] VITALS: BP 123/51
== END 2021-08-02 20:05 | disposition home or self-care (01) ==
LOC: ER 16:20
DX: F41.9 Anxiety disorder, unspecified (principal); R07.89 Other chest pain; M19.90 Unspecified osteoarthritis, unspecified site; I10 Essential (primary) hypertension; G43.909 Migraine, unspecified, not intractable, without status migrainosus; F17.210 Nicotine dependence, cigarettes, uncomplicated; Z88.1 Allergy status to other antibiotic agents; Z88.8 Allergy status to other drugs, medicaments and biological substances
CPT/HCPCS: 36415; 71045; 80053; 83690; 83735; 84484; 85025; 93005; 96361; 96374; 96375; 99285; J1885; J2060; J2405; J7120